=== PATIENT | male | born 1950 | race Caucasian/White ===

== ENCOUNTER 2019-04-16 20:39 | Inpatient (IN) | payer MEDICARE, BC ==
[2019-04-16] MEDS ORDERED: Rocuronium Bromide 10 MG/ML (10ML VIAL) ONE (20:52)
[2019-04-16 21:00] LABS: Hemoglobin 5.5 g/dL (14.0-18.0); Mean Corpuscular Hemoglobin 31.1 pg (27.0-31.0); Mean Platelet Volume 9.4 fL (7.4-10.4); Platelet Count 360 thou/uL (130-400); RBC Distribution Width 19.1 % (11.5-14.5); Red Blood Cell (RBC) Count 1.78 mill/uL (4.70-6.10); White Blood Cell (WBC) Count 18.8 thou/uL (4.8-10.8)
[2019-04-16] MEDS ORDERED: Ketamine 50 MG/ML (10ML VIAL) ONE (21:10)
[2019-04-16 21:14] LABS: Actual Bicarbonate (HCO3a) 15.5 mEq/L (22-28); Analyzer IN Cardio ER; Base Excess (BEa) -11.1 mEq/L (-2.0 to +3.0); CO2 Tension 37.7 mmHg (35.0-45.0); Carboxyhemoglobin (COHb) 1.6 gm% (0.0-3.0); Hemoglobin (Hb) 5.8 g/dL (14.0-18.0); O2 Tension (PaO2) 417.9 mmHg (> 80.0); Potassium - ABG Lab 4.47 mmol/L (3.70-5.30)
[2019-04-16 21:21] LABS: ALT (SGPT) 345 U/L (8-55); AST (SGOT) 616 U/L (5-34); Albumin 2.8 g/dL (3.4-4.8); Alkaline Phosphatase 55 U/L (40-110); Anion Gap 28 mmol/L (10-20); Bilirubin, Total 0.9 mg/dL (0.2-1.2); CK (CPK) 982 U/L (30-200); Calc. Creatinine Clearance 0 mL/min (70-130); Calcium 8.6 mg/dL (7.8-10.44); Carbon Dioxide 16 mmol/L (23-31); Chloride 99 mmol/L (98-107); Estimated GFR-MDRD 15; Globulin 2.3 g/dL (2.4-3.5); Glucose 178 mg/dL (80-115); Lipase 37 U/L (8-78); Potassium 4.8 mmol/L (3.5-5.1); Protein, Total 5.1 g/dL (5.8-8.1); Sodium 138 mmol/L (136-145)
--- NOTE | 2019-04-16 21:24 | RAD ---
Chest AP view INDICATION: CPR in progress; altered mental status COMPARISON: None FINDINGS: Lungs:Perihilar interstitial edema Cardiac silhouette:Mild to moderate cardiomegaly Pulmonary vasculature:Moderate pulmonary vascular congestion Pleural spaces:Small bilateral pleural effusions Upper abdomen:No abnormality seen. Osseous structures: No acute osseous abnormality. Additional findings:ET tube tip is seen 3.3 cm from the level of the tomasa. IMPRESSION: 1. Findings suspicious for mild CHF. 2. Intubation
[2019-04-16 21:25] LABS: Band 1 % (5-11); Eosinophils 1 % (0-10); Lymphocytes 13 % (21-51); MDiff Complete? YES; Monocytes 6 % (0-10); Neutrophil 79 % (42-75); Nucleated RBC 6 % (0); Platelet Morphology Comment Appears Adequate
[2019-04-16 21:29] LABS: Bilirubin Negative (Negative); Blood, Urine Negative (Negative); Clarity Turbid (Clear); Glucose, Urine (Dipstick) Normal (Negative); Leukocyte Negative Leu/uL (Negative); Nitrite Negative (Negative); Protein, Urine (Dipstick) 10 mg/dL (Neg-Trace); Urobilinogen Normal mg/dL (Less than 2)
[2019-04-16] MEDS ORDERED: Piperacillin/Tazobactam 4.5 GM VIAL ONE (21:29)
[2019-04-16 21:31] LABS: PTT 30.1 SEC (22.9-36.1); Prothrombin Time 22.3 SEC (12.0-14.7)
[2019-04-16 21:33] LABS: ALV-art Gradient 247.975 (0-20); Puncture Site RRA; pH, Arterial 7.23 (7.35-7.45)
[2019-04-16 21:34] LABS: BUN (Urea Nitrogen) 127 mg/dL (8.4-25.7)
--- NOTE | 2019-04-16 21:48 | RAD ---
Chest AP view INDICATION: Central venous catheter placement COMPARISON: Prior exam performed on April 16, 2019 at 8:39 PM FINDINGS: Lungs:The lungs are clear Cardiac silhouette:Stable cardia megaly Pulmonary vasculature:Stable pulmonary vascular congestion Pleural spaces:Small bilateral pleural effusions Upper abdomen:No abnormality seen. Osseous structures: No acute osseous abnormality. Additional findings:ET tube tip is seen just beyond the lower thoracic inlet. There is a new left IJ central venous catheter with its tip projecting in the region of the left brachiocephalic vein. IMPRESSION: New left IJ central venous catheter with the tip projecting in the region of the left bra chiocephalic vein. Stable CHF.
[2019-04-16 21:51] LABS: CKMB 27.3 ng/mL (0-6.6)
[2019-04-16] MEDS ORDERED: fentaNYL Citrate/PF 2,000 MCG in Sodium Chloride 0.9% 60 ML IV SCH (21:56)
--- NOTE | 2019-04-16 22:27 | CT ---
CT Brain WO Con: 04/16/2019 9:34 PM CLINICAL HISTORY: Altered mental status. IMAGING TECHNIQUE: Multiple CT images were obtained of the brain without IV contrast. COMPARISON: None. FINDINGS: Brain: No acute infarct or hemorrhage is evident. No midline shift. Ventricles: Normal. No hydrocephalus.. Skull: Intact.. Visualized Paranasal sinuses: Clear.. Mastoid air cells:Clear. Extracranial soft tissues:Normal. IMPRESSION: No acute intracranial abnormality.
[2019-04-16] MEDS ORDERED: Norepinephrine 8 MG/0.9% NS 250 ML ONE (22:30)
--- NOTE | 2019-04-16 22:41 | CT ---
CT OF THE ABDOMEN AND PELVIS WITHOUT IV CONTRAST INDICATION: History of CPR and sepsis COMPARISON: None FINDINGS: This examination is limited for the evaluation of solid organs and vascular structures due to the lac k of intravenous contrast. ABDOMEN: Lung bases: There is a small right and tiny left pleural effusion. There is bibasilar atelectasis. Th ere is a moderate cardiomegaly. There are prominent coronary artery and thoracic aortic calcifications. Liver: No focal lesion. Gallbladder: Mildly contracted Pancreas: Normal. Adrenal glands: Normal. Spleen: Normal. Kidneys and ureters: Normal. No hydronephrosis. Vasculature: There are severe vascular calcifications seen involving the visualized vasculature. Lymph nodes:No lymphadenopathy. Free fluid in abdomen:No free fluid is evident. PELVIS: Small and large bowel: Colonic diverticulosis and a mild amount retained stool within the colon. Jake lona catheter is seen within the gastric body. Appendix:Normal Bladder: Decompressed with a Brower catheter Rectal and perirectal soft tissues:Normal. Reproductive structures: Normal. Free fluid in pelvis: No free fluid is evident. Lymphadenopathy pelvis: No lymphadenopathy is evident. Osseous structures: Bilateral pars defects at L5 with grade 1 anterolisthesis. No acute fracture or s ubluxation demonstrated. There is scattered degenerative and osteoarthritic changes. Soft tissues:Normal. IMPRESSION: 1. Small right and tiny left pleural effusion with bibasilar atelectasis. 2. Colonic diverticulosis. 3. Bilateral pars defects at L5 with grade 1 anterolisthesis.
[2019-04-16] MEDS ORDERED: Furosemide 20 MG/2 ML VIAL ONE (23:12)
[2019-04-16] MEDS ORDERED: Pantoprazole 40 MG VIAL ONE (23:26)
[2019-04-16] MEDS ORDERED: Pantoprazole 80 MG, Admixture Fee 1 EACH in Sodium Chloride 0.9% 100 ML IVPB SCH (23:45)
[2019-04-16] MEDS ORDERED: Acetaminophen 650 MG Suppository PR PRN (23:46)
[2019-04-16] MEDS ORDERED: Ondansetron PF 4 MG/2 ML Vial IVP PRN (23:46)
--- NOTE | 2019-04-17 00:22 | PDOC.EVN ---
Event Note - Event Note Event Note: [id number]
[2019-04-17] MEDS ORDERED: Octreotide Acetate 50 MCG/ML AMP SLOW IVP SCH (00:30)
[2019-04-17] MEDS ORDERED: Octreotide Acetate 1,250 MCG in Sodium Chloride 0.9% 250 ML 250 ML IVPB SCH (00:30)
[2019-04-17] MEDS ORDERED: EPINEPHrine 4 MG in Dextrose 5% in Water 250 ML IV SCH (00:45)
[2019-04-17] MEDS ORDERED: Sodium Bicarb 50 MEQ/50 ML VIAL IVP SCH (00:45)
[2019-04-17] MEDS ORDERED: Octreotide Acetate 50 MCG/ML AMP ONE (00:57)
[2019-04-17] MEDS ORDERED: Dexamethasone 10 MG/ML VIAL ONE (01:21)
[2019-04-17] MEDS ORDERED: Dextrose 5 %-0.45 % NaCl 1,000 ML IV SCH (01:30)
[2019-04-17] MEDS: cefTRIAXone\\ROCEPHIN 1 GM in Sodium Chloride 0.9% 100 ML IVPB SCH (03:08)
[2019-04-17 04:02] LABS: Hemoglobin 8.6 g/dL (14.0-18.0); Mean Corpuscular HGB CONC 32.7 g/dL (32.0-36.0); Mean Corpuscular Hemoglobin 30.7 pg (27.0-31.0); Mean Corpuscular Volume 93.8 fL (78.0-98.0); Mean Platelet Volume 9.1 fL (7.4-10.4); Platelet Count 299 thou/uL (130-400); RBC Distribution Width 17.4 % (11.5-14.5); Red Blood Cell (RBC) Count 2.82 mill/uL (4.70-6.10); White Blood Cell (WBC) Count 18.1 thou/uL (4.8-10.8)
[2019-04-17] MEDS: Sodium Bicarbonate 150 MEQ in Dextrose 5% in Water 1,000 ML IV SCH ×2 (04:05→20:41)
[2019-04-17 04:06] LABS: PTT 31.4 SEC (22.9-36.1); Prothrombin Time 22.6 SEC (12.0-14.7)
[2019-04-17] MEDS ORDERED: Fentanyl BOLUS 250 ML IVPB PRN (04:13)
[2019-04-17] MEDS ORDERED: Propofol BOLUS 1,000 MG/100 ML VIAL IV PRN (04:13)
[2019-04-17] MEDS ORDERED: DISCONTINUE PREVIOUS NARCOTIC PAIN MEDICATIONS AND BENZODIAZEPINES FS SCH (04:13)
[2019-04-17 04:15] LABS: Band 1 % (5-11); Lymphocytes 3 % (21-51); MDiff Complete? YES; Monocytes 7 % (0-10); Neutrophil 89 % (42-75); Nucleated RBC 4 % (0); Platelet Morphology Comment Appears Adequate
[2019-04-17] MEDS ORDERED: Vecuronium 10 MG VIAL IV PRN (04:15)
[2019-04-17] MEDS ORDERED: DO NOT USE PRE-EXISTING LYTE PROTOCOL FS SCH (04:15)
[2019-04-17] MEDS ORDERED: Acetaminophen 1,000 MG in Premix Bag 1 BAG IVPB PRN (04:15)
[2019-04-17] MEDS ORDERED: ALL FLUIDS SHOULD BE DEXTROSE FREE IF POSSIBLE FS SCH (04:15)
[2019-04-17 04:25] LABS: ALT (SGPT) 497 U/L (8-55); AST (SGOT) 1001 U/L (5-34); Albumin 2.7 g/dL (3.4-4.8); Alkaline Phosphatase 60 U/L (40-110); Anion Gap 29 mmol/L (10-20); BUN (Urea Nitrogen) 123 mg/dL (8.4-25.7); Bilirubin, Total 1.8 mg/dL (0.2-1.2); Calc. Creatinine Clearance 22 mL/min (70-130); Calcium 8.2 mg/dL (7.8-10.44); Carbon Dioxide 17 mmol/L (23-31); Chloride 100 mmol/L (98-107); Estimated GFR-MDRD 16; Globulin 2.4 g/dL (2.4-3.5); Glucose 227 mg/dL (80-115); Potassium 4.3 mmol/L (3.5-5.1); Protein, Total 5.1 g/dL (5.8-8.1); Sodium 142 mmol/L (136-145)
[2019-04-17 04:29] LABS: Magnesium 2.4 mg/dL (1.6-2.6); Phosphorus 7.6 mg/dL (2.3-4.7)
[2019-04-17 05:11] LABS: CKMB 25.9 ng/mL (0-6.6)
[2019-04-17] MEDS: Norepinephrine 16 MG in Dextrose 5% in Water 234 ML IVPB SCH (05:16)
[2019-04-17 06:47] LABS: Actual Bicarbonate (HCO3a) 16.5 mEq/L (22-28); Base Excess (BEa) -5.9 mEq/L (-2.0 to +3.0); Calcium, Ionized 1.01 mmol/L (1.12-1.30); Carboxyhemoglobin (COHb) 1.9 gm% (0.0-3.0); Hemoglobin (Hb) 8.5 g/dL (14.0-18.0); O2 Tension (PaO2) 72.5 mmHg (> 80.0); Potassium - ABG Lab 3.65 mmol/L (3.70-5.30); pH, Arterial 7.48 (7.35-7.45)
[2019-04-17 07:01] LABS: CO2 Tension 22.4 mmHg (35.0-45.0)
[2019-04-17 07:02] LABS: Puncture Site RRAD
[2019-04-17] MEDS: Pantoprazole 80 MG, Admixture Fee 1 EACH in Sodium Chloride 0.9% 100 ML IVP SCH ×2 (07:54→17:22)
[2019-04-17 10:05] LABS: INR-International Normal Ratio 2.2; PTT 35.5 SEC (22.9-36.1); Prothrombin Time 23.9 SEC (12.0-14.7)
[2019-04-17 10:14] LABS: Hemoglobin 8.4 g/dL (14.0-18.0); Mean Corpuscular HGB CONC 32.8 g/dL (32.0-36.0); Mean Corpuscular Hemoglobin 31.2 pg (27.0-31.0); Mean Platelet Volume 9.4 fL (7.4-10.4); Platelet Count 251 thou/uL (130-400); RBC Distribution Width 17.6 % (11.5-14.5); Red Blood Cell (RBC) Count 2.68 mill/uL (4.70-6.10)
[2019-04-17 10:20] LABS: Anion Gap 28 mmol/L (10-20); BUN (Urea Nitrogen) 121 mg/dL (8.4-25.7); Calc. Creatinine Clearance 23 mL/min (70-130); Calcium 7.5 mg/dL (7.8-10.44); Carbon Dioxide 17 mmol/L (23-31); Chloride 100 mmol/L (98-107); Estimated GFR-MDRD 17; Glucose 280 mg/dL (80-115); Magnesium 2.3 mg/dL (1.6-2.6); Potassium 3.8 mmol/L (3.5-5.1); Sodium 141 mmol/L (136-145)
--- NOTE | 2019-04-17 10:22 | PDOC.HOSPP ---
- Subjective Encounter Date: 04/17/19 Encounter Time: 10:17 Subjective: Mr. Henning was seen today in follow-up of cardiac arrest and GI bleed. He is intubated. I spoke with his who is at bedside. He was recently hospitalized at [facility] for what sounds like a CHF exacerbation. He was placed on Lasix. He was told he had a weak heart, and functioning at 30%. His was told that he had blood in his stool prior to discharge, and his blood count was a little low- He was given 2 units of blood. He was anxious to go home , was feeling better after that, and was discharged. She says after going home he " went down". He became more and more weak, Stopped eating. He did not take anything over the counter. He got so weak he could barely stand or sit up. He vomiting some dark material, and she called EMS. He apparently went into either asystole or PEA, and ACLS was started. He was intubated in the ER and found to have a low Hemglobin. His states he was a heavy drinker in the past, and also a heavy smoker. He has been drinking up till March 06. He does not have any known history of liver disease. - Objective Vital Signs & Weight: Vital Signs (12 hours) Pulse Resp BP 04/17/19 07:03 68 04/17/19 06:00 24 H 04/17/19 04:00 24 H 04/17/19 02:23 69 113/68 04/17/19 02:21 24 H Weight Weight 179 lb 0.246 oz Most Recent Monitor Data Heart Rate from ECG 54 NIBP 92/52 NIBP BP-Mean 65 Respiration from ECG 18 SpO2 100 I&O: 04/16/19 04/17/19 04/18/19 06:59 06:59 06:59 Intake Total 378.0 Output Total 375 185 Balance 3.0 -185 Result Diagrams: 04/17/19 09:40 04/17/19 09:40 Hospitalist ROS - Medication Medications: Active Medications Generic Name Dose Route Start Last Admin Trade Name Freq PRN Reason Stop Dose Admin Pantoprazole Sodium 80 mg/ 100 mls @ 10 mls/hr 04/17/19 00:30 04/17/19 07:54 Miscellaneous Medication 1 IVP 100 mls each/ Sodium Chloride INF OMAR Administration Ceftriaxone Sodium 1 gm/ 100 mls @ 200 mls/hr 04/17/19 01:00 04/17/19 03:08 Sodium Chloride IVPB 100 mls Q24HR OMAR Administration Sodium Bicarbonate 150 meq/ 1,150 mls @ 75 mls/hr 04/17/19 03:30 04/17/19 04: 05 Dextrose/Water IV 1,150 mls .[id number] OMAR Administration Norepinephrine Bitartrate 16 250 mls @ 0 mls/hr 04/17/19 05:00 04/17/19 05:16 mg/ Dextrose/Water IVPB 250 mls INF OMAR Administration Protocol Titrate - Exam Eye: PERRL, anicteric sclera Heart: RRR, no murmur, no gallops, no rubs, normal peripheral pulses Respiratory: CTAB, no wheezes, no rales, no ronchi, normal chest expansion, no tachypnea, normal percussion Gastrointestinal: soft, non-tender, non-distended, normal bowel sounds, no palpable masses, no hepatomegaly Extremities: no cyanosis, 2+ LE edema Hosp A/P (1) Acute blood loss anemia Code(s): D62 - ACUTE POSTHEMORRHAGIC ANEMIA Status: Acute (2) GI bleed Code(s): K92.2 - GASTROINTESTINAL HEMORRHAGE, UNSPECIFIED Status: Acute (3) Chronic systolic heart failure Code(s): I50.22 - CHRONIC SYSTOLIC (CONGESTIVE) HEART FAILURE Status: Acute (4) Diabetes mellitus type 2 in nonobese Code(s): E11.9 - TYPE 2 DIABETES MELLITUS WITHOUT COMPLICATIONS Status: Chronic (5) Hypertension Code(s): I10 - ESSENTIAL (PRIMARY) HYPERTENSION Status: Chronic (6) Acute kidney injury Code(s): N17.9 - ACUTE KIDNEY FAILURE, UNSPECIFIED Status: Acute - Plan * Cardiac arrest- ? etiology- if in fact he has systolic heart failure- this may have been due to an arrhythmia. Records have been requested from [facility] * Continue Hypothermic protocol * Acute blood loss anemia due to GI bleed- continue Protonix drip, and Sandostatin/Octreotide drip * Transfuse as needed, and GI has been consulted * Acute kidney injury- this is possibly due to the GI bleed- will consult Nephrology * Continue Vent Support- PCCM following * Condition is guarded
[2019-04-17 10:25] LABS: CKMB 17.3 ng/mL (0-6.6); Critical Call CKMB RESULT DECREASING
--- NOTE | 2019-04-17 10:55 | RAD ---
CHEST 1 VIEW PORTABLE: HISTORY: Respiratory distress. Line placement position evaluation. COMPARISON: 04/16/2019. FINDINGS: NG tube, endotracheal tube, and left central line is in place. Cardiomegaly with bilateral vascular congestion and some patchy alveolar parenchymal changes particularly in the right lung and perihilar region worsening from the prior study raising concern for pneumonia. IMPRESSION: Worsening alveolar parenchymal changes in the right lung concerning for pneumonia. Life support tube s in place. POS: GEOVANNY
[2019-04-17 11:09] LABS: Band 13 % (5-11); Burr Cells MODERATE= 6-15 cells (100X) (0-1/hpf); Hypochromia SLIGHT = 6-15 cells (100X) (0-5/hpf); Lymphocytes 1 % (21-51); MDiff Complete? YES; Monocytes 6 % (0-10); Neutrophil 80 % (42-75); Nucleated RBC 1 % (0); Ovalocytes SLIGHT = 2-5 cells (100X) (0-1/hpf); Platelet Morphology Comment Appears Adequate; Polychromasia MODERATE = 3-4 cells (100X) (0-2/hpf); White Blood Cell (WBC) Count 16.6 thou/uL (4.8-10.8)
[2019-04-17] MEDS ORDERED: Dextrose 5% in Water 1,000 ML IV PRN (13:18)
[2019-04-17] MEDS ORDERED: Dextrose 50% Abboject 50 ML SYRINGE IVP PRN (13:18)
[2019-04-17 14:46] LABS: Hemoglobin 7.9 g/dL (14.0-18.0); Mean Corpuscular HGB CONC 31.9 g/dL (32.0-36.0); Mean Corpuscular Hemoglobin 30.5 pg (27.0-31.0); Mean Corpuscular Volume 95.6 fL (78.0-98.0); Mean Platelet Volume 9.2 fL (7.4-10.4); Platelet Count 241 thou/uL (130-400); RBC Distribution Width 17.7 % (11.5-14.5); Red Blood Cell (RBC) Count 2.58 mill/uL (4.70-6.10); White Blood Cell (WBC) Count 16.5 thou/uL (4.8-10.8)
[2019-04-17 14:52] LABS: INR-International Normal Ratio 2.1; PTT 35.2 SEC (22.9-36.1)
[2019-04-17 15:04] LABS: Anisocytosis SLIGHT = 6-15 cells (100X) (0-5/hpf); Band 15 % (5-11); Burr Cells SLIGHT = 2-5 cells (100X) (0-1/hpf); Hypochromia SLIGHT = 6-15 cells (100X) (0-5/hpf); MDiff Complete? YES; Metamyelocyte 1 % (0-0); Monocytes 2 % (0-10); Neutrophil 82 % (42-75); Ovalocytes SLIGHT = 2-5 cells (100X) (0-1/hpf); Platelet Morphology Comment Appears Adequate; Poikilocytosis SLIGHT = 6-15 cells (100X) (0-5/hpf); Polychromasia MODERATE = 3-4 cells (100X) (0-2/hpf); Spherocytes SLIGHT = 1-5 cells (100X) (None Seen)
[2019-04-17] MEDS: HumaLOG 300 UNITS/3 ML VIAL SC PRN ×2 (15:05→18:08)
[2019-04-17] MEDS: Lorazepam 2 MG/ML VIAL SLOW IVP PRN ×2 (15:14→21:54)
[2019-04-17 15:15] LABS: Anion Gap 27 mmol/L (10-20); BUN (Urea Nitrogen) 122 mg/dL (8.4-25.7); Calc. Creatinine Clearance 23 mL/min (70-130); Calcium 7.4 mg/dL (7.8-10.44); Carbon Dioxide 18 mmol/L (23-31); Chloride 100 mmol/L (98-107); Estimated GFR-MDRD 17; Glucose 325 mg/dL (80-115); Magnesium 2.3 mg/dL (1.6-2.6); Phosphorus 7.5 mg/dL (2.3-4.7); Potassium 3.7 mmol/L (3.5-5.1); Sodium 141 mmol/L (136-145)
--- NOTE | 2019-04-17 15:27 | CON ---
DATE OF CONSULTATION: 04/17/2019 REQUESTING PHYSICIAN: Jean Washington MD REASON FOR CONSULTATION: Anemia and GI bleeding. 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 History is obtained from nursing, my chart review, and review of records of recent [facility] hospitalization. The patient has a history of COPD with active tobacco abuse, hypertension, hyperlipidemia, and diabetes. He was hospitalized for four days from 04/04 through 04/08 recently at [facility]. Per those records, he had presented with worsening shortness of breath and lower extremity edema and was found to have congestive heart failure based on the laboratory studies and characteristic chest x-ray findings. He was treated with diuresis. He had an echocardiogram showing ejection fraction 30% to 35% and grade 3 diastolic dysfunction and there is a note that this was a new finding. He was also found to be anemic with hemoglobin 7.7. There was some concern for GI bleeding. For reasons that are unclear to me, he was not evaluated by Gastroenterology during that hospitalization. Evidently, the patient did well with significant clinical improvement in his respiratory status with diuresis and the plan was to have him follow up as outpatient for further cardiac workup including stress test. He evidently had a positive FOBT at that time. Unfortunately yesterday, the patient essentially had a syncopal episode and was unresponsive at home. Report is that he evidently had a single episode of coffee-grounds emesis prior to passing out. When EMS arrived, he was coded. It is unclear if he was in asystole, PEA, or what, but he did regain pulses and was brought here and admitted to the ICU. He is being kept on the hypothermia protocol. He was on pressors for a while, but does have been able to be weaned off. He remains intubated. He has an orogastric tube in place and notably has only had about 50 mL of coffee-ground material pulled from the orogastric tube since admission. He has not had any stool output at all. Certainly, no melena. His hemoglobin on admission was found to be 5.5, which is a bit down from his recent hospitalization with 2 units of RBCs, hemoglobin has come up to 8.4. More importantly, he has evidence of multiorgan damage from shock with acute kidney injury. BUN 121 and creatinine 3.56. Troponin was elevated to 2.17. Lactic acid elevated to 9.6 and elevated transaminases with AST 1001 and ALT 497. Nephrology and Critical Care have also been consulted. He evidently just had an echocardiogram, but I do not have the report on that. I am not sure if the patient has ever undergone upper or lower endoscopy in the past. PAST MEDICAL HISTORY: Hypertension, hyperlipidemia, diabetes, CHF with ejection fraction 30% to 35% at recent hospitalization at [facility], COPD, and ongoing tobacco abuse. SOCIAL HISTORY: Positive for ongoing tobacco abuse. [facility] records say he has not used alcohol, but per verbal report, he had been drinking recently, so this is unclear to me. FAMILY HISTORY: Unable to obtain from the patient. REVIEW OF SYSTEMS: Unable to obtain due to the patient being sedated and intubated. ALLERGIES: NO KNOWN DRUG ALLERGIES. OUTPATIENT MEDICATIONS: 1. Potassium gluconate. 2. Krill oil. 3. Lasix 40 mg daily. 4. Acetaminophen with codeine. 5. Glipizide. 6. Aspirin 81 mg daily. 7. Zoloft. 8. Lyrica. 9. Trazodone. 10. Pantoprazole 40 mg daily. 11. Coreg. 12. Tramadol. 13. Chantix. INPATIENT MEDICATIONS: 1. Ceftriaxone 1 g IV q.24 hours. 2. Pantoprazole drip. 3. Octreotide drip. 4. Propofol drip. 5. Vecuronium drip. PHYSICAL EXAMINATION: VITAL SIGNS: Temperature 91.0 on hypothermia protocol, pulse 65, blood pressure 91/56, and 100% oxygen saturation on vent. GENERAL: Critically ill, pale, 68-year-old man, sedated, and intubated. SKIN: He is pale. No jaundice. No rashes were palpable. HEENT: Eyes, no scleral icterus. He does open and closes eyes spontaneously. ENT, the patient is intubated. Orogastric tube in place, 50 mL of dark coffee-ground material from the OG tube and this represents the entire amount suctioned out today. LYMPH: No submandibular or supraclavicular lymphadenopathy. Thyroid, nontender to palpation. HEART: Regular rate and rhythm. LUNGS: Bilateral vent sounds. ABDOMEN: Nondistended. Bowel sounds are present. Nontender to palpation. EXTREMITIES: 1 to 2+ bilateral lower extremity edema. NEURO: The patient does not follow commands. LABORATORY STUDIES: Admission hemoglobin was 5.5 with MCV 100. After 2 units RBC transfusion, hemoglobin is up to 8.4 and stable today. WBC 16.6 and platelets 251. Sodium 141, potassium 3.8, BUN 121, and creatinine 3.56. INR 2.2. Glucose 280, total bilirubin 1.8, alkaline phosphatase 60, AST initially 616 now up to 1001, ALT initially 345 now up to 497, albumin 2.7, and lipase 37. TSH 6.8. BNP elevated to 4014. Troponin elevated to 2.176, CK was 982, and CK-MB elevated to 27.3. Lactic acid initially 9.6 now down to 5.0. Blood and urine cultures, no growth to-date at 12 hours. IMAGING STUDIES: Chest x-ray shows right lung alveolar changes concerning for pneumonia. Brain CT shows no acute processes. CT of the abdomen and pelvis demonstrates cardiomegaly and diverticulosis. There is no lymphadenopathy or free fluid in the abdomen. Normal appearing liver, spleen, and pancreas. ASSESSMENT AND PLAN: 1. Anemia, acute on chronic, macrocytic. 2. Coffee-grounds emesis, a single episode on presentation, with no further evidence of overt bleeding since admission last night. 3. Congestive heart failure, with lower ejection fraction evidently new based on recent [facility] echocardiogram. 4. Elevated troponin. 5. Cardiogenic shock, status post cardiac arrest, now on hypothermia protocol. 6. Acute on chronic kidney injury. 7. Shock liver. 8. Coagulopathy. The patient's presentation certainly does not seem consistent with hypovolemic or hemorrhagic shock. He had a single episode of coffee-grounds emesis immediately preceding his syncopal episode and cardiac arrest, but there has been no further evidence of overt bleeding since he arrived here, and hemoglobin responded well to initial transfusion and has been stable today. I would not blame an acute gastrointestinal bleed for this presentation. Rather, he evidently had evidence of worsening cardiac function during his recent [facility] hospitalization, has elevated troponin as well as BNP here, so cardiogenic shock seems much more likely to me. He has evidence of multiorgan failure due to this as well as shock liver. He is certainly too ill to do any endoscopic investigations at this time, particularly again there has been no further evidence of overt bleeding since arrival. I would recommend continuing to trend the H and H, transfuse as needed. Monitor for any signs of overt bleeding going forward. I would continue the IV pantoprazole, but I think the octreotide can be discontinued. GI can follow along. The patient's prognosis is guarded. We would also advise consideration of formal Cardiology consultation pending echocardiogram results, but would leave that decision up to Primary Service. Thank you for the consultation. Please call anytime with questions or concerns. Job ID: [id number]
[2019-04-17 15:51] LABS: CKMB 18.6 ng/mL (0-6.6)
[2019-04-17 20:39] LABS: Hemoglobin 7.8 g/dL (14.0-18.0); Mean Corpuscular HGB CONC 32.5 g/dL (32.0-36.0); Mean Corpuscular Hemoglobin 30.2 pg (27.0-31.0); Mean Corpuscular Volume 92.9 fL (78.0-98.0); Mean Platelet Volume 8.6 fL (7.4-10.4); Platelet Count 264 thou/uL (130-400); Red Blood Cell (RBC) Count 2.59 mill/uL (4.70-6.10); White Blood Cell (WBC) Count 18.1 thou/uL (4.8-10.8)
[2019-04-17 20:47] LABS: PTT 35.7 SEC (22.9-36.1); Prothrombin Time 22.1 SEC (12.0-14.7)
[2019-04-17 20:58] LABS: Band 9 % (5-11); Hypochromia SLIGHT = 6-15 cells (100X) (0-5/hpf); Lymphocytes 3 % (21-51); MDiff Complete? YES; Monocytes 1 % (0-10); Neutrophil 87 % (42-75); Platelet Morphology Comment Appears Adequate
[2019-04-17 21:11] LABS: Anion Gap 18 mmol/L (10-20); BUN (Urea Nitrogen) 117 mg/dL (8.4-25.7); Calc. Creatinine Clearance 23 mL/min (70-130); Calcium 7.4 mg/dL (7.8-10.44); Carbon Dioxide 27 mmol/L (23-31); Chloride 101 mmol/L (98-107); Estimated GFR-MDRD 17; Glucose 276 mg/dL (80-115); Magnesium 2.2 mg/dL (1.6-2.6); Phosphorus 6.5 mg/dL (2.3-4.7); Potassium 3.2 mmol/L (3.5-5.1); Sodium 143 mmol/L (136-145)
[2019-04-17 21:20] LABS: CKMB 12.8 ng/mL (0-6.6); Critical Call CKMB RESULT DECREASING
--- NOTE | 2019-04-17 21:27 | CON ---
DATE OF CONSULTATION: CONSULTING PHYSICIAN: Benedict Doherty MD REQUESTING PHYSICIAN: ER physician. REASON FOR CONSULTATION: Acute kidney injury. IMPRESSION: 1. Acute kidney injury, this is likely hemodynamically mediated in the context of possible cardiac event compounded by severe anemia. 2. Metabolic acidosis in the context of problem #1. PLAN: 1. The patient currently is not oliguric. Hopefully, the patient will begin recovery. However, for now, the patient to be on gentle IV fluid resuscitation. We will use a bicarb-based infusion to help address the metabolic acidosis in this patient. 2. Once the patient is able to be off pressors and unable to maintain his hemodynamics, we will likely discontinue the IV fluid to avoid precipitating worsening cardiac failure/pulmonary congestion. 3. Renally dose all medications and avoid potentially nephrotoxic agents. 4. Blood transfusions on p.r.n. basis. 5. Further management to be dependent on the clinical course. At this point, there is no emergent indication for renal replacement therapy. Hopefully, renal function will improve and this modality of treatment will not be needed unless the renal function does not improve significantly. HISTORY OF PRESENT ILLNESS: History is that of 68-year-old gentleman who was recently hospitalized at [facility] this month with anemia and was subsequently discharged with about a hemoglobin of 7.7. The patient's syncopized at home and was noted with a hemoglobin of 5. According to record, during the hospitalization, evidence of gastrointestinal bleed was noted, though no significant workup was carried out. The patient on presentation was noted with a history of coffee-grounds emesis with hemoglobin down to 5.5. On presentation, the renal function was noted to be worse with a creatinine of 4.07, bicarb of 16, BNP of 4014, hemoglobin of 5.5 with a white count of 18,000. PAST MEDICAL HISTORY: Significant for congestive heart failure with EF about 30% to 35%, hypertension, dyslipidemia, diabetes myelitis, tobacco abuse, COPD. MEDICATIONS: Reviewed as documented on PPDai. ALLERGIES: NO KNOWN DRUG ALLERGIES. SOCIAL HISTORY: Significant for ongoing tobacco use. FAMILY HISTORY: Could not be obtained at this point. REVIEW OF SYSTEMS: Could not be obtained as the patient is sedated and intubated. PHYSICAL EXAMINATION: GENERAL/VITAL SIGNS: The patient was found hypothermic protocol with the following vital signs. Blood pressure 118/62, on pressors, temperature 91. HEENT: Unremarkable. CARDIOVASCULAR: First and second heart sounds were heard. RESPIRATORY: Revealed vented sounds. DIGESTIVE: Revealed a benign abdomen. EXTREMITIES: Some pedal edema. NEUROLOGICAL: The patient is sedated and intubated. LYMPHATICS: No peripheral lymphadenopathy. SUMMARY: A 68-year-old gentleman who presented here status post syncopal episode at home, noted to be severely anemic with evidence of nonoliguric acute tubular necrosis. Thank you for this consultation. We will follow with you. Job ID: [id number]
[2019-04-18] MEDS: HumaLOG 300 UNITS/3 ML VIAL SC PRN ×5 (00:23→21:47)
[2019-04-18] MEDS: cefTRIAXone\\ROCEPHIN 1 GM in Sodium Chloride 0.9% 100 ML IVPB SCH (00:34)
[2019-04-18 01:11] LABS: Anion Gap 16 mmol/L (10-20); BUN (Urea Nitrogen) 112 mg/dL (8.4-25.7); Calc. Creatinine Clearance 24 mL/min (70-130); Calcium 7.4 mg/dL (7.8-10.44); Carbon Dioxide 30 mmol/L (23-31); Chloride 100 mmol/L (98-107); Estimated GFR-MDRD 18; Glucose 268 mg/dL (80-115); Sodium 143 mmol/L (136-145)
[2019-04-18 01:13] LABS: Potassium 2.9 mmol/L (3.5-5.1)
[2019-04-18] MEDS ORDERED: Potassium Chloride 40 MEQ in Premix Bag 1 BAG IVPB SCH (03:30)
[2019-04-18] MEDS: Propofol 1,000 MG/100 ML VIAL IV PRN (03:31)
[2019-04-18 05:14] LABS: Phosphorus 5.7 mg/dL (2.3-4.7)
[2019-04-18 05:17] LABS: Calcium 7.4 mg/dL (7.8-10.44); Magnesium 2.2 mg/dL (1.6-2.6)
[2019-04-18 05:18] LABS: ALT (SGPT) 362 U/L (8-55); AST (SGOT) 450 U/L (5-34); Albumin 2.2 g/dL (3.4-4.8); Alkaline Phosphatase 52 U/L (40-110); Anion Gap 14 mmol/L (10-20); BUN (Urea Nitrogen) 113 mg/dL (8.4-25.7); Bilirubin, Direct 0.9 mg/dL (0.1-0.3); Bilirubin, Total 1.1 mg/dL (0.2-1.2); Calc. Creatinine Clearance 25 mL/min (70-130); Calcium 7.3 mg/dL (7.8-10.44); Carbon Dioxide 32 mmol/L (23-31); Chloride 101 mmol/L (98-107); Estimated GFR-MDRD 19; Glucose 231 mg/dL (80-115); Protein, Total 4.2 g/dL (5.8-8.1); Sodium 144 mmol/L (136-145)
[2019-04-18 05:23] LABS: Potassium 2.9 mmol/L (3.5-5.1)
[2019-04-18 05:33] LABS: CKMB 9.9 ng/mL (0-6.6); Critical Call CKMB RESULT DECREASING
[2019-04-18 05:36] LABS: Band 4 % (5-11); Hemoglobin 7.6 g/dL (14.0-18.0); Hypochromia SLIGHT = 6-15 cells (100X) (0-5/hpf); Lymphocytes 6 % (21-51); MDiff Complete? YES; Mean Corpuscular HGB CONC 32.2 g/dL (32.0-36.0); Mean Corpuscular Hemoglobin 30.1 pg (27.0-31.0); Mean Corpuscular Volume 93.4 fL (78.0-98.0); Mean Platelet Volume 9.2 fL (7.4-10.4); Monocytes 2 % (0-10); Neutrophil 88 % (42-75); Nucleated RBC 8 % (0); Platelet Count 279 thou/uL (130-400); Platelet Morphology Comment Appears Adequate; Red Blood Cell (RBC) Count 2.52 mill/uL (4.70-6.10); White Blood Cell (WBC) Count 17.1 thou/uL (4.8-10.8)
[2019-04-18] MEDS: Pantoprazole 80 MG, Admixture Fee 1 EACH in Sodium Chloride 0.9% 100 ML IVP SCH ×2 (06:46→18:36)
[2019-04-18 06:48] LABS: Base Excess (BEa) 6.6 mEq/L (-2.0 to +3.0); CO2 Tension 38.1 mmHg (35.0-45.0); Calcium, Ionized 0.97 mmol/L (1.12-1.30); Carboxyhemoglobin (COHb) 1.6 gm% (0.0-3.0); Hemoglobin (Hb) 9.7 g/dL (14.0-18.0); O2 Tension (PaO2) 74.2 mmHg (> 80.0); pH, Arterial 7.51 (7.35-7.45)
[2019-04-18 07:08] LABS: Puncture Site RRAD
[2019-04-18 07:09] LABS: ALV-art Gradient 163.375 (0-20)
--- NOTE | 2019-04-18 08:07 | CON ---
DATE OF CONSULTATION: HISTORY OF PRESENT ILLNESS: Bear Henning is a 68-year-old gentleman, who brought into the ER last night after his noticed that he was vomiting and shortly thereafter, he had difficulty breathing. From the ER note, his initial blood pressure was 134/71, pulse 92, respirations 14, saturations were 89%. Apparently, some kind of cardiac arrest arose. He was intubated and started on a cooling blanket. It is unclear what his initial rhythm was, but according to the doctor, it was his VFib or Vtach. His is at the bedside who states that was just discharged from the hospital a week ago from [facility] here locally with a diagnosis of renal failure, not better to be dialyzed, congestive heart failure with 30% EF. She brought a list of medicine from home, which included Protonix 40, Zoloft 100, Coreg 3.125, aspirin, glipizide 5 mg, Lyrica 150, Lasix 40, Chantix. The patient has a history of heavy alcohol and tobacco abuse in the past. The says he has no prior history of pneumonia or TB or bronchial asthma. PAST MEDICAL HISTORY: Otherwise, pertinent for apparently some kind of liver issues, CHF, renal failure, hypothyroidism, he is in the process of trying to get discharge from [facility]. PAST SURGICAL HISTORY: says none. 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 REVIEW OF SYSTEMS: Unobtainable. He is on a cooling blanket. PHYSICAL EXAMINATION: VITAL SIGNS: Blood pressure 92/52, pulse 60, respirations 18. Brower catheter is 90. HEENT: Pupils are equal. CHEST: Decreased breath sounds. Rhonchi. CARDIAC: Normal S1 and S2. No gallops. ABDOMEN: No masses. LABORATORY DATA: White count 18,000, H and H 8 and 26, and platelet count is 299. INR is 2. PO2 is 72, pCO2 of 20, pH 7.48 at a rate of 24, 50%, PEEP of 7. BUN and creatinine of 123 and 3.7, bicarb is 17. His AST is 1000, ALT is 495. BNP is 4000. Cortisol of 75. Thyroid function is 6.8, slightly elevated. X-ray shows minimal infiltrate in the right lung than much of the left lung. IMPRESSION: 1. Status post cardiopulmonary arrest, unclear whether he has baseline ventricular tachycardia, ventricular fibrillation, or pulseless electrical activity. 2. Abnormal liver function, probably cirrhosis. 3. Increased renal failure. 4. Diabetes. 5. Hypothyroidism. 6. Tobacco abuse. PLAN: He was started on a cooling protocol for out of hospital cardiac arrest. At this stage, he has multiorgan failure. He is on pressors bicarb drip. He is on octreotide drip, Levophed drip, empiric antibiotics. Once his cooling resolves, reassess neurological status, pulmonary status, renal status to see whether he needs to be dialyzed etc. Otherwise, serial exam. Echo will be ordered. This is a 45-minute critical time. Job ID: [id number]
--- NOTE | 2019-04-18 08:24 | PRG ---
DATE OF SERVICE: SUBJECTIVE: Bear Henning remains intubated in the vent. He is off sedation for the time being this morning. OBJECTIVE: VITAL SIGNS: Blood pressure is 92 systolic, pulse 76, saturations 100%, respirations 12. HEENT: Pupils 2 mm. He is pretty much encephalopathic. CHEST: Extensive rhonchi, right greater than left. CARDIAC: Sinus tach. ABDOMEN: Soft. NEUROLOGIC: Encephalopathic. He is cool. He is paralyzed. He is sedated. IMAGING STUDIES: His x-ray shows extensive right-sided infiltrate. So far, cultures are negative. LABORATORY DATA: His lab shows worsening renal failure with BUN and creatinine of 113 and 3.34, glucose is 231, AST is 450, phosphorus is 5.7. Abdomen is low at 2.2. IMPRESSION: 1. Status post cardiopulmonary arrest, possible anoxic injury. 2. Baseline underlying renal failure, worsening. 3. Probably aspiration pneumonia. 4. Liver disease. PLAN: 1. We will hold sedation. He was just recently discharged from [facility] here locally with a diagnosis of presumed CHF, renal failure, anemia. 2. I am concerned he has multiorgan failure with probably anoxic injury. Antibiotics being adjusted. IV fluids being adjusted. His bicarb is 34. His bicarb is discontinued. If his renal status does not improve, he may require dialysis. Nephrology is consulted. 3. We will follow. TIME SPENT: One-half hour of critical time. Job ID: [id number]
--- NOTE | 2019-04-18 08:40 | HP ---
CHIEF COMPLAINT: Cardiac arrest. HISTORY OF PRESENT ILLNESS: Mr. Henning is a 68-year-old male with past medical history of ? congestive heart failure, was brought to the emergency room by EMS for cardiac arrest. As the patient was having dinner with his , after that started vomiting. EMS was called. During transport to the hospital, the patient had a cardiac arrest. CPR was performed. In the emergency room, the patient had weak pulses. The patient intubated and mechanically ventilated. Central venous catheter was inserted. Currently, the patient is post cardiac arrest. Hypothermia is started in the ED. Additional history obtained. The patient was released from [facility] one week ago, thought he had GI bleeding, endoscope was done. Also had CHF at that time. Tonight, the patient was eating at home, got choked, then vomited, otherwise likely aspirated. reports patient has history of alcoholism, currently smokes one carton of cigarettes a week. PAST MEDICAL HISTORY: 1. Congestive heart failure. 2. Chronic kidney disease. 3. Diabetes mellitus type 2. 4. Hypertension. 5. Arthritis. PAST SURGICAL HISTORY: No reported past surgical history at this time. PSYCHIATRIC HISTORY: Reported anxiety. SOCIAL HISTORY: He is a former heavy drinker per family. He is a heavy smoker. HOME MEDICATIONS: Please see home medication reconciliation form for updated medications. ALLERGIES: NO KNOWN ALLERGIES. REVIEW OF SYSTEMS: Unable to obtain. Patient currently intubated and sedated post cardiac arrest. PHYSICAL EXAMINATION: GENERAL: The patient is intubated, sedated. VITAL SIGNS: Blood pressure 133/79, pulse is 80, temperature is 94.8, pulse oximetry 100%. Currently, patient is on Levophed. HEAD AND NECK: Normocephalic. NECK: Supple. CHEST: Coarse bilateral breath sounds. HEART: Distant heart sounds. ABDOMEN: Bowel sounds hypoactive. NEUROLOGIC: Intubated and sedated. PSYCHIATRIC: Unable to assess. EXTREMITIES: No clubbing, no cyanosis. LABORATORY DATA: CT of the abdomen showed a small right and tiny pleural effusion, colonic diverticulosis. CT of the brain, no acute findings. Lactic acid is elevated at 9.6. BNP is more than 4000. Troponin 2.1. INR is 2. ABGs, pH 7.23, pCO2 of 37, PO2 is 417. This was done on 100% FiO2 on the ventilator. Sodium is 138, potassium 4.8, BUN is 127, creatinine 4.0. WBC count is 18.8, hemoglobin 5.5, platelets 360. Chest x-ray is suspicious for mild CHF. ASSESSMENT: 1. Cardiac arrest post CPR with return of spontaneous circulation. 2. Anemia, probably secondary to acute blood loss. 3. Gastrointestinal bleeding ? 4. Congestive heart failure history. 5. History of alcoholism. 6. Acute on chronic renal failure. 7. Lactic acidosis. 8. Metabolic acidosis. PLAN: 1. Admit to ICU. 2. Continue full ventilator support. 3. Hypothermia protocol started in the ED. 4. ED physician consulting advisor to command in combat for critical care management. 5. Keep n.p.o. 6. Titrate vasopressors for map of 65. 7. Type and cross and transfuse packed RBCs. 8. IV proton pump inhibitor drip. 9. To consult GI for evaluation and further management. 10. DVT prophylaxis, SCDs. 11. GI prophylaxis. Patient on IV proton pump inhibitor. 12. Patient's condition is very critical. 13. Expected length of stay 3 midnights or more. Job ID: [id number]
[2019-04-18 09:11] LABS: Hemoglobin 7.7 g/dL (14.0-18.0); Mean Corpuscular HGB CONC 31.8 g/dL (32.0-36.0); Mean Corpuscular Hemoglobin 30.2 pg (27.0-31.0); Mean Corpuscular Volume 94.9 fL (78.0-98.0); Mean Platelet Volume 9.2 fL (7.4-10.4); Platelet Count 286 thou/uL (130-400); RBC Distribution Width 18.1 % (11.5-14.5); Red Blood Cell (RBC) Count 2.54 mill/uL (4.70-6.10); White Blood Cell (WBC) Count 18.4 thou/uL (4.8-10.8)
[2019-04-18 09:32] LABS: Anion Gap 18 mmol/L (10-20); BUN (Urea Nitrogen) 111 mg/dL (8.4-25.7); Calc. Creatinine Clearance 25 mL/min (70-130); Calcium 7.5 mg/dL (7.8-10.44); Carbon Dioxide 27 mmol/L (23-31); Chloride 104 mmol/L (98-107); Estimated GFR-MDRD 19; Glucose 212 mg/dL (80-115); Magnesium 2.3 mg/dL (1.6-2.6); Potassium 3.6 mmol/L (3.5-5.1); Sodium 145 mmol/L (136-145)
[2019-04-18] MEDS: Cefepime 0.5 GM, Admixture Fee 1 EACH in Sodium Chloride 0.9% 100 ML IVPB SCH ×2 (09:33→21:27)
[2019-04-18] MEDS: Sodium Chloride 0.9% 1,000 ML IV SCH ×2 (09:34→18:36)
[2019-04-18 09:38] LABS: CKMB 6.4 ng/mL (0-6.6); Phosphorus 5.6 mg/dL (2.3-4.7)
--- NOTE | 2019-04-18 09:50 | PDOC.HOSPP ---
- Subjective Encounter Date: 04/18/19 Encounter Time: 09:46 Subjective: Mr. Henning was seen today in follow-up of cardiac arrest and GI bleed. He is currently intubated. He was reported to follow some commands when the sedation was lifted. - Objective Vital Signs & Weight: Vital Signs (12 hours) Pulse Resp BP 04/18/19 08:00 10 L 04/18/19 07:09 69 04/18/19 06:00 14 04/18/19 04:00 14 04/18/19 02:14 64 95/58 L 04/18/19 02:00 14 04/18/19 00:00 14 04/17/19 22:17 88 125/82 04/17/19 22:00 14 Weight Weight 182 lb 12.211 oz Most Recent Monitor Data Heart Rate from ECG 70 NIBP 92/57 NIBP BP-Mean 68 Respiration from ECG 12 SpO2 100 I&O: 04/17/19 04/18/19 04/19/19 06:59 06:59 06:59 Intake Total 378.0 2237.3 145.1 Output Total 375 1492 115 Balance 3.0 745.3 30.1 Result Diagrams: 04/18/19 08:26 04/18/19 08:26 Additional Labs: Accuchecks 04/18/19 04/18/19 04/17/19 06:33 00:16 18:10 POC Glucose 256 H 291 H 318 H 04/17/19 15:07 POC Glucose 338 H Hospitalist ROS - Medication Medications: Active Medications Generic Name Dose Route Start Last Admin Trade Name Freq PRN Reason Stop Dose Admin Pantoprazole Sodium 80 mg/ 100 mls @ 10 mls/hr 04/17/19 00:30 04/18/19 06:46 Miscellaneous Medication 1 IVP 100 mls each/ Sodium Chloride INF OMAR Administration Norepinephrine Bitartrate 16 250 mls @ 0 mls/hr 04/17/19 05:00 04/17/19 05:16 mg/ Dextrose/Water IVPB 250 mls INF OMAR Administration Protocol Titrate Sodium Chloride 1,000 mls @ 100 mls/hr 04/18/19 08:15 04/18/19 09:34 Normal Saline 0.9% IV 1,000 mls .Q10H OMAR Administration Cefepime HCl 0.5 gm/ 100 mls @ 0 mls/hr 04/18/19 09:00 04/18/19 09:33 Miscellaneous Medication 1 IVPB 100 mls each/ Sodium Chloride Q12HR OMAR Administration Insulin Human Lispro 0 units 04/17/19 13:18 04/18/19 06:42 Humalog SC 4 unit .MILD SLIDING SCALE PRN Administration MILD SLIDING SCALE Protocol Lorazepam 2 mg 04/17/19 04:13 04/17/19 21:54 Ativan SLOW IVP 05/17/19 04:13 2 mg Q1H PRN Administration Breakthrough agitation Propofol 1,000 mg 04/17/19 04:13 04/18/19 03:31 Diprivan IV 05/17/19 04:13 1,000 mg INF PRN Administration TO ACHIEVE GOAL RASS Protocol - Exam Eye: PERRL Heart: RRR, no murmur, no gallops, no rubs, normal peripheral pulses Respiratory: CTAB, no wheezes, no rales, no ronchi, normal chest expansion Gastrointestinal: soft, non-tender, normal bowel sounds, no palpable masses, no hepatomegaly Extremities: no cyanosis, no clubbing, 2+ LE edema Hosp A/P (1) Acute blood loss anemia Code(s): D62 - ACUTE POSTHEMORRHAGIC ANEMIA Status: Acute (2) GI bleed Code(s): K92.2 - GASTROINTESTINAL HEMORRHAGE, UNSPECIFIED Status: Acute (3) Chronic systolic heart failure Code(s): I50.22 - CHRONIC SYSTOLIC (CONGESTIVE) HEART FAILURE Status: Acute (4) Diabetes mellitus type 2 in nonobese Code(s): E11.9 - TYPE 2 DIABETES MELLITUS WITHOUT COMPLICATIONS Status: Chronic (5) Hypertension Code(s): I10 - ESSENTIAL (PRIMARY) HYPERTENSION Status: Chronic (6) Acute kidney injury Code(s): N17.9 - ACUTE KIDNEY FAILURE, UNSPECIFIED Status: Acute - Plan * Cardiac arrest- ? This is not felt to be due to acute blood loss or hemorrhagic shock- His records from [place] were reviewed. He has a low EF ( 30%)- and could have had an arrhythmia- will consult Cardiology * Acute blood loss anemia due to GI bleed- continue Protonix drip, Octreotide drip has been discontinued- GI input appreciated * Transfuse as needed * Acute kidney injury- due to ATN- non-oliguric Nephrology following * Continue Vent Support- PCCM following * Condition is guarded
[2019-04-18 09:52] LABS: Anisocytosis SLIGHT = 6-15 cells (100X) (0-5/hpf); Band 7 % (5-11); Hypochromia SLIGHT = 6-15 cells (100X) (0-5/hpf); Lymphocytes 4 % (21-51); MDiff Complete? YES; Monocytes 5 % (0-10); Neutrophil 84 % (42-75); Nucleated RBC 1 % (0); Platelet Morphology Comment Appears Adequate; Polychromasia MODERATE = 3-4 cells (100X) (0-2/hpf)
--- NOTE | 2019-04-18 10:05 | PRG ---
DATE OF SERVICE: 04/18/2019 SUBJECTIVE: Mr. Henning has finished the hypothermia protocol. He is getting a sedation holiday. He remains unresponsive, intubated on the ventilator. He has not had any further significant output from the orogastric tube. Has not had any melena or hematochezia. Hemoglobin is stable. OBJECTIVE: VITAL SIGNS: Temperature is 97.9, blood pressure is 92/57, pulse 70, 100% oxygen saturation on ventilator. GENERAL: Critically ill, intubated on ventilator, unresponsive to voice. HEART: Regular rate and rhythm. LUNGS: Bibasilar crackles, bilateral vent sounds. ABDOMEN: Bowel sounds are present. Nontender to palpation. EXTREMITIES: No peripheral edema. LABORATORY STUDIES: Hemoglobin 7.7, WBC 18.4, and platelets 286. INR 2.0. Sodium 144, potassium 2.9, BUN 113, creatinine 3.34, glucose 256, calcium 7.4, phosphorus 5.7, magnesium 2.2, total bilirubin down to 1.1, direct bilirubin 0.9, AST down to 450, ALT down to 362, alkaline phosphatase 52, and CK-MB is 9.9. ASSESSMENT AND PLAN: 1. Coffee-grounds emesis, single episode upon presentation, with no further evidence of overt gastrointestinal bleeding since admission. 2. Acute on chronic anemia, macrocytic. 3. Congestive heart failure. 4. Elevated troponin. 5. Cardiogenic shock, status post cardiac arrest. 6. Likely aspiration pneumonia, with right-sided infiltrate. 7. Acute on chronic kidney injury. 8. Shock liver, improving. 9. Coagulopathy. From a GI bleeding standpoint, I see no evidence of any overt bleeding since his arrival here. No plan for any endoscopic investigation or intervention. I spoke about this at length with the patient's family. The patient does have evidence of end-organ dysfunction. Note that the LFTs are trending down as would be expected with shock liver. GI will follow from a distance at this point, but please call anytime with questions or concerns or if there particularly are concerns about any recurrent overt bleeding. Job ID: [id number]
--- NOTE | 2019-04-18 10:23 | RAD ---
PORTABLE AP CHEST X-RAY: HISTORY: On ventilator. COMPARISON: 04/17/2019 FINDINGS: Endotracheal tube and left internal jugular vein central venous catheter as well as nasogastric tube remain in place and unchanged in position. There are persistent right perihilar interstitial and alve olar opacities with an increase in alveolar opacities at the right lung base compared to prior study. There is also increased density in the right lung base which may represent a small right pleural eff usion versus the parenchymal lung changes. Left lung remains clear. The cardiac silhouette is magnifi ed by projection. No other interval change. IMPRESSION: 1. Right perihilar interstitial and alveolar opacities with increase in interstitial and alveolar opa cities at the right lung base which may be related to worsening pneumonia. Followup to complete resol ution is recommended. 2. Lines and tubes stable in position. POS: KAELA
[2019-04-18] MEDS: Hydrocortisone Sod Succ/PF 100 mg/2 ml Vial IVP SCH ×2 (12:54→17:51)
[2019-04-18 14:01] LABS: Hemoglobin 7.4 g/dL (14.0-18.0); Platelet Count 281 thou/uL (130-400)
--- NOTE | 2019-04-18 14:37 | CON ---
DATE OF CONSULTATION: REASON FOR CONSULTATION: Cardiac arrest. HISTORY OF PRESENT ILLNESS: Mr. Henning is an unfortunate 68-year-old gentleman, who has been seen and evaluated at [facility]. He was noted to have an LVEF of 30% to 35% two weeks ago. I have reviewed the fax that was sent over. There appears to be a note by a branch lending manager name Leonora ([email or web address]). From the discharge summary, it appears Dr. Phillips recommended the patient be followed up as an outpatient with a noninvasive stress study. There was no mention of a LifeVest. Mr. Henning came in not feeling well. He appeared to have an increased difficulty with breathing. He developed nausea and vomiting while at dinner. He was intubated in the field and placed on cooling blanket, and his rhythm is unknown. PAST MEDICAL HISTORY: Renal insufficiency, hypothyroidism, alcohol abuse, tobacco abuse. SOCIAL HISTORY: As above. PAST SURGICAL HISTORY: None. REVIEW OF SYSTEMS: Unobtainable. He is currently intubated, sedated. PHYSICAL EXAMINATION: GENERAL: Patient is a pleasant gentleman, who is in no acute distress. He does appear older than stated age. VITAL SIGNS: Blood pressure 89/56, pulse , temperature afebrile. He is currently on norepinephrine. NEUROLOGIC: The patient is alert and oriented x3 with no focal neurologic deficits. HEENT: Sclerae without icterus. Mouth has moist mucous membranes with normal pallor. NECK: No JVD. Carotid upstroke brisk. No bruits bilaterally. LUNGS: Clear to auscultation with unlabored respirations. BACK: No scoliosis or kyphosis. CARDIAC: Regular rate and rhythm with normal S1 and S2. No S3 or S4 noted. No significant rubs, murmurs, thrills, or gallops noted throughout the precordium. PMI is not displaced. There is no parasternal heave. ABDOMEN: Soft, nontender, nondistended. No peritoneal signs present. No hepatosplenomegaly. No abnormal striae. EXTREMITIES: 2+ femoral and 2+ dorsalis pedis pulses. No cyanosis, clubbing, or edema. SKIN: No gross abnormalities. PERTINENT LABORATORY DATA: Include a hemoglobin of 7.4, creatinine of 3.3, which is slightly decreased from 3.34. IMPRESSION: 1. Cardiac arrest. 2. Respiratory failure. 3. Acute on chronic renal insufficiency. 4. Alcohol abuse. RECOMMENDATIONS: At this point, we will continue with supportive care. It appears that a cooling blanket has been discontinued. It has been over 24 hours. He is being re-warmed. According to the nurse when sedation has been taken off, he does follow commands intermittently. I will continue to watch his neurologic status. His improvement in neurologic status will dictate moving forward with any studies. Certainly, it would be difficult to proceed with angiography given a GFR of 19 and a creatinine of 3.3 and may consider noninvasive study initially to assess for ischemia. The patient would also likely need a defibrillator. Hold any beta-aubrey therapy, JONATHAN inhibitor therapy, ARB for now given hypotension and renal insufficiency. I did spend 45 minutes critical care time both at bedside and reviewing the patient's chart. Job ID: [id number]
[2019-04-18 16:15] LABS: Hemoglobin 7.4 g/dL (14.0-18.0); Mean Corpuscular HGB CONC 31.9 g/dL (32.0-36.0); Mean Corpuscular Hemoglobin 30.4 pg (27.0-31.0); Mean Corpuscular Volume 95.3 fL (78.0-98.0); Mean Platelet Volume 9.2 fL (7.4-10.4); Platelet Count 280 thou/uL (130-400); RBC Distribution Width 17.9 % (11.5-14.5); Red Blood Cell (RBC) Count 2.43 mill/uL (4.70-6.10)
[2019-04-18 16:26] LABS: Anion Gap 15 mmol/L (10-20); BUN (Urea Nitrogen) 107 mg/dL (8.4-25.7); Calc. Creatinine Clearance 25 mL/min (70-130); Calcium 7.3 mg/dL (7.8-10.44); Carbon Dioxide 30 mmol/L (23-31); Chloride 104 mmol/L (98-107); Estimated GFR-MDRD 19; Glucose 159 mg/dL (80-115); Magnesium 2.3 mg/dL (1.6-2.6); Potassium 3.7 mmol/L (3.5-5.1); Sodium 145 mmol/L (136-145)
[2019-04-18 16:28] LABS: Phosphorus 5.1 mg/dL (2.3-4.7)
[2019-04-18 16:35] LABS: CKMB 4.2 ng/mL (0-6.6)
[2019-04-18 16:58] LABS: Anisocytosis SLIGHT = 6-15 cells (100X) (0-5/hpf); Band 14 % (5-11); Basophilic Stippling SLIGHT = 1-2 cells (100X) (None Seen); Eosinophils 1 % (0-10); Lymphocytes 3 % (21-51); MDiff Complete? YES; Monocytes 2 % (0-10); Neutrophil 80 % (42-75); Nucleated RBC 6 % (0); Platelet Morphology Comment Appears Adequate; Polychromasia MODERATE = 3-4 cells (100X) (0-2/hpf); White Blood Cell (WBC) Count 18.4 thou/uL (4.8-10.8)
[2019-04-18 22:06] LABS: Band 1 % (5-11); Hemoglobin 7.4 g/dL (14.0-18.0); Lymphocytes 2 % (21-51); MDiff Complete? YES; Mean Corpuscular HGB CONC 31.3 g/dL (32.0-36.0); Mean Corpuscular Hemoglobin 29.7 pg (27.0-31.0); Mean Corpuscular Volume 95.1 fL (78.0-98.0); Mean Platelet Volume 8.9 fL (7.4-10.4); Monocytes 4 % (0-10); Neutrophil 93 % (42-75); Nucleated RBC 1 % (0); Platelet Count 267 thou/uL (130-400); Platelet Morphology Comment Appears Adequate; RBC Distribution Width 17.6 % (11.5-14.5); Red Blood Cell (RBC) Count 2.49 mill/uL (4.70-6.10); White Blood Cell (WBC) Count 18.7 thou/uL (4.8-10.8)
[2019-04-18 22:07] LABS: Phosphorus 5.5 mg/dL (2.3-4.7)
[2019-04-18 22:09] LABS: Anion Gap 14 mmol/L (10-20); BUN (Urea Nitrogen) 105 mg/dL (8.4-25.7); Calc. Creatinine Clearance 26 mL/min (70-130); Calcium 7.3 mg/dL (7.8-10.44); Carbon Dioxide 31 mmol/L (23-31); Chloride 104 mmol/L (98-107); Estimated GFR-MDRD 19; Glucose 202 mg/dL (80-115); Magnesium 2.3 mg/dL (1.6-2.6); Potassium 3.8 mmol/L (3.5-5.1); Sodium 145 mmol/L (136-145)
[2019-04-19] MEDS: Hydrocortisone Sod Succ/PF 100 mg/2 ml Vial IVP SCH ×5 (00:09→23:36)
[2019-04-19] MEDS: Pantoprazole 80 MG, Admixture Fee 1 EACH in Sodium Chloride 0.9% 100 ML IVP SCH ×4 (04:07→23:35)
[2019-04-19] MEDS: Sodium Chloride 0.9% 1,000 ML IV SCH ×2 (04:30→15:13)
[2019-04-19] MEDS: HumaLOG 300 UNITS/3 ML VIAL SC PRN ×4 (04:58→22:21)
[2019-04-19 05:25] LABS: Hemoglobin 7.1 g/dL (14.0-18.0); Lymphocytes 2 % (21-51); MDiff Complete? YES; Mean Corpuscular HGB CONC 31.1 g/dL (32.0-36.0); Mean Corpuscular Hemoglobin 29.8 pg (27.0-31.0); Mean Corpuscular Volume 95.7 fL (78.0-98.0); Monocytes 2 % (0-10); Neutrophil 96 % (42-75); Nucleated RBC 2 % (0); Platelet Count 243 thou/uL (130-400); Platelet Morphology Comment Appears Adequate; RBC Distribution Width 17.3 % (11.5-14.5); Red Blood Cell (RBC) Count 2.38 mill/uL (4.70-6.10); White Blood Cell (WBC) Count 17.3 thou/uL (4.8-10.8)
[2019-04-19 05:30] LABS: Anion Gap 16 mmol/L (10-20); BUN (Urea Nitrogen) 103 mg/dL (8.4-25.7); Calc. Creatinine Clearance 26 mL/min (70-130); Calcium 7.3 mg/dL (7.8-10.44); Carbon Dioxide 30 mmol/L (23-31); Chloride 106 mmol/L (98-107); Estimated GFR-MDRD 19; Glucose 214 mg/dL (80-115); Potassium 3.7 mmol/L (3.5-5.1); Sodium 148 mmol/L (136-145)
[2019-04-19 07:06] LABS: Actual Bicarbonate (HCO3a) 27.6 mEq/L (22-28); Base Excess (BEa) 2.4 mEq/L (-2.0 to +3.0); CO2 Tension 46.4 mmHg (35.0-45.0); Carboxyhemoglobin (COHb) 2.1 gm% (0.0-3.0); Hemoglobin (Hb) 7.3 g/dL (14.0-18.0); O2 Tension (PaO2) 73.6 mmHg (> 80.0); Potassium - ABG Lab 3.38 mmol/L (3.70-5.30); Puncture Site RRA; pH, Arterial 7.39 (7.35-7.45)
[2019-04-19] MEDS ORDERED: Pancrelipase DR 12000 1 CAP FS PRN (09:03)
[2019-04-19] MEDS ORDERED: Sodium Bicarbonate Tab 325 MG TAB PER TUBE PRN (09:03)
--- NOTE | 2019-04-19 09:05 | RAD ---
CHEST ONE VIEW: INDICATIONS: History of intubation. COMPARISON: 04/18/2019 FINDINGS: The patient is intubated with gastric catheter placement in the left IJ central venous catheter. Card iomegaly, pulmonary vascular congestion and perihilar air space opacities persist. The degree of nasrin hilar opacities has improved. There is worsening opacity however within the left lower lobe. Small bi lateral pleural effusions persist. No pneumothorax is evident. IMPRESSION: 1. Slight improvement in the right perihilar air space opacities which may reflect improving pneumoni a; however, there is new opacity in the left lower lobe which may reflect subsegmental atelectasis or pneumonia in this region. Continued followup is recommended. 2. Cardiomegaly with pulmonary vascular congestion persists. 3. No pneumothorax. 4. Stable tubes and lines. POS: OFF
--- NOTE | 2019-04-19 09:26 | PRG ---
DATE OF SERVICE: 04/19/2019 SUBJECTIVE: Bear Henning is a 68-year-old gentleman, status post cardiopulmonary arrest. OBJECTIVE: VITAL SIGNS: Pulse 71, blood pressure 107/67, sats 90%, respiratory rate 15. I's and O's have been consistently ahead. GENERAL: Sedation is withheld. Opens his eyes. CHEST: Decreased breath sounds without any wheezing. CARDIAC: Normal S1, S2. No gallops. ABDOMEN: Soft. NEUROLOGIC: Pupils are equal. LABORATORY DATA: His chest x-ray shows cardiomegaly. White count 17,000, H and H 7 and 22, platelet count 243. PO2 is 73, pCO2 is rate of 10, 40%, five of PEEP. BUN and creatinine are 103 and 3.2. EF is 20%. IMPRESSION: Congestive cardiomyopathy, renal failure, respiratory failure, possibly anoxic injury. We will hold sedation. We will start nutrition. PT, supportive care. EEG in the next 24 to 48 hours if he is not any more responsive. This is one-half hour of critical time. We will follow. Job ID: [id number]
--- NOTE | 2019-04-19 09:45 | PDOC.HOSPP ---
- Subjective Encounter Date: 04/19/19 Encounter Time: 09:44 Subjective: Mr. Henning was seen today in follow-up of cardiac arrest, with acute kidney injury and GI bleed. He is intubated. He does not follow commands when the sedation is lifted. He is opening his eyes, and moving his limbs. - Objective Vital Signs & Weight: Vital Signs (12 hours) Temp Pulse Resp BP Pulse Ox 04/19/19 08:16 69 101/57 L 04/19/19 08:00 10 L 93 L 04/19/19 07:00 98.8 F 04/19/19 06:00 10 L 04/19/19 04:00 99.0 F 10 L 04/19/19 02:49 69 116/65 04/19/19 02:00 10 L 04/19/19 00:00 98.4 F 10 L 04/18/19 22:29 73 109/74 04/18/19 22:00 10 L Weight Admit Weight 179 lb Weight 179 lb 3.773 oz Most Recent Monitor Data Heart Rate from ECG 69 NIBP 102/59 NIBP BP-Mean 73 Respiration from ECG 10 SpO2 93 I&O: 04/18/19 04/19/19 04/20/19 06:59 06:59 06:59 Intake Total 2237.3 2965.7 Output Total 1492 1413 125 Balance 745.3 1552.7 -125 Result Diagrams: 04/19/19 04:50 04/19/19 04:50 Additional Labs: Accuchecks 04/19/19 04/18/19 04/18/19 05:00 21:43 15:33 POC Glucose 219 H 210 H 170 H 04/18/19 11:09 POC Glucose 189 H Hospitalist ROS - Medication Medications: Active Medications Generic Name Dose Route Start Last Admin Trade Name Freq PRN Reason Stop Dose Admin Hydrocortisone Sodium Succinate 50 mg 04/18/19 12:00 04/19/19 06:16 Solu-Cortef IVP 04/25/19 12:01 50 mg Q6HR OMAR Administration Fentanyl Citrate 2,000 mcg/ 100 mls @ 0 mls/hr 04/16/19 21:56 04/19/19 02:08 Sodium Chloride IV 05/16/19 21:56 100 mls INF OMAR Administration Protocol Per Protocol Pantoprazole Sodium 80 mg/ 100 mls @ 10 mls/hr 04/17/19 00:30 04/19/19 04:07 Miscellaneous Medication 1 IVP 100 mls each/ Sodium Chloride INF OMAR Administration Norepinephrine Bitartrate 16 250 mls @ 0 mls/hr 04/17/19 05:00 04/17/19 05:16 mg/ Dextrose/Water IVPB 250 mls INF OMAR Administration Protocol Titrate Sodium Chloride 1,000 mls @ 100 mls/hr 04/18/19 08:15 04/19/19 04:30 Normal Saline 0.9% IV 1,000 mls .Q10H OMAR Administration Cefepime HCl 0.5 gm/ 100 mls @ 0 mls/hr 04/18/19 09:00 04/18/19 21:27 Miscellaneous Medication 1 IVPB 100 mls each/ Sodium Chloride Q12HR OMAR Administration Insulin Human Lispro 0 units 04/17/19 13:18 04/19/19 04:58 Humalog SC 3 unit .MILD SLIDING SCALE PRN Administration MILD SLIDING SCALE Protocol Lorazepam 2 mg 04/17/19 04:13 04/17/19 21:54 Ativan SLOW IVP 05/17/19 04:13 2 mg Q1H PRN Administration Breakthrough agitation Propofol 1,000 mg 04/17/19 04:13 04/18/19 03:31 Diprivan IV 05/17/19 04:13 1,000 mg INF PRN Administration TO ACHIEVE GOAL RASS Protocol - Exam Eye: PERRL Heart: RRR, no murmur, no gallops, no rubs, normal peripheral pulses Respiratory: CTAB (+ coarse breath sounds bilaterally, and rales at the bases), no ronchi Gastrointestinal: soft, non-tender, non-distended, normal bowel sounds, no palpable masses, no hepatomegaly Extremities: 2+ LE edema (+ generalized edema in both upper and lower extremities) Hosp A/P (1) Acute blood loss anemia Code(s): D62 - ACUTE POSTHEMORRHAGIC ANEMIA Status: Acute (2) GI bleed Code(s): K92.2 - GASTROINTESTINAL HEMORRHAGE, UNSPECIFIED Status: Acute (3) Chronic systolic heart failure Code(s): I50.22 - CHRONIC SYSTOLIC (CONGESTIVE) HEART FAILURE Status: Acute (4) Diabetes mellitus type 2 in nonobese Code(s): E11.9 - TYPE 2 DIABETES MELLITUS WITHOUT COMPLICATIONS Status: Chronic (5) Hypertension Code(s): I10 - ESSENTIAL (PRIMARY) HYPERTENSION Status: Chronic (6) Acute kidney injury Code(s): N17.9 - ACUTE KIDNEY FAILURE, UNSPECIFIED Status: Acute - Plan * Cardiac arrest-Cardiology input appreciated- and Echo results noted and discussed with the patient's . EF is now 15-20% * Acute Kidney injury- renal function has appeared to plateau, hopefully he has reached his emmanuel. * Acute blood loss anemia due to GI bleed- continue Protonix . His H&H has remained stable * Transfuse as needed * Continue Vent Support- wean as per PCCM * Condition is guarded * DM- blood glucose is a bit elevated- will add a low dose long acting insulin
--- NOTE | 2019-04-19 09:50 | PRG ---
DATE OF SERVICE: 04/18/2019 SUBJECTIVE: The patient is seen and examined, still on life support. Noted with the following vital signs. PHYSICAL EXAMINATION: Vital Signs: Blood pressure 108/66, pulse 71, respiratory rate of 10, FiO2 of 40. HEENT: Remarkable for endotracheal tube in place. CARDIOVASCULAR: First and second heart sounds were heard. RESPIRATORY: Revealed vented sounds. DIGESTIVE: Revealed a benign abdomen. EXTREMITIES: No significant peripheral edema. LABORATORY INVESTIGATION: Significant for white count of 18,700, hemoglobin 7.4. Chemistry showed a creatinine down to 3.28 from 3.34 and BUN of 107 with a bicarbonate of 30, potassium 2.9. FINAL IMPRESSION: 1. Acute tubular necrosis, more or less in the context of cardiorenal syndrome from cardiac event. 2. Hypokalemia, mainly due to with improvement in the bicarb level. 3. Metabolic acidosis, resolved, status post bicarb infusion. 4. Cardiopulmonary failure. 5. Multiorgan failure/cardiac event. PLAN: 1. Discontinue bicarb drip. 2. Replete potassium. 3. Renally dose all medications and avoid potentially nephrotoxic agents. 4. No emergent indication at this point for renal replacement therapy. Job ID: [id number]
[2019-04-19] MEDS ORDERED: Albumin 25% 25 GM/100 ML BOT IVPB SCH (10:52)
[2019-04-19] MEDS: Cefepime 0.5 GM, Admixture Fee 1 EACH in Sodium Chloride 0.9% 100 ML IVPB SCH ×2 (11:04→20:53)
[2019-04-19] MEDS: Insulin Glargine 4 UNITS in Pre-Filled Syringe 1 EACH SC SCH (11:12)
[2019-04-19] MEDS: Lorazepam 2 MG/ML VIAL SLOW IVP PRN (11:54)
[2019-04-19] MEDS: Norepinephrine 16 MG in Dextrose 5% in Water 234 ML IVPB SCH (11:54)
--- NOTE | 2019-04-19 17:11 | PRG ---
DATE OF SERVICE: 04/19/2019 SUBJECTIVE: Mr. Henning continues to be intubated, sedated. He was weaned off sedation, became very agitated today. He continues to be on pressor support. OBJECTIVE: VITAL SIGNS: Blood pressure 119/77, pulse 85, temperature afebrile. LUNGS: Clear to auscultation. HEART: Regular rate and rhythm. ABDOMEN: Soft, nontender, nondistended. EXTREMITIES: No edema. PERTINENT LABORATORY DATA: Hemoglobin 7.1, white blood cell count 17.3. Creatinine 3.22, which is down from 3.28. IMPRESSION: 1. Cardiac arrest. 2. Cardiomyopathy of unknown etiology. 3. Acute on chronic kidney disease. 4. Tobacco abuse. 5. Alcohol abuse. RECOMMENDATIONS: I had a long discussion with his daughters today. At this point, we will continue conservative therapy. We would like to have him wean off the vent prior to proceeding with any further studies. He would certainly need ICD prior to discharge. He will also need to have disposition of his coronary anatomy. This may be performed by noninvasive stress study versus coronary angiography. Of course, the coronary angiography run the risk of worsening contrast nephropathy. Continue pressor support. Job ID: [id number]
[2019-04-19] MEDS ORDERED: Dextrose 5 %-0.45 % NaCl 1,000 ML IV SCH (17:45)
--- NOTE | 2019-04-19 17:54 | PRG ---
DATE OF SERVICE: 04/19/2019 SUBJECTIVE: The patient is seen and examined, seems to be doing much better, afebrile, hemodynamically stable. OBJECTIVE: VITAL SIGNS: Blood pressure 123/78, pulse 71, respiratory rate of 16, O2 saturations are 92%. HEENT: Unremarkable for endotracheal tube in place. CARDIOVASCULAR: First and second heart sounds. RESPIRATORY: Revealed vented sounds. DIGESTIVE: Revealed a benign abdomen. EXTREMITIES: No peripheral edema. SKIN: Pale-looking skin. LABORATORY DATA: Laboratory investigation showed a white count of 17,300, hemoglobin 7.1. Chemistry showed a sodium of 148, phosphorus of 5.5, BUN of 103, creatinine of 3.22. IMPRESSION: 1. Hemodynamically mediated acute tubular necrosis in the context of cardiac event. 2. Profound azotemia out of proportion with the level of creatinine partly due to GI bleed. 3. Hypernatremia in the context of free water deficit. 4. Hyperphosphatemia. PLAN: 1. Increase free water intake in this patient. We will likely change the current IV fluid to more of a hypotonic fluid. 2. No emergent indication at this point for renal replacement therapy. The patient remains nonoliguric. 3. We will have the patient on erythropoiesis stimulating agent. 4. Transfuse this patient on p.r.n. basis as needed. 5. Further management to be dependent on the clinical course. Job ID: [id number]
[2019-04-19] MEDS: Sodium Chloride 0.45% 1,000 ML IV SCH (18:23)
[2019-04-19] MEDS: EPOETIN ALFA-EPBX (ESRD) 10,000 UNIT/ML VIAL SC SCH (20:34)
[2019-04-19] MEDS ORDERED: FLU VACC TS2019-20(65YR UP)/PF 180 MCG/0.5 ML SYRINGE IM ONE (21:00)
[2019-04-19] MEDS ORDERED: Prevnar 13-Val Conj/PF 0.5 ML SYRINGE IM ONE (21:00)
[2019-04-19] MEDS: Morphine 2 MG/ML SYRINGE SLOW IVP PRN (22:25)
[2019-04-20] MEDS: Morphine 2 MG/ML SYRINGE SLOW IVP PRN ×4 (02:35→22:37)
[2019-04-20] MEDS: Sodium Chloride 0.45% 1,000 ML IV SCH (03:41)
[2019-04-20] MEDS: HumaLOG 300 UNITS/3 ML VIAL SC PRN ×4 (04:17→22:02)
[2019-04-20 04:46] LABS: #Lymphocytes 0.7 thou/uL (1.20-3.40); #Monocytes 0.4 thou/uL (0.11-0.59); #Neutrophils 9.5 thou/uL (1.40-6.50); %Eosinophils 0.1 % (0.0-10.0); %Lymphocytes 6.7 % (21.0-51.0); %Monocytes 4.2 % (0.0-10.0); Hemoglobin 6.8 g/dL (14.0-18.0); Mean Corpuscular HGB CONC 30.8 g/dL (32.0-36.0); Mean Corpuscular Hemoglobin 29.4 pg (27.0-31.0); Mean Corpuscular Volume 95.3 fL (78.0-98.0); Mean Platelet Volume 9.8 fL (7.4-10.4); Platelet Count 178 thou/uL (130-400); White Blood Cell (WBC) Count 10.7 thou/uL (4.8-10.8)
[2019-04-20 04:50] LABS: Anion Gap 15 mmol/L (10-20); BUN (Urea Nitrogen) 95 mg/dL (8.4-25.7); Calc. Creatinine Clearance 27 mL/min (70-130); Calcium 7.4 mg/dL (7.8-10.44); Carbon Dioxide 28 mmol/L (23-31); Chloride 110 mmol/L (98-107); Estimated GFR-MDRD 20; Glucose 213 mg/dL (80-115); Potassium 3.4 mmol/L (3.5-5.1); Sodium 150 mmol/L (136-145)
[2019-04-20 06:38] LABS: Actual Bicarbonate (HCO3a) 25.3 mEq/L (22-28); Base Excess (BEa) 1.6 mEq/L (-2.0 to +3.0); CO2 Tension 35.7 mmHg (35.0-45.0); Calcium, Ionized 1.01 mmol/L (1.12-1.30); Carboxyhemoglobin (COHb) 1.7 gm% (0.0-3.0); Hemoglobin (Hb) 6.6 g/dL (14.0-18.0); O2 Tension (PaO2) 76.5 mmHg (> 80.0); Potassium - ABG Lab 3.23 mmol/L (3.70-5.30); pH, Arterial 7.47 (7.35-7.45)
[2019-04-20] MEDS: Hydrocortisone Sod Succ/PF 100 mg/2 ml Vial IVP SCH ×3 (06:39→18:08)
[2019-04-20 06:41] LABS: Puncture Site RBA
[2019-04-20 06:42] LABS: ALV-art Gradient 164.075 (0-20)
--- NOTE | 2019-04-20 07:58 | RAD ---
XR Chest 1 View Portable History: Ventilated patient Comparison: Radiograph prior day Findings: Enteric tube is in place with tip below diaphragm although out of field of view. Endotrache al tube tip is at the level of the clavicles. Pulmonary edema is similar. The left pleural effusion is now subpulmonic. There is a left IJ central venous catheter projecting of the superior SVC. No pneumothorax. Posterior left-sided rib fractures are age-indeterminate. Right perihilar consolidation is slightly increased. Impression: Slight interval increased confluence right perihilar consolidation concerning for infecti on.
[2019-04-20] MEDS: Insulin Glargine 4 UNITS in Pre-Filled Syringe 1 EACH SC SCH (08:47)
[2019-04-20] MEDS: risperiDONE 0.25 MG TAB PO SCH ×2 (08:47→22:02)
[2019-04-20] MEDS: Cefepime 0.5 GM, Admixture Fee 1 EACH in Sodium Chloride 0.9% 100 ML IVPB SCH ×2 (08:58→22:09)
--- NOTE | 2019-04-20 09:05 | PRG ---
DATE OF SERVICE: 04/20/2019 SUBJECTIVE: This morning, he remains in the ICU, intubated in the vent. OBJECTIVE: VITAL SIGNS: Blood pressure is 96/61, pulse 80, respiratory rate 18. His I's and O's have been consistently ahead. He is afebrile. HEENT: He still remains encephalopathic, does respond to his name, opening his eyes. CHEST: Decreased breath sounds. No wheezing. CARDIAC: Normal S1 and S2. No gallops. ABDOMEN: No masses. LABORATORY DATA: PO2 of 76, pCO2 of 34 ph 7.45_ rate of 10, PEEP of 5. His sodium is 151, potassium 3.4. His BUN is decreased to 95 from 103. His creatinine is stable. ASSESSMENT: Multiorgan failure, renal failure, cardiomyopathy status post cardiopulmonary arrest. I have added low-dose risperidone for his encephalopathy. Continue antibiotics, nutrition, PT, and supportive care. He is not weanable until his neurological status improved. This is one-half hour of critical time. Job ID: [id number] MTDD
--- NOTE | 2019-04-20 09:46 | PDOC.HOSPP ---
- Subjective Encounter Date: 04/20/19 Encounter Time: 09:44 Subjective: Mr. Henning was seen today in follow-up of cardiac arrest. He is intubated, and he is responsive, but agitated. - Objective Vital Signs & Weight: Vital Signs (12 hours) Temp Pulse Resp BP 04/20/19 08:00 13 04/20/19 07:28 68 111/64 04/20/19 07:18 98.5 F 04/20/19 06:00 13 04/20/19 04:00 99.8 F H 13 04/20/19 03:09 69 04/20/19 02:00 13 04/20/19 01:26 69 04/20/19 00:00 98.5 F 13 04/19/19 23:18 70 04/19/19 22:00 16 Weight Admit Weight 179 lb Weight 184 lb 1.376 oz Most Recent Monitor Data Heart Rate from ECG 74 NIBP 99/60 NIBP BP-Mean 73 Respiration from ECG 12 SpO2 98 I&O: 04/19/19 04/20/19 04/21/19 06:59 06:59 06:59 Intake Total 2965.7 4061.2 0 Output Total 1413 1415 175 Balance 1552.7 2646.2 -175 Result Diagrams: 04/20/19 03:30 04/20/19 03:30 Additional Labs: Accuchecks 04/20/19 04/19/19 04/19/19 04:20 22:15 16:55 POC Glucose 205 H 221 H 220 H 04/19/19 10:56 POC Glucose 238 H Hospitalist ROS - Medication Medications: Active Medications Generic Name Dose Route Start Last Admin Trade Name Freq PRN Reason Stop Dose Admin Epoetin Cortez-epbx 20,000 unit 04/19/19 18:00 04/19/19 20:34 Retacrit SC 20,000 unit Q7D OMAR Administration Hydrocortisone Sodium Succinate 50 mg 04/18/19 12:00 04/20/19 06:39 Solu-Cortef IVP 04/25/19 12:01 50 mg Q6HR OMAR Administration Fentanyl Citrate 2,000 mcg/ 100 mls @ 0 mls/hr 04/16/19 21:56 04/19/19 02:08 Sodium Chloride IV 05/16/19 21:56 100 mls INF OMAR Administration Protocol Per Protocol Pantoprazole Sodium 80 mg/ 100 mls @ 10 mls/hr 04/17/19 00:30 04/19/19 23:35 Miscellaneous Medication 1 IVP 100 mls each/ Sodium Chloride INF OMAR Administration Norepinephrine Bitartrate 16 250 mls @ 0 mls/hr 04/17/19 05:00 04/19/19 11:54 mg/ Dextrose/Water IVPB 250 mls INF OMAR Administration Protocol Titrate Cefepime HCl 0.5 gm/ 100 mls @ 0 mls/hr 04/18/19 09:00 04/20/19 08:58 Miscellaneous Medication 1 IVPB 100 mls each/ Sodium Chloride Q12HR OMAR Administration Insulin Glargine 4 units/ 0.04 mls @ 0 mls/hr 04/19/19 09:00 04/20/19 08:47 Miscellaneous Medication SC 0.04 mls QAM OMAR Administration Dexmedetomidine HCl 400 mcg/ 100 mls @ 0 mls/hr 04/19/19 14:00 04/20/19 07:22 Sodium Chloride IVPB 100 mls INF OMAR Administration Protocol Per Protocol Sodium Chloride 1,000 mls @ 100 mls/hr 04/19/19 18:00 04/20/19 03:41 1/2 Normal Saline IV 1,000 mls .Q10H OMAR Administration Insulin Human Lispro 0 units 04/17/19 13:18 04/20/19 04:17 Humalog SC 3 unit .MILD SLIDING SCALE PRN Administration MILD SLIDING SCALE Protocol Lorazepam 2 mg 04/17/19 04:13 04/19/19 11:54 Ativan SLOW IVP 05/17/19 04:13 2 mg Q1H PRN Administration Breakthrough agitation Morphine Sulfate 2 mg 04/17/19 04:13 04/20/19 07:42 Morphine SLOW IVP 05/17/19 04:13 2 mg Q1H PRN Administration BREAKTHROUGH PAIN/Agitation Propofol 1,000 mg 04/17/19 04:13 04/18/19 03:31 Diprivan IV 05/17/19 04:13 1,000 mg INF PRN Administration TO ACHIEVE GOAL RASS Protocol Risperidone 0.25 mg 04/20/19 09:00 04/20/19 08:47 Risperidone PO 0.25 mg BID OMAR Administration - Exam Eye: PERRL Heart: RRR, no murmur, no gallops, no rubs, normal peripheral pulses Respiratory: CTAB, no rales, no ronchi, normal chest expansion Gastrointestinal: soft, non-tender, non-distended, normal bowel sounds Extremities: no cyanosis (+ generalized edema in both upper and lower extremities), 2+ LE edema Hosp A/P (1) Acute blood loss anemia Code(s): D62 - ACUTE POSTHEMORRHAGIC ANEMIA Status: Acute (2) GI bleed Code(s): K92.2 - GASTROINTESTINAL HEMORRHAGE, UNSPECIFIED Status: Acute (3) Chronic systolic heart failure Code(s): I50.22 - CHRONIC SYSTOLIC (CONGESTIVE) HEART FAILURE Status: Acute (4) Diabetes mellitus type 2 in nonobese Code(s): E11.9 - TYPE 2 DIABETES MELLITUS WITHOUT COMPLICATIONS Status: Chronic (5) Hypertension Code(s): I10 - ESSENTIAL (PRIMARY) HYPERTENSION Status: Chronic (6) Acute kidney injury Code(s): N17.9 - ACUTE KIDNEY FAILURE, UNSPECIFIED Status: Acute - Plan * Cardiac arrest-patient remains intubated, but weaning is in progress * Acute Kidney injury-stabilized * Severe Anemia- agree with transfusion * Continue IV Protonix * Continue Vent Support- wean as per PCCM * Condition is guarded * DM- blood glucose is a bit elevated- will add a low dose long acting insulin
[2019-04-20] MEDS: Dextrose 5% in Water 1,000 ML IV SCH ×2 (12:44→22:02)
[2019-04-20] MEDS: Lorazepam 2 MG/ML VIAL SLOW IVP PRN (16:30)
[2019-04-20] MEDS: Pantoprazole 80 MG, Admixture Fee 1 EACH in Sodium Chloride 0.9% 100 ML IVP SCH (18:06)
[2019-04-20 19:10] LABS: Anion Gap 13 mmol/L (10-20); BUN (Urea Nitrogen) 97 mg/dL (8.4-25.7); Calc. Creatinine Clearance 27 mL/min (70-130); Calcium 7.4 mg/dL (7.8-10.44); Carbon Dioxide 27 mmol/L (23-31); Chloride 110 mmol/L (98-107); Estimated GFR-MDRD 20; Glucose 331 mg/dL (80-115); Potassium 3.4 mmol/L (3.5-5.1); Sodium 147 mmol/L (136-145)
[2019-04-20 19:54] LABS: Hemoglobin 7.1 g/dL (14.0-18.0)
--- NOTE | 2019-04-20 20:57 | PRG ---
DATE OF SERVICE: 04/20/2019 SUBJECTIVE: The patient is still on life support. Noted with the following vital signs. OBJECTIVE: VITAL SIGNS: Blood pressure 106/59, pulse of 77, respiratory rate of 16, O2 saturation of 98%. HEENT: Unremarkable. Endotracheal tube in place. CARDIOVASCULAR: First and second heart sounds were heard. RESPIRATORY: Revealed vented sounds. DIGESTIVE: Revealed a benign abdomen. EXTREMITIES: No significant peripheral edema. SKIN: No new gross rash. LYMPHATICS: No peripheral lymphadenopathy. LABORATORY INVESTIGATION: Showed a sodium of 150, potassium 3.4, creatinine of 3.11. IMPRESSION: 1. Acute tubular necrosis secondary to cardiac event. 2. Hypernatremia in the context of free water deficit. 3. Hypokalemia. PLAN: 1. We will discontinue half-normal saline and start this patient on few free water 5% dextrose and also increase the free water through the OG tube. 2. Further management to be dependent on the clinical course. Job ID: [id number]
[2019-04-21] MEDS: Hydrocortisone Sod Succ/PF 100 mg/2 ml Vial IVP SCH ×5 (00:22→23:31)
[2019-04-21] MEDS: HumaLOG 300 UNITS/3 ML VIAL SC PRN ×4 (03:46→22:01)
[2019-04-21] MEDS: Morphine 2 MG/ML SYRINGE SLOW IVP PRN (04:04)
[2019-04-21 04:08] LABS: #Lymphocytes 0.7 thou/uL (1.20-3.40); #Monocytes 0.6 thou/uL (0.11-0.59); #Neutrophils 8.6 thou/uL (1.40-6.50); %Basophils 0.1 % (0.0-1.0); %Eosinophils 0.1 % (0.0-10.0); %Lymphocytes 6.9 % (21.0-51.0); %Monocytes 6.1 % (0.0-10.0); %Neutrophils 86.9 % (42.0-75.0); Hemoglobin 7.1 g/dL (14.0-18.0); Mean Corpuscular HGB CONC 31.7 g/dL (32.0-36.0); Mean Corpuscular Volume 94.7 fL (78.0-98.0); Mean Platelet Volume 10.2 fL (7.4-10.4); Platelet Count 150 thou/uL (130-400); RBC Distribution Width 16.1 % (11.5-14.5); Red Blood Cell (RBC) Count 2.35 mill/uL (4.70-6.10); White Blood Cell (WBC) Count 9.9 thou/uL (4.8-10.8)
[2019-04-21 04:31] LABS: Anion Gap 13 mmol/L (10-20); BUN (Urea Nitrogen) 91 mg/dL (8.4-25.7); Calc. Creatinine Clearance 30 mL/min (70-130); Calcium 7.4 mg/dL (7.8-10.44); Carbon Dioxide 26 mmol/L (23-31); Chloride 110 mmol/L (98-107); Estimated GFR-MDRD 22; Glucose 300 mg/dL (80-115); Sodium 146 mmol/L (136-145)
[2019-04-21 07:13] LABS: Actual Bicarbonate (HCO3a) 23.6 mEq/L (22-28); Base Excess (BEa) 0.4 mEq/L (-2.0 to +3.0); CO2 Tension 31.8 mmHg (35.0-45.0); Calcium, Ionized 1.01 mmol/L (1.12-1.30); Carboxyhemoglobin (COHb) 1.2 gm% (0.0-3.0); Hemoglobin (Hb) 7.4 g/dL (14.0-18.0); O2 Tension (PaO2) 98.7 mmHg (> 80.0); Potassium - ABG Lab 2.89 mmol/L (3.70-5.30); pH, Arterial 7.49 (7.35-7.45)
[2019-04-21 07:26] LABS: Puncture Site LRA
[2019-04-21] MEDS: risperiDONE 0.25 MG TAB PO SCH ×2 (08:22→21:07)
[2019-04-21] MEDS: Insulin Glargine 4 UNITS in Pre-Filled Syringe 1 EACH SC SCH (08:23)
[2019-04-21] MEDS: Cefepime 0.5 GM, Admixture Fee 1 EACH in Sodium Chloride 0.9% 100 ML IVPB SCH ×2 (08:25→21:07)
[2019-04-21] MEDS: Dextrose 5% in Water 1,000 ML IV SCH ×2 (08:36→17:10)
[2019-04-21] MEDS ORDERED: FLU VACC TS2019-20(65YR UP)/PF 180 MCG/0.5 ML SYRINGE IM ONE (09:00)
[2019-04-21] MEDS ORDERED: Prevnar 13-Val Conj/PF 0.5 ML SYRINGE IM ONE (09:00)
--- NOTE | 2019-04-21 09:30 | PRG ---
DATE OF SERVICE: 04/21/2019 SUBJECTIVE: Bear Henning remains in the ICU on Precedex and risperidone. Pulse 70,_ blood pressure 106/60, respirations 18. I had a lengthy discussion with his this morning along with the patient's daughter, who stated that he has been essentially wheelchair and bedridden for many years with minimal significant activity. He has a little chronic pain in his legs secondary to possibly diabetic neuropathy. Extensive workup was done in the past. This morning, he is still agitated. OBJECTIVE: VITAL SIGNS: As noted, presently, his saturations are 96% at a rate of 4, respirations 20. Pulse 74. Blood pressure 110/70. CHEST: Extensive rhonchi and crackles. CARDIAC: Normal S1 and S2. No gallops. ABDOMEN: No masses. LABORATORY DATA: H and H are 7 and 21, platelet count of 50, white count 9000. PO2 is 98, pCO2 of 30, pH 7.43, rate of 6. BUN and creatinine are somewhat better. Potassium is 3. His BNP 759. ASSESSMENT: 1. Cardiomyopathy, ejection fraction 20%. 2. Metabolic encephalopathy. 3. Marked weakness of his lower legs secondary to neuropathy. 4. Renal failure. PLAN: 1. He clearly is not weanable. Decrease his rate to 4. 2. EEG and Neurology input being ordered. 3. Otherwise, we are going to continue empiric antibiotics, nutrition, PT, and supportive care. 4. I discussed with family on ongoing issues. They are to decide about a code status. TIME SPENT: This took one-half hour of Critical Care time. Job ID: [id number] MTDD
[2019-04-21] MEDS ORDERED: Rocuronium Bromide 50 MG/5 ML VIAL ONE (09:44)
--- NOTE | 2019-04-21 09:55 | PRG ---
DATE OF SERVICE: 04/21/2019 HISTORY OF PRESENT ILLNESS: Mr. Henning's status is unchanged. He continues to be uncooperative on weaning off Precedex. He is on maximum dose. OBJECTIVE: VITAL SIGNS: Blood pressure 114/50, pulse 71, temperature afebrile. LUNGS: Clear to auscultation. HEART: Regular rate and rhythm. ABDOMEN: Soft, nontender, and nondistended. EXTREMITIES: No edema. PERTINENT LABORATORY DATA: Potassium 3.0, sodium 146, chloride 110, creatinine 2.86. IMPRESSION: 1. Cardiac arrest. 2. Respiratory failure. 3. Alcohol abuse. 4. Profound anemia. 5. Renal insufficiency. RECOMMENDATIONS: Mr. Henning did receive 1 unit of packed red blood cells with minimal change in his hemoglobin. He will likely need a second unit. We would supplement potassium for low potassium level. Last magnesium appeared to be within normal limits. Job ID: [id number]
--- NOTE | 2019-04-21 09:56 | CON ---
DATE OF CONSULTATION: 04/20/2019 HISTORY OF PRESENT ILLNESS: Mr. Oden' status is unchanged. He remains intubated. He appears to be awaken to voice. He has been very combative on trying to wean off sedation. PHYSICAL EXAMINATION: VITAL SIGNS: Blood pressure 110/70, pulse 70, respirations 20. LUNGS: Rhonchi, rales bilaterally. HEART: Regular rate and rhythm. ABDOMEN: Soft, nontender, nondistended. EXTREMITIES: No edema. PERTINENT LABORATORY DATA: Hemoglobin 6.8. Creatinine 3.1. IMPRESSION: 1. Cardiac arrest. 2. Respiratory failure. 3. Alcohol abuse. 4. Profound anemia. 5. Acute on chronic renal insufficiency. RECOMMENDATIONS: Certainly at this point, we will continue current course. It will be important to wean off ventilator. Make further decisions. I did speak to his family. He will certainly need some type of disposition prior to discharge. He will need ICD prior to discharge based on his recent event. He does have a cardiomyopathy. His echo did suggest LVEF of 15%-20% with mildly dilated left atrium and moderate mitral regurgitation. Could certainly consider proceeding with angiography, but based on his GFR would be at increased risk of contrast nephropathy. I did discuss with his family. He is also at risk based on his hemoglobin. We will monitor closely. Job ID: [id number]
[2019-04-21] MEDS ORDERED: Rocuronium Bromide 10 MG/ML (10ML VIAL) IVP SCH (10:15)
--- NOTE | 2019-04-21 14:24 | PDOC.HOSPP ---
- Subjective Encounter Date: 04/21/19 Encounter Time: 14:21 Subjective: Mr. Henning was seen today in follow-up of cardiac arrest. He is intubated. His mental status in not much improved. - Objective Vital Signs & Weight: Vital Signs (12 hours) Temp Pulse Resp Pulse Ox 04/21/19 13:34 84 04/21/19 12:00 10 L 04/21/19 10:36 91 04/21/19 10:00 10 L 04/21/19 08:00 98.0 F 16 96 04/21/19 07:23 70 04/21/19 06:00 12 04/21/19 04:00 99.3 F 21 H Weight Admit Weight 179 lb 0.246 oz Weight 187 lb 13.341 oz Most Recent Monitor Data Heart Rate from ECG 92 NIBP 111/59 NIBP BP-Mean 76 Respiration from ECG 10 SpO2 94 I&O: 04/20/19 04/21/19 04/22/19 06:59 06:59 06:59 Intake Total 4061.2 5653.1 Output Total 1415 1595 330 Balance 2646.2 4058.1 -330 Result Diagrams: 04/21/19 03:40 04/21/19 03:40 Additional Labs: Accuchecks 04/21/19 04/21/19 04/20/19 10:01 03:47 21:58 POC Glucose 343 H 282 H 282 H 04/20/19 17:36 POC Glucose 354 H Hospitalist ROS - Medication Medications: Active Medications Generic Name Dose Route Start Last Admin Trade Name Freq PRN Reason Stop Dose Admin Epoetin Cortez-epbx 20,000 unit 04/19/19 18:00 04/19/19 20:34 Retacrit SC 20,000 unit Q7D OMAR Administration Hydrocortisone Sodium Succinate 25 mg 04/20/19 13:00 04/21/19 12:29 Solu-Cortef IVP 04/25/19 12:01 25 mg Q6HR OMAR Administration Fentanyl Citrate 2,000 mcg/ 100 mls @ 0 mls/hr 04/16/19 21:56 04/19/19 02:08 Sodium Chloride IV 05/16/19 21:56 100 mls INF OMAR Administration Protocol Per Protocol Pantoprazole Sodium 80 mg/ 100 mls @ 10 mls/hr 04/17/19 00:30 04/20/19 18:06 Miscellaneous Medication 1 IVP 100 mls each/ Sodium Chloride INF OMAR Administration Norepinephrine Bitartrate 16 250 mls @ 0 mls/hr 04/17/19 05:00 04/19/19 11:54 mg/ Dextrose/Water IVPB 250 mls INF OMAR Administration Protocol Titrate Cefepime HCl 0.5 gm/ 100 mls @ 0 mls/hr 04/18/19 09:00 04/21/19 08:25 Miscellaneous Medication 1 IVPB 100 mls each/ Sodium Chloride Q12HR OMAR Administration Insulin Glargine 4 units/ 0.04 mls @ 0 mls/hr 04/19/19 09:00 04/21/19 08:23 Miscellaneous Medication SC 0.04 mls QAM OMAR Administration Dexmedetomidine HCl 400 mcg/ 100 mls @ 0 mls/hr 04/19/19 14:00 04/21/19 12:28 Sodium Chloride IVPB 100 mls INF OMAR Administration Protocol Per Protocol Dextrose/Water 1,000 mls @ 100 mls/hr 04/20/19 10:45 04/21/19 08:36 D5w IV 1,000 mls .Q10H OMAR Administration Insulin Human Lispro 0 units 04/17/19 13:18 04/21/19 12:43 Humalog SC 4 unit .MILD SLIDING SCALE PRN Administration MILD SLIDING SCALE Protocol Lorazepam 2 mg 04/17/19 04:13 04/20/19 16:30 Ativan SLOW IVP 05/17/19 04:13 2 mg Q1H PRN Administration Breakthrough agitation Morphine Sulfate 2 mg 04/17/19 04:13 04/21/19 04:04 Morphine SLOW IVP 05/17/19 04:13 2 mg Q1H PRN Administration BREAKTHROUGH PAIN/Agitation Propofol 1,000 mg 04/17/19 04:13 04/18/19 03:31 Diprivan IV 05/17/19 04:13 1,000 mg INF PRN Administration TO ACHIEVE GOAL RASS Protocol Risperidone 0.25 mg 04/20/19 09:00 04/21/19 08:22 Risperidone PO 0.25 mg BID OMAR Administration - Exam Eye: PERRL, anicteric sclera Heart: RRR, no murmur, no gallops, no rubs Respiratory: CTAB, no wheezes, no rales, no ronchi, normal chest expansion, no tachypnea, normal percussion Gastrointestinal: soft, non-tender, non-distended, normal bowel sounds, no palpable masses, no hepatomegaly Extremities: no cyanosis, 1+ LE edema Hosp A/P (1) Acute blood loss anemia Code(s): D62 - ACUTE POSTHEMORRHAGIC ANEMIA Status: Acute (2) GI bleed Code(s): K92.2 - GASTROINTESTINAL HEMORRHAGE, UNSPECIFIED Status: Acute (3) Chronic systolic heart failure Code(s): I50.22 - CHRONIC SYSTOLIC (CONGESTIVE) HEART FAILURE Status: Acute (4) Diabetes mellitus type 2 in nonobese Code(s): E11.9 - TYPE 2 DIABETES MELLITUS WITHOUT COMPLICATIONS Status: Chronic (5) Hypertension Code(s): I10 - ESSENTIAL (PRIMARY) HYPERTENSION Status: Chronic (6) Acute kidney injury Code(s): N17.9 - ACUTE KIDNEY FAILURE, UNSPECIFIED Status: Acute - Plan * Cardiac arrest-patient remains intubated * Acute Kidney injury- sight improvement- will continue to avoid nephrotoxins * Acute blood loss anemia- his H&H responded with a rise to only 7.1 - will give another unit * Continue IV Protonix * Acute on chronic systolic heart failure- he will need AICD, and evaluation for ischemic heart disease once stabled * DM- blood glucose is a bit elevated- will increase Lantus * Hypernatremia- improved- now on D5W
[2019-04-21] MEDS ORDERED: Furosemide 20 MG/2 ML VIAL SLOW IVP SCH (15:45)
[2019-04-21] MEDS: Norepinephrine 16 MG in Dextrose 5% in Water 234 ML IVPB SCH (16:24)
[2019-04-21] MEDS: Pantoprazole 80 MG, Admixture Fee 1 EACH in Sodium Chloride 0.9% 100 ML IVP SCH (16:25)
[2019-04-21] MEDS: Potassium Chloride 40 MEQ in Dextrose 5% in Water 1,000 ML IVPB SCH (16:27)
[2019-04-21] MEDS: Lorazepam 2 MG/ML VIAL SLOW IVP PRN (20:38)
[2019-04-21] MEDS ORDERED: Pot Chloride/Pot Bicarb/Cit Ac 25 mEq Effervescent Tablet PO SCH (21:00)
[2019-04-21] MEDS ORDERED: Potassium Bicarbonate/Cit Ac 25 MEQ TAB PO SCH (21:15)
[2019-04-22] MEDS: Pantoprazole 80 MG, Admixture Fee 1 EACH in Sodium Chloride 0.9% 100 ML IVP SCH ×3 (03:00→23:50)
[2019-04-22 04:09] LABS: Anion Gap 12 mmol/L (10-20); BUN (Urea Nitrogen) 93 mg/dL (8.4-25.7); Calc. Creatinine Clearance 34 mL/min (70-130); Carbon Dioxide 27 mmol/L (23-31); Chloride 108 mmol/L (98-107); Estimated GFR-MDRD 26; Glucose 365 mg/dL (80-115); Potassium 3.7 mmol/L (3.5-5.1); Sodium 143 mmol/L (136-145)
[2019-04-22 04:16] LABS: #Lymphocytes 0.5 thou/uL (1.20-3.40); #Monocytes 0.7 thou/uL (0.11-0.59); #Neutrophils 7.9 thou/uL (1.40-6.50); %Eosinophils 0.1 % (0.0-10.0); %Lymphocytes 5.1 % (21.0-51.0); %Monocytes 7.9 % (0.0-10.0); %Neutrophils 86.9 % (42.0-75.0); Anisocytosis SLIGHT = 6-15 cells (100X) (0-5/hpf); Hemoglobin 7.2 g/dL (14.0-18.0); MDiff Complete? YES; Mean Corpuscular HGB CONC 31.8 g/dL (32.0-36.0); Mean Corpuscular Hemoglobin 29.5 pg (27.0-31.0); Mean Corpuscular Volume 92.9 fL (78.0-98.0); Mean Platelet Volume 10.4 fL (7.4-10.4); Platelet Count 114 thou/uL (130-400); Platelet Morphology Comment Appears Decreased; RBC Distribution Width 15.6 % (11.5-14.5); Red Blood Cell (RBC) Count 2.44 mill/uL (4.70-6.10); White Blood Cell (WBC) Count 9.1 thou/uL (4.8-10.8)
[2019-04-22] MEDS: Morphine 2 MG/ML SYRINGE SLOW IVP PRN (04:27)
[2019-04-22] MEDS: Hydrocortisone Sod Succ/PF 100 mg/2 ml Vial IVP SCH ×4 (05:43→23:47)
[2019-04-22] MEDS: HumaLOG 300 UNITS/3 ML VIAL SC PRN ×4 (05:44→21:17)
[2019-04-22] MEDS: Dextrose 5% in Water 1,000 ML IV SCH ×3 (05:45→23:48)
[2019-04-22 07:02] LABS: Actual Bicarbonate (HCO3a) 24.9 mEq/L (22-28); Base Excess (BEa) 1.6 mEq/L (-2.0 to +3.0); CO2 Tension 33.3 mmHg (35.0-45.0); Carboxyhemoglobin (COHb) 1.1 gm% (0.0-3.0); Hemoglobin (Hb) 7.6 g/dL (14.0-18.0); O2 Tension (PaO2) 117.2 mmHg (> 80.0); Potassium - ABG Lab 3.26 mmol/L (3.70-5.30); pH, Arterial 7.49 (7.35-7.45)
[2019-04-22 07:03] LABS: ALV-art Gradient 197.675 (0-20); Puncture Site RBA
--- NOTE | 2019-04-22 08:24 | PRG ---
DATE OF SERVICE: 04/21/2019 SUBJECTIVE: The patient is seen and examined, still on life support, noted with the following vital signs. OBJECTIVE: VITAL SIGNS: Blood pressure 109/63, pulse 68. HEENT: Remarkable for endotracheal tube in place. CARDIOVASCULAR: First and second heart sounds were heard. RESPIRATORY: Clear to auscultation. DIGESTIVE SYSTEM: Revealed a benign abdomen. EXTREMITIES: Showed minimal peripheral edema. LABORATORY INVESTIGATION: Showed a white count of 9000, hemoglobin 7.1 , platelet of 50,000. Chemistry showed a sodium down to 123, creatinine down to 2.53, and BUN of 93. IMPRESSION: 1. Acute tubular necrosis, nonoliguric, in the context of cardiac events. 2. Hyponatremia in the context of free water deficit, improved, status post free water repletion. 3. Anemia of multifactorial etiology including gastrointestinal bleed. PLAN: 1. We will continue with current renal supportive measures. 2. Blood transfusion on p.r.n. basis. 3. Further management to be dependent on the clinical course. 4. From the 22 of April, Dr. Boggs will be covering my patients. Job ID: [id number]
--- NOTE | 2019-04-22 09:08 | PRG ---
DATE OF SERVICE: 04/22/2019 SUBJECTIVE: Bear Henning remains in the ICU, intubated on the vent, sedated with Precedex and Ativan. He still remains very agitated, encephalopathic, unable to get any meaningful input from him. OBJECTIVE: VITAL SIGNS: Blood pressure 108/68, respiratory rate is 20, saturations are 100%, and pulse 80. His I's and O's have been ahead. CHEST: There is no wheezing or crackles. CARDIAC: Normal S1 and S2. No gallops. ABDOMEN: No masses. LABORATORY DATA: H and H are 7 and 21, white count 9000. PO2 117, pCO2 33, and pH 7.43. BUN and creatinine are 93 and 2.53 and glucose 356. IMAGING STUDIES: Chest x-ray shows improvement in right-sided infiltrate. IMPRESSION: Respiratory failure; probably anoxic injury; encephalopathy; renal failure; and cardiomyopathy, ejection fraction 20%. PLAN: Family has not decided about the code status. We are in the process of trying to get an input from Neurology. He is not weanable until the family makes a decision about his code status. probably going to need a trach in the next week or so. TIME SPENT: One-half hour of critical time. Job ID: [id number]
[2019-04-22] MEDS: Insulin Glargine 10 UNITS in Pre-Filled Syringe SC SCH (09:20)
[2019-04-22] MEDS: Lorazepam 2 MG/ML VIAL SLOW IVP PRN ×2 (09:20→12:26)
[2019-04-22] MEDS: risperiDONE 0.25 MG TAB PO SCH ×2 (09:20→21:09)
[2019-04-22] MEDS: Potassium Chloride 40 MEQ in Dextrose 5% in Water 1,000 ML IVPB SCH ×2 (09:21→21:56)
[2019-04-22] MEDS: Potassium Bicarbonate/Cit Ac 25 MEQ TAB PO SCH ×2 (09:21→21:09)
[2019-04-22] MEDS: Cefepime 0.5 GM, Admixture Fee 1 EACH in Sodium Chloride 0.9% 100 ML IVPB SCH ×2 (09:21→21:19)
--- NOTE | 2019-04-22 09:26 | PDOC.HOSPP ---
- Subjective Encounter Date: 04/22/19 Encounter Time: 09:25 Subjective: Mr. Henning was seen today in follow-up. He is intubated. He has been a bit agitated, but no significant change. - Objective Vital Signs & Weight: Vital Signs (12 hours) Temp Pulse Resp BP 04/22/19 08:00 20 04/22/19 07:24 69 04/22/19 07:00 100.1 F H 04/22/19 06:00 17 04/22/19 04:00 99.5 F 22 H 04/22/19 02:30 68 100/60 04/22/19 02:00 19 04/22/19 00:00 99.4 F 24 H 04/21/19 22:18 68 108/63 04/21/19 22:00 23 H Weight Admit Weight 179 lb 0.246 oz Weight 197 lb 1.492 oz Most Recent Monitor Data Heart Rate from ECG 77 NIBP 108/63 NIBP BP-Mean 78 Respiration from ECG 21 SpO2 99 I&O: 04/21/19 04/22/19 04/23/19 06:59 06:59 06:59 Intake Total 5653.1 5136.5 Output Total 1595 2235 200 Balance 4058.1 2901.5 -200 Result Diagrams: 04/22/19 03:36 04/22/19 03:36 Additional Labs: Accuchecks 04/22/19 04/21/19 04/21/19 03:44 22:03 16:37 POC Glucose 356 H 326 H 390 H 04/21/19 10:01 POC Glucose 343 H Hospitalist ROS - Medication Medications: Active Medications Generic Name Dose Route Start Last Admin Trade Name Freq PRN Reason Stop Dose Admin Epoetin Cortez-epbx 20,000 unit 04/19/19 18:00 04/19/19 20:34 Retacrit SC 20,000 unit Q7D OMAR Administration Hydrocortisone Sodium Succinate 25 mg 04/20/19 13:00 04/22/19 05:43 Solu-Cortef IVP 04/25/19 12:01 25 mg Q6HR OMAR Administration Fentanyl Citrate 2,000 mcg/ 100 mls @ 0 mls/hr 04/16/19 21:56 04/19/19 02:08 Sodium Chloride IV 05/16/19 21:56 100 mls INF OMAR Administration Protocol Per Protocol Pantoprazole Sodium 80 mg/ 100 mls @ 10 mls/hr 04/17/19 00:30 04/22/19 03:00 Miscellaneous Medication 1 IVP 100 mls each/ Sodium Chloride INF OMAR Administration Norepinephrine Bitartrate 16 250 mls @ 0 mls/hr 04/17/19 05:00 04/21/19 16:24 mg/ Dextrose/Water IVPB 250 mls INF OMAR Administration Protocol Titrate Cefepime HCl 0.5 gm/ 100 mls @ 0 mls/hr 04/18/19 09:00 04/21/19 21:07 Miscellaneous Medication 1 IVPB 100 mls each/ Sodium Chloride Q12HR OMAR Administration Dexmedetomidine HCl 400 mcg/ 100 mls @ 0 mls/hr 04/19/19 14:00 04/22/19 03:00 Sodium Chloride IVPB 100 mls INF OMAR Administration Protocol Per Protocol Dextrose/Water 1,000 mls @ 100 mls/hr 04/20/19 10:45 04/22/19 05:45 D5w IV Not Given .Q10H OMAR Potassium Chloride 40 meq/ 1,020 mls @ 75 mls/hr 04/21/19 15:30 04/21/19 16: 27 Dextrose/Water IVPB 1,020 mls INF OMAR Administration Insulin Human Lispro 0 units 04/17/19 13:18 04/22/19 05:44 Humalog SC 6 unit .MILD SLIDING SCALE PRN Administration MILD SLIDING SCALE Protocol Lorazepam 2 mg 04/17/19 04:13 04/21/19 20:38 Ativan SLOW IVP 05/17/19 04:13 2 mg Q1H PRN Administration Breakthrough agitation Morphine Sulfate 2 mg 04/17/19 04:13 04/22/19 04:27 Morphine SLOW IVP 05/17/19 04:13 2 mg Q1H PRN Administration BREAKTHROUGH PAIN/Agitation Propofol 1,000 mg 04/17/19 04:13 04/18/19 03:31 Diprivan IV 05/17/19 04:13 1,000 mg INF PRN Administration TO ACHIEVE GOAL RASS Protocol Risperidone 0.25 mg 04/20/19 09:00 04/21/19 21:07 Risperidone PO 0.25 mg BID OMAR Administration - Exam Eye: PERRL Heart: RRR, no murmur, no gallops, no rubs, normal peripheral pulses Respiratory: CTAB (except coarse breath sounds) Gastrointestinal: soft, non-tender, non-distended, normal bowel sounds, no palpable masses, no hepatomegaly Extremities: 2+ LE edema (+ edema in both upper and lower extremities) Hosp A/P (1) Acute blood loss anemia Code(s): D62 - ACUTE POSTHEMORRHAGIC ANEMIA Status: Acute (2) GI bleed Code(s): K92.2 - GASTROINTESTINAL HEMORRHAGE, UNSPECIFIED Status: Acute (3) Chronic systolic heart failure Code(s): I50.22 - CHRONIC SYSTOLIC (CONGESTIVE) HEART FAILURE Status: Acute (4) Diabetes mellitus type 2 in nonobese Code(s): E11.9 - TYPE 2 DIABETES MELLITUS WITHOUT COMPLICATIONS Status: Chronic (5) Hypertension Code(s): I10 - ESSENTIAL (PRIMARY) HYPERTENSION Status: Chronic (6) Acute kidney injury Code(s): N17.9 - ACUTE KIDNEY FAILURE, UNSPECIFIED Status: Acute - Plan * Cardiac arrest-patient remains intubated * Await EEG results- concern for anoxic brain injury * Acute Kidney injury- sight improvement- will continue to avoid nephrotoxins * Acute blood loss anemia- H&H has remained stable- continue Protonix, and transfuse as needed * Acute on chronic systolic heart failure- he will need AICD, and evaluation for ischemic heart disease once stable * DM- blood glucose is a bit elevated-( due to D5W)- continue Lantus and SSI * Hypernatremia-resolved
--- NOTE | 2019-04-22 09:48 | RAD ---
RADIOGRAPH CHEST 1 VIEW: 04/22/2019 4:36 a.m. HISTORY: A 68-year-old male in respiratory failure. COMPARISON: 04/20/2019 at 4:10 a.m. FINDINGS: No change in life support lines. No pneumothorax. Broad region of increased attenuation centered in t he right mid lung zone, extending to the right base, has become smaller in volume now. Opacification of medial base of left lower lobe is unchanged. No pneumothorax. IMPRESSION: 1. Interval contraction of the right sided infiltrate. 2. Left lower lobe opacification (atelectasis versus pneumonia) is unchanged. JN [] POS: CET
--- NOTE | 2019-04-22 10:13 | EEG ---
Referring Physician: CHET EEG # [id number] TEST TYPE: ROUTINE PORTABLE INPATIENT REPORT: AN EEG USING THE [employer]NATIONAL TEN-TWENTY SYSTEM OF ELECTRODE PLACEMENT WAS PERFORMED. The best waking background activity is 5 hertz medium amplitude theta frequency. The patient as given a paralytic before the test to reduce movement. The patient had no spontaneous eye movement. No epileptiform features were seen. Photic stimulation was unremarkable. IMPRESSION: THIS IS AN ABNORMAL STUDY FOR THE FINDINGS OF DIFFUSE SLOWING CONSISTENT WITH A DIFFUSE ENCEPHALOPATHIC PROCESS. NO EVIDENCE OF ONGOING SEIZURE ACTIVITY. Airplane Technician: MAI Supervisor [employer]: [email or web address] [email or web address]
--- NOTE | 2019-04-22 14:09 | PRG ---
DATE OF SERVICE: 04/22/2019 SUBJECTIVE: Mr. Henning's status overnight is not improved. His status is unchanged. He remains intubated, sedated. OBJECTIVE: VITAL SIGNS: Blood pressure 140/65, pulse 70, and respirations 20. LUNGS: Clear to auscultation. HEART: Regular rate and rhythm. ABDOMEN: Soft, nontender, and nondistended. EXTREMITIES: No edema. PERTINENT LABORATORY DATA: Hemoglobin 7.2. Creatinine 2.53, which is down from 2.8. IMPRESSION: 1. Cardiac arrest. 2. Respiratory failure. 3. Acute on chronic kidney disease. 4. Chronic anemia. RECOMMENDATIONS: At this point, Mr. Coles status remains unchanged. He is not able to be extubated. I spent some time with the family discussing long-term treatment options. I have discouraged that he is not improving significantly. They also states he has not been very ambulatory while at home. Based on current findings, we would therefore recommend a more conservative approach. We would certainly be concerned about contrast nephropathy, proceed with coronary angiography. I did state this with the family that if severe multivessel disease was noted, he would unlikely be an appropriate surgical kind of candidate. May consider ICD placement, but from an ischemic standpoint, I do not feel any further studies would change treatment plan. Otherwise, I have no further recommendations. Job ID: [id number]
--- NOTE | 2019-04-22 20:51 | PRG ---
DATE OF SERVICE: 04/22/2019 SERVICE: Nephrology. SUBJECTIVE: A 68-year-old male, admitted to the hospital after gel-is-csmuizvk cardiac arrest. Nephrology is following patient for acute on chronic renal failure. The patient is still intubated. OBJECTIVE: VITAL SIGNS: Temperature 100.4, pulse 90, respiratory rate 18, SpO2 100% on 40% FiO2. Blood pressure is 132/72. GENERAL: Elderly male, in no obvious distress. HEENT: ET and OG tubes are in place. CARDIOVASCULAR: Regular rhythm and rate. RESPIRATORY: Fair air entry bilateral with transmitted breath sounds noted. GI: Obese, soft, nontender, nondistended. UROGENITAL: Brower catheter is in place draining urine. EXTREMITIES: Generalized edema of both upper and lower extremities noted. QUILT MAKER: The patient is sedated. He however moves head with stimulation. DIAGNOSTIC DATA: CBC showed WBC count of 9.1, hemoglobin of 7.2, MCV of 92.9, platelets of 114. BMP showed sodium 143, potassium 3.7, chloride 108, CO2 of 27, BUN 93, creatinine 2.53, glucose 365, and calcium 7.0. ASSESSMENT: 1. Acute kidney injury. 2. Chronic kidney disease stage 3-4. 3. Status post gwi-pk-ewigernj cardiac arrest. 4. Chronic systolic heart failure with reduced ejection fraction. 5. Diabetes mellitus. 6. Anasarca. 7. Hypernatremia, resolved with free water flushes. 8. Anemia: Multifactorial: CKD, acute illness and possible GI bleeding PLAN: 1. Continue supportive care as renal function is slowly improving. 2. We will continue tube feeding with free water flushes given hypernatremia. 3. We will monitor electrolytes and replete as needed. 4. Further treatment to follow depending on hospital course. Other treatment as per primary attending and sales representative church furniture. 5. Get iron chemistry Job ID: [id number] [facility]
[2019-04-22] MEDS: Propofol 1,000 MG/100 ML VIAL IV PRN (21:09)
[2019-04-23] MEDS: HumaLOG 300 UNITS/3 ML VIAL SC PRN ×4 (03:48→22:29)
[2019-04-23 04:09] LABS: #Lymphocytes 0.4 thou/uL (1.20-3.40); #Monocytes 0.7 thou/uL (0.11-0.59); %Eosinophils 0.1 % (0.0-10.0); %Lymphocytes 4.1 % (21.0-51.0); %Monocytes 6.5 % (0.0-10.0); %Neutrophils 89.3 % (42.0-75.0); Hemoglobin 6.7 g/dL (14.0-18.0); Mean Corpuscular Hemoglobin 30.8 pg (27.0-31.0); Mean Corpuscular Volume 93.2 fL (78.0-98.0); Mean Platelet Volume 11.1 fL (7.4-10.4); Platelet Count 107 thou/uL (130-400); RBC Distribution Width 15.5 % (11.5-14.5); Red Blood Cell (RBC) Count 2.16 mill/uL (4.70-6.10)
[2019-04-23 04:49] LABS: Anion Gap 9 mmol/L (10-20); BUN (Urea Nitrogen) 85 mg/dL (8.4-25.7); Calc. Creatinine Clearance 39 mL/min (70-130); Calcium 7.1 mg/dL (7.8-10.44); Carbon Dioxide 29 mmol/L (23-31); Chloride 108 mmol/L (98-107); Estimated GFR-MDRD 28; Glucose 406 mg/dL (80-115); Iron Binding Capacity, Total 194 mcg/dL (261-462); Potassium 3.4 mmol/L (3.5-5.1); Sodium 143 mmol/L (136-145)
[2019-04-23 04:52] LABS: Iron 22 ug/dL (65-175); Iron Binding Capacity, Total 191 mcg/dL (261-462)
[2019-04-23] MEDS: Hydrocortisone Sod Succ/PF 100 mg/2 ml Vial IVP SCH ×4 (05:47→23:21)
[2019-04-23] MEDS: Propofol 1,000 MG/100 ML VIAL IV PRN ×2 (06:17→22:10)
--- NOTE | 2019-04-23 07:35 | RAD ---
EXAM: Portable chest PROVIDED CLINICAL HISTORY: Respiratory insufficiency COMPARISON: 04/22/2019 FINDINGS: Significant interval change with respect to the prior examination is not apparent. IMPRESSION: As above.
[2019-04-23 08:22] LABS: Actual Bicarbonate (HCO3a) 26.2 mEq/L (22-28); Base Excess (BEa) 2.2 mEq/L (-2.0 to +3.0); CO2 Tension 38.1 mmHg (35.0-45.0); Calcium, Ionized 1.04 mmol/L (1.12-1.30); Carboxyhemoglobin (COHb) 1.4 gm% (0.0-3.0); Hemoglobin (Hb) 7.3 g/dL (14.0-18.0); O2 Tension (PaO2) 145.1 mmHg (> 80.0); Potassium - ABG Lab 3.31 mmol/L (3.70-5.30); pH, Arterial 7.46 (7.35-7.45)
[2019-04-23 08:26] LABS: ALV-art Gradient 92.475 (0-20); Puncture Site RR
[2019-04-23] MEDS: Insulin Glargine 10 UNITS in Pre-Filled Syringe SC SCH (09:58)
[2019-04-23] MEDS: Cefepime 0.5 GM, Admixture Fee 1 EACH in Sodium Chloride 0.9% 100 ML IVPB SCH ×2 (09:58→21:52)
[2019-04-23] MEDS: risperiDONE 0.25 MG TAB PO SCH ×2 (09:59→20:30)
[2019-04-23] MEDS: Potassium Bicarbonate/Cit Ac 25 MEQ TAB PO SCH ×2 (10:01→21:42)
--- NOTE | 2019-04-23 12:12 | PRG ---
DATE OF SERVICE: 04/23/2019 SUBJECTIVE: Bear Henning is on propofol. He opens his eyes and shakes his head. He moves all his extremities. He does not make an eye contact or following commands. He does not localize to pain. OBJECTIVE: VITAL SIGNS: Blood pressure 119/72, heart rate is 90, respiratory rate is in the 30s. Intake and output, positive 1654. LUNGS: Remarkable for coarse equal breath sounds. HEART: Regular rate and rhythm. ABDOMEN: Soft and nontender. EXTREMITIES: Without asymmetry or edema. LABORATORY DATA: White count 10.0, hemoglobin 6.7, and platelets 107,000. 2 units of packed cells were ordered today. Sodium 143, potassium 3.4, chloride 108, bicarb 29, BUN 85, and creatinine 2.34. Liver enzymes are elevated earlier in this hospitalization. IMPRESSION: 1. Respiratory failure after an arrest. 2. Underlying severe systolic cardiomyopathy. 3. Chronic kidney disease. 4. Probably, chronic liver disease secondary to alcoholism. His family says he is an extremely heavy drinker. I also say he is medically noncompliant. 5. They do not feel he would want to continue like this. They do not want him to on or right before [place]. Reasonable compromise for now is to make him a do not resuscitate patient. They are agreeable to this. Both the and two daughters confirm this. Apparently, there is a brother who does not want anyone giving me up and the brother is also not here at the bedside very much. 6. Family is comfortable with do not resuscitate status. Regards to his encephalopathy post-arrest, we might start some Haldol to see if this helps. I will wean him off propofol. Apparently, high-dose Precedex did not work at all. CRITICAL CARE TIME: 30 minutes. Job ID: [id number]
[2019-04-23] MEDS: Pantoprazole 80 MG, Admixture Fee 1 EACH in Sodium Chloride 0.9% 100 ML IVP SCH ×2 (12:57→21:42)
[2019-04-23] MEDS: Potassium Chloride 40 MEQ in Dextrose 5% in Water 1,000 ML IVPB SCH (12:57)
[2019-04-23] MEDS: Haloperidol Lactate 5 MG/ML VIAL IM SCH ×4 (12:59→23:27)
--- NOTE | 2019-04-23 15:46 | PDOC.HOSPP ---
- Subjective Encounter Date: 04/23/19 Encounter Time: 12:45 Subjective: is a bit restless, no purposefull movement or interaction with examiner and step daughter at bedside is on vent - Objective Vital Signs & Weight: Vital Signs (12 hours) Temp Pulse Pulse Resp BP BP Pulse Ox 04/23/19 15:32 88 107/57 L 04/23/19 14:25 90 114/61 04/23/19 14:19 98.4 F 88 18 124/72 100 04/23/19 14:11 98.6 F 89 24 H 114/61 100 04/23/19 14:10 98.6 F 92 26 H 107/58 L 100 04/23/19 14:00 21 H 04/23/19 13:20 98.3 F 75 23 H 103/57 L 100 04/23/19 12:00 24 H 04/23/19 11:27 90 119/72 04/23/19 11:00 98.2 F 04/23/19 10:00 26 H 04/23/19 08:01 93 114/65 04/23/19 08:00 19 04/23/19 07:47 100 04/23/19 07:00 98.6 F 04/23/19 06:00 18 04/23/19 04:00 98.5 F 18 Weight Admit Weight 179 lb 0.246 oz Weight 204 lb 12.951 oz Most Recent Monitor Data Heart Rate from ECG 98 NIBP 125/67 NIBP BP-Mean 86 Respiration from ECG 14 SpO2 100 I&O: 04/22/19 04/23/19 04/24/19 06:59 06:59 06:59 Intake Total 5136.5 3969.5 350 Output Total 2235 2315 815 Balance 2901.5 1654.5 -465 Result Diagrams: 04/23/19 03:40 04/23/19 03:40 Additional Labs: Accuchecks 04/23/19 04/23/19 04/22/19 09:59 03:47 21:18 POC Glucose 388 H 439 H 322 H 04/22/19 17:02 POC Glucose 307 H Hospitalist ROS - Medication Medications: Active Medications Generic Name Dose Route Start Last Admin Trade Name Freq PRN Reason Stop Dose Admin Epoetin Cortez-epbx 20,000 unit 04/19/19 18:00 04/19/19 20:34 Retacrit SC 20,000 unit Q7D OMAR Administration Haloperidol Lactate 5 mg 04/23/19 11:45 04/23/19 12:59 Haldol IM 5 mg Q4H OMAR Administration Hydrocortisone Sodium Succinate 25 mg 04/20/19 13:00 04/23/19 12:58 Solu-Cortef IVP 04/25/19 12:01 25 mg Q6HR OMAR Administration Fentanyl Citrate 2,000 mcg/ 100 mls @ 0 mls/hr 04/16/19 21:56 04/19/19 02:08 Sodium Chloride IV 05/16/19 21:56 100 mls INF OMAR Administration Protocol Per Protocol Pantoprazole Sodium 80 mg/ 100 mls @ 10 mls/hr 04/17/19 00:30 04/23/19 12:57 Miscellaneous Medication 1 IVP 100 mls each/ Sodium Chloride INF OMAR Administration Norepinephrine Bitartrate 16 250 mls @ 0 mls/hr 04/17/19 05:00 04/21/19 16:24 mg/ Dextrose/Water IVPB 250 mls INF OMAR Administration Protocol Titrate Cefepime HCl 0.5 gm/ 100 mls @ 0 mls/hr 04/18/19 09:00 04/23/19 09:58 Miscellaneous Medication 1 IVPB 100 mls each/ Sodium Chloride Q12HR OMAR Administration Insulin Glargine 10 units/ 0.1 mls @ 0 mls/hr 04/22/19 09:00 04/23/19 09:58 Miscellaneous Medication SC 0.1 mls QAM OMAR Administration Potassium Chloride 40 meq/ 1,020 mls @ 75 mls/hr 04/21/19 15:30 04/23/19 12: 57 Dextrose/Water IVPB 1,020 mls INF OMAR Administration Insulin Human Lispro 0 units 04/17/19 13:18 04/23/19 10:02 Humalog SC 6 unit .MILD SLIDING SCALE PRN Administration MILD SLIDING SCALE Protocol Lorazepam 2 mg 04/17/19 04:13 04/22/19 12:26 Ativan SLOW IVP 05/17/19 04:13 2 mg Q1H PRN Administration Breakthrough agitation Morphine Sulfate 2 mg 04/17/19 04:13 04/22/19 04:27 Morphine SLOW IVP 05/17/19 04:13 2 mg Q1H PRN Administration BREAKTHROUGH PAIN/Agitation Potassium Bicarbonate/Citric Acid 25 meq 04/22/19 09:00 04/23/19 10:01 K-Vescent PO 04/23/19 21:01 25 meq BID OMAR Administration Propofol 1,000 mg 04/17/19 04:13 04/23/19 06:17 Diprivan IV 05/17/19 04:13 1,000 mg INF PRN Administration TO ACHIEVE GOAL RASS Protocol Risperidone 0.25 mg 04/20/19 09:00 04/23/19 09:59 Risperidone PO 0.25 mg BID OMAR Administration - Exam General Appearance: ill appearing Eye: anicteric sclera ENT: no oropharyngeal lesions, dry oral mucosa Neck: supple, no JVD Heart: RRR, no murmur Respiratory: no wheezes, no rales, rhonchi Gastrointestinal: soft, non-tender, normal bowel sounds Extremities: 2+ LE edema Neurological: no focal deficits Hosp A/P (1) s/p cardiac arrest Status: Acute (2) Acute respiratory failure with hypoxia Code(s): J96.01 - ACUTE RESPIRATORY FAILURE WITH HYPOXIA Status: Acute (3) Cardiogenic shock Code(s): R57.0 - CARDIOGENIC SHOCK Status: Suspected (4) CHF exacerbation Code(s): I50.9 - HEART FAILURE, UNSPECIFIED Status: Acute Qualifiers: Heart failure type: systolic Qualified Code(s): I50.23 - Acute on chronic systolic (congestive) heart failure (5) Acute metabolic encephalopathy Code(s): G93.41 - METABOLIC ENCEPHALOPATHY Status: Acute (6) Anemia Code(s): D64.9 - ANEMIA, UNSPECIFIED Status: Acute Qualifiers: Anemia type: unspecified type Qualified Code(s): D64.9 - Anemia, unspecified (7) Anasarca Code(s): R60.1 - GENERALIZED EDEMA Status: Acute (8) Acute kidney injury Code(s): N17.9 - ACUTE KIDNEY FAILURE, UNSPECIFIED Status: Acute (9) Chronic systolic heart failure Code(s): I50.22 - CHRONIC SYSTOLIC (CONGESTIVE) HEART FAILURE Status: Chronic - Plan ef of 20% on levophed, propofol, cefepime, solucortef, lantus, risperdal will be recieving his 5th prbc this admission today, unclear source of loss, ? upper GI GI has evaluated him early into his admission, no endoscopy was done due to fragile hemodynamic status initally suspected anoxic brain injury due to cpr d/w at bedside, and I have informed her that a repeat cpr would be futile in view of multiple comorbid issues and current poor condition wants to see if he will come out of vent by anne if not will go for withdrawal of care. She does not want trach or peg done on him, is aware its day 7 on ET now poor prognosis
[2019-04-23] MEDS ORDERED: Furosemide 40 MG/4 ML VIAL SLOW IVP SCH (18:00)
[2019-04-23] MEDS: Albumin 25% 25 GM/100 ML BOT IVPB SCH ×2 (18:16→23:21)
--- NOTE | 2019-04-23 18:16 | PRG ---
DATE OF SERVICE: 04/23/2019 SERVICE: Nephrology. SUBJECTIVE: A 68-year-old male admitted after zur-gr-lllivukp cardiac arrest. Nephrology is following the patient for acute on chronic renal failure. The patient is still intubated and mechanically ventilated. OBJECTIVE: VITAL SIGNS: Temperature 98.5, pulse 96, respiratory rate 19, SpO2 of 100% on FiO2 40%, blood pressure is 100/62. GENERAL: Male patient who is unresponsive. Currently sedated. HEENT: Normocephalic, atraumatic. ET tube and OG tube are in place. CARDIOVASCULAR: Regular rhythm and rate. RESPIRATORY: Fair air entry bilaterally with few bibasilar transmitted sounds or crackles. No rhonchi or respiratory distress appreciated. GI: Obese, soft, nontender, nondistended with normal bowel sounds. UROGENITAL: Brower catheter is in place draining urine. EXTREMITIES: Bqzzcesd-vn-pnwuoa edema of all the extremities noted. No erythema appreciated. MANAGER GAMING: The patient is sedated. Moves with stimulation. DIAGNOSTIC DATA: CBC today showed WBC count of 10, hemoglobin of 6.7, MCV of 93.2, platelet of 107. Arterial blood gas this morning showed a pH of 7.46, pCO2 of 38.1, pO2 of 145. Ionized calcium is 1.04. BMP showed sodium 143, potassium 3.4, chloride 108, CO2 of 29, BUN 85, creatinine 2.34, glucose 406, calcium 7.1. Iron chemistry showed TIBC 194, serum iron 22 with saturation of 12% and ferritin of 352. Chest x-ray showed no significant change from prior. Increasing vascular markings noted with no obvious edema. ASSESSMENT: 1. Acute kidney injury: Due to prerenal etiology related to cardiac arrest. ATN remains a concern. 2. Chronic kidney disease, stage 3-4. 3. Status post snf-sy-hnrhbviv cardiac arrest. 4. Hypoalbuminemia. 5. Anasarca. 6. Diabetes mellitus. 7. Hyponatremia, resolved. 8. Chronic systolic heart failure with reduced ejection fraction. PLAN: 1. We will start gentle diuretic given anasarca. We will however provide albumin as the patient is hypoalbuminemic. 2. Other supportive care as per primary attending and excelsior picker. 3. We will recheck renal function panel in the morning. Job ID: [id number]
[2019-04-24] MEDS: Potassium Chloride 40 MEQ in Dextrose 5% in Water 1,000 ML IVPB SCH (02:58)
[2019-04-24] MEDS: Haloperidol Lactate 5 MG/ML VIAL IM SCH ×6 (02:58→23:19)
[2019-04-24] MEDS: HumaLOG 300 UNITS/3 ML VIAL SC PRN ×4 (04:26→22:23)
[2019-04-24 04:31] LABS: Anion Gap 11 mmol/L (10-20); BUN (Urea Nitrogen) 81 mg/dL (8.4-25.7); Calc. Creatinine Clearance 47 mL/min (70-130); Calcium 7.3 mg/dL (7.8-10.44); Carbon Dioxide 29 mmol/L (23-31); Chloride 109 mmol/L (98-107); Estimated GFR-MDRD 33; Glucose 298 mg/dL (80-115); Potassium 3.7 mmol/L (3.5-5.1); Sodium 145 mmol/L (136-145)
[2019-04-24] MEDS: Hydrocortisone Sod Succ/PF 100 mg/2 ml Vial IVP SCH ×4 (05:33→23:28)
[2019-04-24] MEDS: Albumin 25% 25 GM/100 ML BOT IVPB SCH ×4 (05:33→21:37)
[2019-04-24 05:34] LABS: #Lymphocytes 0.3 thou/uL (1.20-3.40); #Monocytes 0.7 thou/uL (0.11-0.59); #Neutrophils 8.3 thou/uL (1.40-6.50); %Eosinophils 0.1 % (0.0-10.0); %Lymphocytes 3.2 % (21.0-51.0); %Monocytes 7.8 % (0.0-10.0); Hemoglobin 6.5 g/dL (14.0-18.0); Mean Corpuscular HGB CONC 33.5 g/dL (32.0-36.0); Mean Corpuscular Hemoglobin 30.9 pg (27.0-31.0); Mean Corpuscular Volume 92.2 fL (78.0-98.0); Mean Platelet Volume 11.1 fL (7.4-10.4); Platelet Count 101 thou/uL (130-400); RBC Distribution Width 15.9 % (11.5-14.5); Red Blood Cell (RBC) Count 2.11 mill/uL (4.70-6.10); White Blood Cell (WBC) Count 9.3 thou/uL (4.8-10.8)
[2019-04-24] MEDS: Propofol 1,000 MG/100 ML VIAL IV PRN (06:14)
[2019-04-24] MEDS: Pantoprazole 80 MG, Admixture Fee 1 EACH in Sodium Chloride 0.9% 100 ML IVP SCH (07:19)
--- NOTE | 2019-04-24 07:31 | RAD ---
EXAM: Portable chest PROVIDED CLINICAL HISTORY: Respiratory insufficiency COMPARISON: 04/23/2019 FINDINGS: Significant interval change with respect to the prior examination is not apparent. IMPRESSION: As above.
[2019-04-24] MEDS: Cefepime 0.5 GM, Admixture Fee 1 EACH in Sodium Chloride 0.9% 100 ML IVPB SCH ×2 (08:50→21:36)
[2019-04-24] MEDS: Insulin Glargine 10 UNITS in Pre-Filled Syringe SC SCH (08:50)
[2019-04-24] MEDS: risperiDONE 0.25 MG TAB PO SCH (08:50)
[2019-04-24] MEDS ORDERED: Furosemide 40 MG/4 ML VIAL SLOW IVP SCH (09:00)
[2019-04-24] MEDS: Lorazepam 2 MG/ML VIAL SLOW IVP SCH ×2 (12:21→23:35)
--- NOTE | 2019-04-24 12:31 | PRG ---
DATE OF SERVICE: 04/24/2019 SUBJECTIVE: Mr. Henning still just shakes his head back and forth. We are stopping his propofol and continuing with Haldol. He is in atrial fibrillation with a rate of 119. OBJECTIVE: VITAL SIGNS: He is afebrile. Blood pressure 105/61, respiratory rates in the 20s. His blood pressure dropped to 87/63 at 11 o'clock. LUNGS: Clear. HEART: Irregular rhythm. S1 and S2 are normal. ABDOMEN: Soft and nontender. EXTREMITIES: Without clubbing, cyanosis, or edema. NEURO: Nonfocal. LABORATORY DATA: Chest x-ray shows diffuse infiltrates. White count 9.3, hemoglobin 6.5, and platelets 101,000. Sodium 145, potassium 3.7, chloride 109, bicarb 29, BUN 81, and creatinine 2.0. IMPRESSION: 1. Respiratory failure. 2. Status post sqr-za-rbkcvyeu arrest. 3. Cirrhosis. 4. Chronic kidney disease. 5. Underlying cardiomyopathy. 6. Probable cirrhosis with coagulopathy. He most likely has blood loss anemia, but this needs to be supported with transfusion. He is not externally bleeding at this point in time. We will try to minimize sedation and treat him with Haldol. We will stop the Risperdal. We will add in lorazepam 0.5 mg every 12 hours to hopefully prevent dystonic reactions, although they are unlikely to occur. Family wants to continue to watch him until [place], and if he is awaken up more by [place], then they want withdrawal of care. He is not acutely bleeding clinically, so I would support him with transfusions right now and correct his coagulopathy if he does show signs of bleeding. I would support him conservatively for now. I do not feel any type of endoscopic evaluation is appropriate at this point in time. Job ID: [id number]
[2019-04-24 12:38] LABS: INR-International Normal Ratio 1.4; Prothrombin Time 16.7 SEC (12.0-14.7)
[2019-04-24 12:55] LABS: ALT (SGPT) 32 U/L (8-55); AST (SGOT) 20 U/L (5-34); Alkaline Phosphatase 50 U/L (40-110); Bilirubin, Direct 0.8 mg/dL (0.1-0.3); Protein, Total 4.2 g/dL (5.8-8.1)
[2019-04-24] MEDS ORDERED: Vecuronium 10 MG VIAL IV SCH (14:00)
--- NOTE | 2019-04-24 14:04 | PDOC.HOSPP ---
- Subjective Encounter Date: 04/24/19 Encounter Time: 11:45 Subjective: not oriented, does not follow verbal stimuli, on vent trying to chew ET (no teeth) - Objective Vital Signs & Weight: Vital Signs (12 hours) Temp Pulse Resp BP Pulse Ox 04/24/19 11:00 98.4 F 04/24/19 10:36 119 H 105/61 04/24/19 10:00 24 H 04/24/19 08:00 26 H 04/24/19 07:46 100 04/24/19 07:28 115 H 94/63 04/24/19 07:00 98.3 F 04/24/19 06:00 22 H 04/24/19 04:00 98.5 F 22 H 04/24/19 03:22 114 H Weight Admit Weight 179 lb 0.246 oz Weight 199 lb 15.348 oz Most Recent Monitor Data Heart Rate from ECG 119 NIBP 87/63 NIBP BP-Mean 71 Respiration from ECG 19 SpO2 100 I&O: 04/23/19 04/24/19 04/25/19 06:59 06:59 06:59 Intake Total 3969.5 2993 650 Output Total 2315 3420 555 Balance 1654.5 -427 95 Result Diagrams: 04/24/19 03:30 04/24/19 03:30 Additional Labs: Accuchecks 04/24/19 04/24/19 04/23/19 10:20 04:29 22:32 POC Glucose 302 H 331 H 335 H 04/23/19 16:39 POC Glucose 362 H Hospitalist ROS - Medication Medications: Active Medications Generic Name Dose Route Start Last Admin Trade Name Micheal PRN Reason Stop Dose Admin Albumin Human 25 gm 04/24/19 09:00 04/24/19 08:50 Albumin 25% IVPB 04/25/19 03:01 25 gm 0300,0900,1500,2100 OMAR Administration Epoetin Cortez-epbx 20,000 unit 04/19/19 18:00 04/19/19 20:34 Retacrit SC 20,000 unit Q7D OMAR Administration Haloperidol Lactate 5 mg 04/23/19 11:45 04/24/19 12:21 Haldol IM 5 mg Q4H OMAR Administration Hydrocortisone Sodium Succinate 25 mg 04/20/19 13:00 04/24/19 12:24 Solu-Cortef IVP 04/25/19 12:01 25 mg Q6HR OMAR Administration Fentanyl Citrate 2,000 mcg/ 100 mls @ 0 mls/hr 04/16/19 21:56 04/19/19 02:08 Sodium Chloride IV 05/16/19 21:56 100 mls INF OMAR Administration Protocol Per Protocol Pantoprazole Sodium 80 mg/ 100 mls @ 10 mls/hr 04/17/19 00:30 04/24/19 07:19 Miscellaneous Medication 1 IVP 100 mls each/ Sodium Chloride INF OMAR Administration Norepinephrine Bitartrate 16 250 mls @ 0 mls/hr 04/17/19 05:00 04/21/19 16:24 mg/ Dextrose/Water IVPB 250 mls INF OMAR Administration Protocol Titrate Cefepime HCl 0.5 gm/ 100 mls @ 0 mls/hr 04/18/19 09:00 04/24/19 08:50 Miscellaneous Medication 1 IVPB 100 mls each/ Sodium Chloride Q12HR OMAR Administration Insulin Glargine 10 units/ 0.1 mls @ 0 mls/hr 04/22/19 09:00 04/24/19 08:50 Miscellaneous Medication SC 0.1 mls QAM OMAR Administration Potassium Chloride 40 meq/ 1,020 mls @ 75 mls/hr 04/21/19 15:30 04/24/19 02: 58 Dextrose/Water IVPB 1,020 mls INF OMAR Administration Insulin Human Lispro 0 units 04/17/19 13:18 04/24/19 10:23 Humalog SC 5 unit .MILD SLIDING SCALE PRN Administration MILD SLIDING SCALE Protocol Lorazepam 2 mg 04/17/19 04:13 04/22/19 12:26 Ativan SLOW IVP 05/17/19 04:13 2 mg Q1H PRN Administration Breakthrough agitation Lorazepam 0.5 mg 04/24/19 12:00 04/24/19 12:21 Ativan SLOW IVP 0.5 mg Q12H OMAR Administration Morphine Sulfate 2 mg 04/17/19 04:13 04/22/19 04:27 Morphine SLOW IVP 05/17/19 04:13 2 mg Q1H PRN Administration BREAKTHROUGH PAIN/Agitation Propofol 1,000 mg 04/17/19 04:13 04/24/19 06:14 Diprivan IV 05/17/19 04:13 1,000 mg INF PRN Administration TO ACHIEVE GOAL RASS Protocol - Exam General Appearance: ill appearing Eye: PERRL, anicteric sclera ENT: dry oral mucosa Neck: supple, no JVD Heart: RRR, no murmur Respiratory: no wheezes, no rales Gastrointestinal: soft, non-tender, normal bowel sounds Extremities: no cyanosis, 2+ LE edema Neurological - other findings: no purposefull movement seen in extremities, has upgoing babinski b/l Hosp A/P (1) s/p cardiac arrest Status: Acute (2) Acute respiratory failure with hypoxia Code(s): J96.01 - ACUTE RESPIRATORY FAILURE WITH HYPOXIA Status: Acute (3) Cardiogenic shock Code(s): R57.0 - CARDIOGENIC SHOCK Status: Acute (4) CHF exacerbation Code(s): I50.9 - HEART FAILURE, UNSPECIFIED Status: Acute Qualifiers: Heart failure type: systolic Qualified Code(s): I50.23 - Acute on chronic systolic (congestive) heart failure (5) Acute metabolic encephalopathy Code(s): G93.41 - METABOLIC ENCEPHALOPATHY Status: Acute (6) Anemia Code(s): D64.9 - ANEMIA, UNSPECIFIED Status: Acute Qualifiers: Anemia type: unspecified type Qualified Code(s): D64.9 - Anemia, unspecified (7) Anasarca Code(s): R60.1 - GENERALIZED EDEMA Status: Acute (8) Acute kidney injury Code(s): N17.9 - ACUTE KIDNEY FAILURE, UNSPECIFIED Status: Acute (9) Chronic systolic heart failure Code(s): I50.22 - CHRONIC SYSTOLIC (CONGESTIVE) HEART FAILURE Status: Chronic (10) Acute blood loss anemia Code(s): D62 - ACUTE POSTHEMORRHAGIC ANEMIA Status: Acute - Plan ef of 20% on levophed, propofol, cefepime, solucortef, lantus, risperdal will be recieving his 6th and 7th prbc unit this admission today, unclear source of loss, ?likely upper GI. GI has evaluated him early into his admission, no endoscopy was done due to fragile hemodynamic status initally suspected anoxic brain injury due to cpr d/w at bedside, and I have informed her that a repeat cpr would be futile in view of multiple comorbid issues and current poor condition, is DNAR. wants to see if he will come out of vent by anne if not will go for withdrawal of care. She does not want trach or peg done on him, is aware of prolonged ET complications. poor prognosis D/w , is too unstable to have egd and given likely scenario for withdrawal of care post anne. Hopefully he will stop requiring transfusions prior to that. Appreciate help from all consults
[2019-04-24] MEDS: Norepinephrine 16 MG in Dextrose 5% in Water 234 ML IVPB SCH (14:37)
[2019-04-24] MEDS ORDERED: EPINEPHRINE IN SOD CHLOR,ISO 1 MG/10 ML SYRINGE IV ONE ×2 (16:03→16:14)
[2019-04-24] MEDS: Multivitamins, Adult 10 ML, Folic Acid 1 MG, Thiamine HCl 100 MG in Dextrose 5 %-0.45 %... IV SCH (18:00)
[2019-04-24 18:42] LABS: Hemoglobin 8.3 g/dL (14.0-18.0)
--- NOTE | 2019-04-24 19:51 | PRG ---
DATE OF SERVICE: 04/24/2019 SERVICE: Nephrology. SUBJECTIVE: A 68-year-old male admitted after an out of hospital cardiac arrest, being followed up by Day Habilitation Supervisor for acute renal failure. The patient is still intubated and mechanically ventilated. Hemoglobin dropped further and patient now has hypotension as well as tachycardia. OBJECTIVE: VITAL SIGNS: Temperature 98.3, pulse 115, respiratory rate 26, SpO2 100 on 40% FiO2. Blood pressure is 94/63. GENERAL: Elderly male, who is restless. HEENT: Normocephalic, atraumatic. ET and OG tubes are in place. NECK: Supple with no JVD. CARDIOVASCULAR: Regular rhythm, but tachycardic. RESPIRATORY: Fair air entry bilaterally. Transmitted breath sounds. The patient is mechanically ventilated. GI: Obese, soft, nontender, nondistended with normal bowel sounds. UROGENITAL: Brower catheter is in place draining clear urine. EXTREMITIES: Moderate edema of all the extremities noted. LITHOGRAPHIC PHOTOGRAPHER: The patient is unresponsive. Moves head side to side, but makes no eye contact or response to stimulation. The patient does not regard or track. DIAGNOSTIC DATA: CBC showed WBC count of 9.3, hemoglobin of 6.5, MCV of 92.2, platelets of 101. Coagulation panel showed PT 16.7, INR 1.4. BMP showed sodium 145, potassium 3.7, chloride 109, CO2 of 29, BUN 81, creatinine 2.01, glucose 298, calcium 7.3. LFT showed total bilirubin 1.0, direct was 0.8, AST 20, ALT 32, alkaline phosphatase 50, total protein 4.2, albumin 3.0. Chest x-ray showed no significant interval change compared to previous studies. ASSESSMENT: 1. Acute kidney injury: Due to prerenal etiology related to cardiac arrest with possible contribution from acute tubular necrosis. Creatinine has been trending downwards with optimization of hemodynamics. The patient continued to make urine. 2. Chronic kidney disease, stage 3. 3. Acute blood loss anemia due to gastrointestinal bleeding. 4. Acute gastrointestinal bleeding: The patient continued to have black tarry stool associated with acute drop in hemoglobin. 5. Hypoalbuminemia. 6. Anasarca due to hypoalbuminemia and chronic kidney disease.. 7. Diabetes mellitus with hyperglycemia. 8. Hypernatremia. 9. Chronic systolic heart failure with reduced ejection fraction. 10. Hypotension. PLAN: 1. We will discontinue diuretic therapy given dropped blood pressure due to GI bleeding. 2. We will give albumin 25 g q.6 to improve BP and expand intravascular space. 3. Blood transfusion as per bereavement program coordinator. 4. GI following for possible endoscopic evaluation. 5. We will recheck renal function test in the morning. 6. When hemodynamics improve, we will restart diuretics. Job ID: [id number]
--- NOTE | 2019-04-24 21:21 | OP ---
DATE OF PROCEDURE: 04/24/2019 PROCEDURE PERFORMED: Esophagogastroduodenoscopy with control of hemorrhage. PREPROCEDURE DIAGNOSES: 1. Gastrointestinal bleeding. 2. Anoxic brain injury. 3. Cardiomyopathy. 4. Alcoholism. 5. Ongoing transfusion required despite proton pump inhibitor therapy. POSTPROCEDURE DIAGNOSES: 1. Normal esophagus. 2. Normal stomach. 3. Large duodenal ulcer, white based with 2 x 1 cm shallow. No visible vessels. Posterior wall of the duodenal bulb nonbleeding. 4. Scattered ulcerations throughout the second and third portions of the duodenum with two ulcers with visible vessels actively spurting, one just distal to the ampulla and one just proximal. These were treated with epinephrine 1:10,000 15 mL to control the bleeding. They were both then ablated with a 10-Polish heater probe and a larger vessel which was still present, was ablated with a Hemoclip .. 5. A smaller ulcer was noted in the floor of the duodenal bulb, again, white based and nonbleeding. RECOMMENDATIONS: 1. Continue IV Protonix drip. 2. Continue n.p.o. for 24 hours, then resume tube feeds. 3. Banana bag daily. ANESTHESIA: General endotracheal anesthesia. DESCRIPTION OF PROCEDURE: The patient was already intubated. He was paralyzed by the ICU staff for the procedure. Once he was sedated and a bite block was placed inside the orifice, the endoscope was advanced to the esophagus, which was normal, into the stomach, which was normal on forward and retroflexed views. The duodenum was entered and there was blood noted. We used irrigation about 1L to clear the blood. There was a visible vessel squirting in a pool of blood just distal to the ampulla. There was clear bile coming from the ampulla. Epinephrine 1:10,000 10 mL was used to control bleeding at this site and then it was cauterized with a 10-Polish heater probe. Its anterior position made it difficult to cauterize, but eventually we could cauterize the vessel. Ultimately, two clips were placed over this site to rebolster it to help prevent further bleeding. Scattered ulcers then were noted. Once it was cleaned up all throughout the 2nd 3rd part of the duodenum, in the second portion of the duodenum, just proximal to the ampulla another area of actively red pooling blood and pulsation was noted. This was injected with 1:10,000 epinephrine 5 mL to control bleeding and then a visible vessel was seen which was cauterized with 10-Polish heater probe and good ablation was achieved. The area was observed for another 15-20 minutes. No other bleeding was identified. The duodenum distally was evaluated after all the bile and blood was cleared. No other bleeding sites were identified. Multiple other scattered white based ulcers were noted. The scope was then brought back into the stomach, which was desufflated after another retroflexion was performed, which was normal. The NG tube was repositioned in the stomach and the scope was removed. Job ID: [id number]
[2019-04-25] MEDS: Albumin 25% 25 GM/100 ML BOT IVPB SCH ×4 (03:55→23:51)
[2019-04-25] MEDS: Haloperidol Lactate 5 MG/ML VIAL IM SCH ×6 (03:55→23:51)
[2019-04-25] MEDS: HumaLOG 300 UNITS/3 ML VIAL SC PRN (04:23)
[2019-04-25] MEDS: Pantoprazole 80 MG, Admixture Fee 1 EACH in Sodium Chloride 0.9% 100 ML IVP SCH ×2 (04:23→15:21)
[2019-04-25 04:56] LABS: #Lymphocytes 0.7 thou/uL (1.20-3.40); #Monocytes 1.4 thou/uL (0.11-0.59); #Neutrophils 10.2 thou/uL (1.40-6.50); %Basophils 0.1 % (0.0-1.0); %Lymphocytes 5.7 % (21.0-51.0); %Neutrophils 83.2 % (42.0-75.0); Hemoglobin 7.7 g/dL (14.0-18.0); Mean Corpuscular HGB CONC 34.6 g/dL (32.0-36.0); Mean Corpuscular Hemoglobin 30.8 pg (27.0-31.0); Mean Platelet Volume 11.3 fL (7.4-10.4); Platelet Count 98 thou/uL (130-400); RBC Distribution Width 16.7 % (11.5-14.5); Red Blood Cell (RBC) Count 2.48 mill/uL (4.70-6.10); White Blood Cell (WBC) Count 12.3 thou/uL (4.8-10.8)
[2019-04-25 05:18] LABS: Anion Gap 16 mmol/L (10-20); BUN (Urea Nitrogen) 84 mg/dL (8.4-25.7); Calc. Creatinine Clearance 43 mL/min (70-130); Calcium 8.1 mg/dL (7.8-10.44); Carbon Dioxide 24 mmol/L (23-31); Chloride 109 mmol/L (98-107); Estimated GFR-MDRD 30; Glucose 173 mg/dL (80-115); Potassium 3.6 mmol/L (3.5-5.1); Sodium 145 mmol/L (136-145)
[2019-04-25] MEDS: Potassium Chloride 40 MEQ in Dextrose 5% in Water 1,000 ML IVPB SCH (05:49)
[2019-04-25] MEDS: Hydrocortisone Sod Succ/PF 100 mg/2 ml Vial IVP SCH ×2 (05:50→13:25)
[2019-04-25] MEDS: Insulin Glargine 10 UNITS in Pre-Filled Syringe SC SCH (08:46)
[2019-04-25] MEDS: Cefepime 0.5 GM, Admixture Fee 1 EACH in Sodium Chloride 0.9% 100 ML IVPB SCH ×2 (08:53→21:08)
--- NOTE | 2019-04-25 09:05 | PRG ---
DATE OF SERVICE: 04/24/2019 REQUESTING PHYSICIAN: Dr. Munoz. REASON FOR CONSULT: GI bleeding suspected. HISTORY OF PRESENT ILLNESS: I spent 30 minutes reviewing the chart, talked with Pulmonary Critical Care and Dr. Munoz as well as the patient's nurse today. He came into the hospital in transfer from an outside facility on the with a cardiac arrest. He has suffered anoxic brain injury. Apparently, he has a history of COPD, ongoing tobacco and alcohol abuse before being admitted. He had a shock liver. Apparently, he has been bleeding since admission. He has anoxic brain injury. He has got severe cardiomyopathy. He remains on the ventilator. There are ongoing conversations with the family. He has been made DNR. There are thoughts of withdrawing care, but apparently this has not been decided on until after [place], which is over 5 days away. He has about 3 bowel movements per shift with the nurses note were melenic. He has required ongoing transfusions. I have been asked by the Internal Medicine service to see him for an endoscopy. The patient is not able to decide on his care as he is intubated. PRESENT MEDICATIONS: Albumin, which has been discontinued, cefepime, dexamethasone, Epogen, fentanyl, furosemide, haloperidol, sliding scale insulin, norepinephrine, Ativan, morphine, Zofran, pancrelipase, Protonix drip, Propofol. PHYSICAL EXAMINATION: VITAL SIGNS: Pulse 116, blood pressure 87/63. Urine output 2-3 L per day. LABORATORY DATA: Sodium 145, potassium 3.7, BUN and creatinine were 81 and 2. Liver function tests not performed since the when his bilirubin was 1. AST and ALT were 45 and 362, cortisol 16 on the . CAT scan of the abdomen and pelvis on the showed chronic diverticulosis. INR was 2 on the . It has not been rechecked. ASSESSMENT: Likely ongoing gastrointestinal bleeding. Differential diagnosis would include upper gastrointestinal bleeding. Variceal bleeding is unlikely as he has minimal output through his nasogastric tube. Ischemic bowel or ischemic colon are possible as well as he has had cardiogenic shock and respiratory arrest and it show signs of end-organ ischemia with ischemic hepatopathy and ischemic nephropathy. RECOMMENDATIONS: 1. Continue IV PPI. 2. Resuscitate the patient with transfusion. 3. Check an INR and correct if necessary. 4. When patient becomes hemodynamically stable, we would consider an upper endoscopy. I do not think he would ever be a candidate for a lower endoscopy. I do not think he would survive it. Job ID: [id number]
--- NOTE | 2019-04-25 09:35 | RAD ---
CHEST 1 VIEW: Date: 04/25/19 HISTORY: Dyspnea. Respiratory failure. COMPARISON: 04/24/19. FINDINGS: Cardiac silhouette is magnified and enlarged. Pulmonary vasculature slightly less engorged than on th e prior study with slight improved aeration of each lung. Mediastinum is midline. Lines and tubes are unchanged in position. No evidence of pneumothorax. Cardi ac monitor leads overlie the chest. IMPRESSION: Slight interval improvement. POS: TPC
--- NOTE | 2019-04-25 10:34 | PRG ---
DATE OF SERVICE: 04/25/2019 SERVICE: Nephrology. SUBJECTIVE: A 68-year-old male with known history of chronic alcohol abuse, chronic systolic heart failure, admitted after [id number]-id-iwjksxrv cardiac arrest. Nephrology following the patient for acute kidney injury. The patient had EGD yesterday which showed multiple duodenal as well of gastric ulcer, status post treatment. He also received blood transfusion yesterday. Blood pressures have improved. The patient remained tachycardic. The patient reported to be obeying commands, though continues to move the head [id number] continuously. OBJECTIVE: VITAL SIGNS: Temperature 99.2, pulse 103, respiratory rate 24, SpO2 100% on FiO2 40%. Blood pressure is 107/62. GENERAL: Male patient who is in no obvious distress. Afebrile. Anicteric. HEENT: Normocephalic, atraumatic. OG and ET tubes are in place. NECK: Supple with no JVD. CARDIOVASCULAR: Irregular rhythm and rate. Tachycardic with soft systolic murmur. RESPIRATORY: Fair air entry with ventilator transmitted breath sounds noted. GI: Full, soft, nontender, nondistended with normal bowel sounds. UROGENITAL: Brower catheter is in place draining urine. EXTREMITIES: Jksw-yv-huimavig edema of all the extremities noted. This is improved somewhat. RAIL BONDER: The patient is awake. Continuously move head dlcw-wn-duen. Now able to make eye contact. Obeys simple commands like squeezing hand and shutting his eyes. DIAGNOSTIC DATA: CBC showed WBC count of 12.3, hemoglobin of 7.7, MCV of 89.0, platelet of 98. BMP showed sodium of 145, potassium 3.6, chloride 109, CO2 of 24, BUN 84, creatinine 2.20, glucose 173, calcium 8.1. ASSESSMENT: 1. Acute kidney injury: Prerenal in etiology related to cardiac arrest and hypovolemia from gastrointestinal bleeding. 2. Chronic kidney disease, stage 3. 3. Acute blood loss anemia due to gastrointestinal bleeding. 4. Acute on chronic gastrointestinal bleeding from multiple duodenal and gastric ulcers, status post treatment. 5. Anoxic brain injury. 6. Liv-yr-ywimyaim cardiac arrest. 7. Hypoalbuminemia. 8. Anasarca due to hypoalbuminemia. 9. Volume contraction with intravascular contraction. 10. Hypernatremia, improved. 11. Diabetes mellitus with hyperglycemia. 12. Chronic systolic heart failure with reduced ejection fraction. 13. Tachyarrhythmia: Possible atrial flutter with variable conduction rate. 14. Hypotension, improved with albumin. PLAN: 1. We will continue to provide albumin therapy given overt evidence of intravascular contraction despite edema, which was felt to be due to extravasation due to hypoalbuminemia. 2. Blood pressure has improved with albumin. The patient remained tachycardic. 3. Blood transfusion as per primary attending and dredge worker. 4. Avoid nephrotoxic agent. 5. Monitor electrolytes and replete as needed. Job ID: [id number]
--- NOTE | 2019-04-25 11:12 | PRG ---
DATE OF SERVICE: 04/25/2019 SUBJECTIVE: Mr. Henning remains intubated, shakes his head. He has opened his eyes when I talked to him. He actually squeezes my fingers when I asked him to squeeze my fingers and lets go when I asked him to let go. Nurses note he has had no melena overnight. OBJECTIVE: VITAL SIGNS: Temperature 100.6 max, 99 presently, blood pressure 102/47, and pulse is 114. In's and out's as of 7 this morning, 4056 and 1633. He had a 100 mL urine output so far since then. GENERAL: He is intubated. LUNGS: Without rhonchi. ABDOMEN: Soft and nontender. EXTREMITIES: No clubbing, cyanosis, or edema. LABORATORY DATA: Hemoglobin was 8.3 last night at 1800 hours and this morning 7.7, white count 12.3, and platelet count 98,000. Sodium 145, potassium 3.6, chloride 109, bicarb 24, BUN and creatinine 84 and 2.2. Yesterday, LFTs were normal. Protein was 4 and albumin was 3. INR is 1.4. ASSESSMENT: 1. Anoxic brain injury. 2. History of significant alcohol abuse. 3. History of shock liver, improved. 4. History of shock kidneys still with renal insufficiency. 5. History of gastrointestinal bleed with large ulcer in the duodenum with bleeding from a small erosions and ulcers in the second and third portions with visible vessel, active hemorrhage at that time, that was controlled last night. RECOMMENDATIONS: 1. Continue Protonix drip. 2. Start feeding. 3. Goal of transfusions would be to keep hemoglobin right around 7 to 8. If there is other reasons such as renal function, cardiac function, they want to go higher, I would defer to ICU service. We will continue to follow along with you. I would recommend banana bag daily secondary to the fact history of very heavy alcohol abuse in the past, that I started yesterday. Job ID: [id number]
--- NOTE | 2019-04-25 12:11 | PRG ---
DATE OF SERVICE: 04/25/2019 SUBJECTIVE: Bear franklin is following commands today. He held up two fingers quickly. He did the same thing for his . OBJECTIVE: VITAL SIGNS: Have been stable. Respiratory rates in the teens. Heart rate is in 80s, blood pressure is 94/61. LUNGS: Clear. HEART: Regular rhythm. ABDOMEN: Soft. EXTREMITIES: Without edema. He did pass a leak test. LABORATORY DATA: Chest x-ray is improved compared to yesterday. Review of the lab; white count is 12.3, hemoglobin is 7.7, platelets are 98,000. Sodium 145, potassium 3.6, chloride 109, bicarb 24, BUN 84, creatinine 2.2. IMPRESSION: Status post arrest with improved neurological function. I have explained to the that his neurological function and his pulmonary exam/status is stable enough for extubation. She is in agreement with this plan. PH 7.46, CO2 38, PO2 145 two days ago. His oximetry is not significantly changed and he has had no change in his acid-base status based on his chem 7. He does have heart failure, liver disease, and chronic kidney disease, but this is probably as good as it looks, so I have recommended extubation and continued supportive care. They were in agreement. CRITICAL CARE TIME: 30 minutes. Job ID: [id number]
--- NOTE | 2019-04-25 12:33 | PDOC.HOSPP ---
- Subjective Encounter Date: 04/25/19 Encounter Time: 10:35 Subjective: awake, looks at examiner per staff he has been following verbal stimuli, lifting fingers and thumbs up is off sedation, weaning trial is ongoing - Objective Vital Signs & Weight: Vital Signs (12 hours) Temp Pulse Pulse Resp BP BP Pulse Ox 04/25/19 11:40 95 04/25/19 11:33 98.2 F 104 H 27 H 97/80 97 04/25/19 11:00 98.3 F 04/25/19 10:24 109 H 102/47 L 04/25/19 10:00 25 H 04/25/19 09:47 99.1 F 114 H 22 H 102/47 L 97 04/25/19 08:01 98 97/66 04/25/19 08:00 28 H 04/25/19 07:59 100 04/25/19 07:00 99.2 F 04/25/19 06:00 31 H 04/25/19 04:00 98.8 F 31 H 04/25/19 02:00 37 H 04/25/19 01:56 120 H Weight Admit Weight 179 lb 0.246 oz Weight 203 lb 11.314 oz Most Recent Monitor Data Heart Rate from ECG 120 NIBP 104/65 NIBP BP-Mean 78 Respiration from ECG 21 SpO2 99 I&O: 04/24/19 04/25/19 04/26/19 06:59 06:59 06:59 Intake Total 2993 4056.5 450 Output Total 3420 1633 181 Balance -427 2423.5 269 Result Diagrams: 04/25/19 03:58 04/25/19 04:09 Additional Labs: Accuchecks 04/25/19 04/25/19 04/24/19 10:29 04:02 22:17 POC Glucose 150 H 188 H 230 H 04/24/19 18:26 POC Glucose 287 H Hospitalist ROS - Medication Medications: Active Medications Generic Name Dose Route Start Last Admin Trade Name Freq PRN Reason Stop Dose Admin Epoetin Cortez-epbx 20,000 unit 04/19/19 18:00 04/19/19 20:34 Retacrit SC 20,000 unit Q7D OMAR Administration Haloperidol Lactate 5 mg 04/23/19 11:45 04/25/19 08:46 Haldol IM 5 mg Q4H OMAR Administration Fentanyl Citrate 2,000 mcg/ 100 mls @ 0 mls/hr 04/16/19 21:56 04/19/19 02:08 Sodium Chloride IV 05/16/19 21:56 100 mls INF OMAR Administration Protocol Per Protocol Pantoprazole Sodium 80 mg/ 100 mls @ 10 mls/hr 04/17/19 00:30 04/25/19 04:23 Miscellaneous Medication 1 IVP 100 mls each/ Sodium Chloride INF OMAR Administration Norepinephrine Bitartrate 16 250 mls @ 0 mls/hr 04/17/19 05:00 04/24/19 14:37 mg/ Dextrose/Water IVPB 250 mls INF OMAR Administration Protocol Titrate Cefepime HCl 0.5 gm/ 100 mls @ 0 mls/hr 04/18/19 09:00 04/25/19 08:53 Miscellaneous Medication 1 IVPB 100 mls each/ Sodium Chloride Q12HR OMAR Administration Insulin Glargine 10 units/ 0.1 mls @ 0 mls/hr 04/22/19 09:00 04/25/19 08:46 Miscellaneous Medication SC 0.1 mls QAM OMAR Administration Potassium Chloride 40 meq/ 1,020 mls @ 75 mls/hr 04/21/19 15:30 04/25/19 05: 49 Dextrose/Water IVPB 1,020 mls INF OMAR Administration Multivitamins 10 ml/ Folic 1,011.2 mls @ 100 mls/hr 04/24/19 17:45 04/24/19 18:00 Acid 1 mg/ Thiamine HCl 100 mg IV 1,011.2 mls / Dextrose/Sodium Chloride Q24HR OMAR Administration Insulin Human Lispro 0 units 04/17/19 13:18 04/25/19 04:23 Humalog SC 2 unit .MILD SLIDING SCALE PRN Administration MILD SLIDING SCALE Protocol Lorazepam 2 mg 04/17/19 04:13 04/22/19 12:26 Ativan SLOW IVP 05/17/19 04:13 2 mg Q1H PRN Administration Breakthrough agitation Lorazepam 0.5 mg 04/24/19 12:00 04/24/19 23:35 Ativan SLOW IVP 0.5 mg Q12H OMAR Administration Morphine Sulfate 2 mg 04/17/19 04:13 04/22/19 04:27 Morphine SLOW IVP 05/17/19 04:13 2 mg Q1H PRN Administration BREAKTHROUGH PAIN/Agitation Propofol 1,000 mg 04/17/19 04:13 04/24/19 06:14 Diprivan IV 05/17/19 04:13 1,000 mg INF PRN Administration TO ACHIEVE GOAL RASS Protocol - Exam General Appearance: ill appearing Eye: anicteric sclera ENT: no oropharyngeal lesions, dry oral mucosa Neck: supple, no JVD Heart: RRR Respiratory: no wheezes, no rales, rhonchi Gastrointestinal: soft, non-tender, normal bowel sounds Gastrointestinal - other findings: abd wall and scrotal edema Extremities: no cyanosis, 1+ LE edema Neurological - other findings: ?right hemiparesis Hosp A/P (1) s/p cardiac arrest Status: Acute (2) Acute respiratory failure with hypoxia Code(s): J96.01 - ACUTE RESPIRATORY FAILURE WITH HYPOXIA Status: Acute (3) Cardiogenic shock Code(s): R57.0 - CARDIOGENIC SHOCK Status: Acute (4) CHF exacerbation Code(s): I50.9 - HEART FAILURE, UNSPECIFIED Status: Acute Qualifiers: Heart failure type: systolic Qualified Code(s): I50.23 - Acute on chronic systolic (congestive) heart failure (5) Acute metabolic encephalopathy Code(s): G93.41 - METABOLIC ENCEPHALOPATHY Status: Acute (6) Anemia Code(s): D64.9 - ANEMIA, UNSPECIFIED Status: Chronic Qualifiers: Anemia type: unspecified type Qualified Code(s): D64.9 - Anemia, unspecified (7) Anasarca Code(s): R60.1 - GENERALIZED EDEMA Status: Acute (8) Acute kidney injury Code(s): N17.9 - ACUTE KIDNEY FAILURE, UNSPECIFIED Status: Acute (9) Chronic systolic heart failure Code(s): I50.22 - CHRONIC SYSTOLIC (CONGESTIVE) HEART FAILURE Status: Chronic (10) Acute blood loss anemia Code(s): D62 - ACUTE POSTHEMORRHAGIC ANEMIA Status: Acute - Plan Likely might get extubated if he continues to respond ef of 20% on cefepime, solucortef, lantus, risperdal multiple duodenal ulcers, s/p EGD with control 04/24/2019 by , on protonix drip suspected anoxic brain injury due to cpr, moves left extremities freely than right side, await post extubation exam, CT/MRI to see the extent of injury if any. prognosis guarded On banana bag Appreciate help from all consults
[2019-04-25] MEDS: Lorazepam 2 MG/ML VIAL SLOW IVP SCH ×2 (13:26→23:50)
[2019-04-25 14:49] VITALS: BMI 33.9
--- NOTE | 2019-04-25 16:11 | PRG ---
DATE OF SERVICE: SUBJECTIVE: Mr. Henning remains intubated. He does follow commands, but appears agitated. His sedation is being weaned off. Over the weekend, he did have a GI bleed. He did have cauterization of a large duodenal ulcer over the weekend. OBJECTIVE: VITAL SIGNS: Blood pressure 110/83, pulse 105, and respirations 20. LUNGS: Clear to auscultation. HEART: Regular rate and rhythm. ABDOMEN: Soft, nontender, and nondistended. EXTREMITIES: No edema. PERTINENT LABORATORY DATA: Hemoglobin 7.7. Creatinine 2.2. IMPRESSION: 1. Respiratory failure. 2. Cardiac arrest. 3. Cardiomyopathy of unknown etiology. 4. Acute on chronic kidney disease. 5. Anemia. 6. Recent gastrointestinal bleed. RECOMMENDATIONS: At this point, we will continue with conservative therapy. The patient has multi-level comorbidities and would not recommend a more aggressive CV approach. We would like to see Mr. Henning improve clinically prior to proceeding. At this point, if he does awaken and follow commands appropriately, I would recommend a defibrillator and get EP involved. From a revascularization standpoint, we would certainly want his clinical status to improve. Otherwise, I have no further recommendations. Job ID: [id number]
[2019-04-25] MEDS: Multivitamins, Adult 10 ML, Folic Acid 1 MG, Thiamine HCl 100 MG in Dextrose 5 %-0.45 %... IV SCH (17:06)
[2019-04-26] MEDS: Haloperidol Lactate 5 MG/ML VIAL IM SCH ×5 (04:27→21:33)
[2019-04-26] MEDS: Pantoprazole 80 MG, Admixture Fee 1 EACH in Sodium Chloride 0.9% 100 ML IVP SCH ×2 (04:27→14:07)
[2019-04-26 04:47] LABS: Anion Gap 17 mmol/L (10-20); BUN (Urea Nitrogen) 86 mg/dL (8.4-25.7); BUN/Creatinine Ratio 33.99; Calc. Creatinine Clearance 37 mL/min (70-130); Calcium 8.4 mg/dL (7.8-10.44); Carbon Dioxide 22 mmol/L (23-31); Chloride 110 mmol/L (98-107); Estimated GFR-MDRD 26; Glucose 121 mg/dL (80-115); Phosphorus 2.8 mg/dL (2.3-4.7); Potassium 3.8 mmol/L (3.5-5.1); Sodium 145 mmol/L (136-145)
[2019-04-26 05:12] LABS: Hemoglobin 8.6 g/dL (14.0-18.0); Mean Corpuscular HGB CONC 34.5 g/dL (32.0-36.0); Mean Corpuscular Hemoglobin 31.6 pg (27.0-31.0); Mean Corpuscular Volume 91.6 fL (78.0-98.0); RBC Distribution Width 17.2 % (11.5-14.5); Red Blood Cell (RBC) Count 2.71 mill/uL (4.70-6.10)
[2019-04-26] MEDS: Albumin 25% 25 GM/100 ML BOT IVPB SCH (05:24)
[2019-04-26 06:29] LABS: #Lymphocytes 0.8 thou/uL (1.20-3.40); #Monocytes 1.2 thou/uL (0.11-0.59); #Neutrophils 12.6 thou/uL (1.40-6.50); %Eosinophils 0.1 % (0.0-10.0); %Lymphocytes 5.3 % (21.0-51.0); %Monocytes 8.1 % (0.0-10.0); %Neutrophils 86.4 % (42.0-75.0); Band 5 % (5-11); Lymphocytes 11 % (21-51); MDiff Complete? YES; Mean Platelet Volume 11.3 fL (7.4-10.4); Monocytes 7 % (0-10); Neutrophil 77 % (42-75); Platelet Count 107 thou/uL (130-400); Platelet Morphology Comment Appears Decreased; White Blood Cell (WBC) Count 14.6 thou/uL (4.8-10.8)
[2019-04-26] MEDS ORDERED: Potassium Chloride 40 MEQ in Dextrose 5% in Water 1,000 ML IVPB SCH (07:58)
[2019-04-26] MEDS: Cefepime 0.5 GM, Admixture Fee 1 EACH in Sodium Chloride 0.9% 100 ML IVPB SCH ×2 (09:52→21:33)
[2019-04-26] MEDS: Insulin Glargine 10 UNITS in Pre-Filled Syringe SC SCH (09:53)
[2019-04-26] MEDS ORDERED: Haloperidol Lactate 5 MG/ML VIAL IM SCH (10:15)
[2019-04-26] MEDS ORDERED: Dextrose 5 %-0.45 % NaCl 1,000 ML IV SCH (11:30)
[2019-04-26] MEDS: Dextrose 5 %-0.45 % NaCl 1,000 ML IV SCH ×2 (11:51→21:59)
--- NOTE | 2019-04-26 11:54 | PRG ---
DATE OF SERVICE: 04/26/2019 SERVICE: Nephrology. SUBJECTIVE: A 68-year-old being followed up for acute kidney injury. The patient with chronic alcohol abuse and chronic systolic heart failure, was admitted after out of hospital cardiac arrest. Clinically improved and was extubated yesterday. The patient is still restless, agitated, and shaking head [id number]. Obeys command and answer simple questions. OBJECTIVE: VITAL SIGNS: Temperature 98.0, pulse 109, respiratory rate 21, SpO2 of 92%, blood pressure is 116/75. GENERAL: He is male patient with continuous checking of head [id number]. VITAL SIGNS: Afebrile. HEENT: Anicteric. Conjunctival pallor noted. Normocephalic and atraumatic. Oral mucosa is dry. NECK: Supple with no JVD. CARDIOVASCULAR: Irregular rhythm. Tachycardic with soft systolic murmur. RESPIRATORY: Fair air entry bilaterally with some transmitted breath sounds. GI: Full, soft, nontender, nondistended with normal bowel sounds. UROGENITAL: Brower catheter is in place. EXTREMITIES: Blve-uc-wdswrsms edema of the extremities especially in both upper limbs noted. DROP WIRE ALINER: Conscious and alert. Agitated. The patient is moving head involuntarily [id number]. Obeys command. Answer simple questions. Verbalizing. Able to say his name though with some dysarthria. Cranial nerves 2 through 12 are grossly intact. Moves all extremities. DIAGNOSTIC DATA: CBC showed WBC count of 14.6, hemoglobin of 8.6, platelet of 107. Renal function panel showed sodium 145, potassium 3.8, chloride 110, CO2 of 22, BUN 86, creatinine 2.53. Glucose 121, calcium 8.4, phosphorus 2.8, albumin 4.8. Ammonia is 28. ASSESSMENT: 1. Acute renal failure: This is prerenal related to cardiac arrest. Creatinine has improved from 4.07 on admission to 2.01 two days ago before beginning to trend up to 2.53 today. 2. Chronic kidney disease: Stage and baseline creatinine are unknown at this time. 3. Anasarca related to hypoalbuminemia. Improved with albumin infusion. 4. Status post out of hospital cardiac arrest. 5. Tachyarrhythmia of unclear type. 6. Acute anoxic brain injury with encephalopathy. 7. Involuntary movement of the head. 8. Acute respiratory failure with improvement. 9. Cardiomyopathy of unknown etiology. 10. Acute on chronic blood loss anemia. 11. Acute GI bleeding. 12. Multiple duodenal and gastric ulcers. PLAN: 1. With worsening azotemia and creatinine since discontinuation of tube feeding, we will be increasing IV fluid therapy; however, given hypoalbuminemia and anasarca will be cautious. Also, the patient is extubated yesterday with high risk of pulmonary congestion given cardiomyopathy. Speech Therapy evaluation with possible commencement of oral intake as soon as possible is recommended. 2. We will continue to monitor renal function and generalized edema. Other treatment as per Cardiology and customer success associate. Job ID: [id number]
[2019-04-26] MEDS: Lorazepam 2 MG/ML VIAL SLOW IVP SCH (12:16)
--- NOTE | 2019-04-26 13:03 | PDOC.HOSPP ---
- Subjective Encounter Date: 04/26/19 Encounter Time: 12:00 Subjective: tries to communicate, some are legible, mostly are not keeps bobbing his head side to side with grunting at bedside - Objective Vital Signs & Weight: Vital Signs (12 hours) Temp 04/26/19 04:00 98.0 F Weight Admit Weight 179 lb 0.246 oz Weight 203 lb 0.732 oz Most Recent Monitor Data Heart Rate from ECG 109 NIBP 132/87 NIBP BP-Mean 102 Respiration from ECG 20 SpO2 99 I&O: 04/25/19 04/26/19 04/27/19 06:59 06:59 06:59 Intake Total 4056.5 3045 Output Total 1633 929 Balance 2423.5 2116 Result Diagrams: 04/26/19 04:12 04/26/19 04:12 Additional Labs: Accuchecks 04/26/19 04/26/19 04/25/19 11:57 04:19 23:16 POC Glucose 125 H 129 H 145 H 04/25/19 16:19 POC Glucose 158 H Hospitalist ROS - Medication Medications: Active Medications Generic Name Dose Route Start Last Admin Trade Name Freq PRN Reason Stop Dose Admin Epoetin Cortez-epbx 20,000 unit 04/19/19 18:00 04/19/19 20:34 Retacrit SC 20,000 unit Q7D OMAR Administration Fentanyl Citrate 2,000 mcg/ 100 mls @ 0 mls/hr 04/16/19 21:56 04/19/19 02:08 Sodium Chloride IV 05/16/19 21:56 100 mls INF OMAR Administration Protocol Per Protocol Pantoprazole Sodium 80 mg/ 100 mls @ 10 mls/hr 04/17/19 00:30 04/26/19 04:27 Miscellaneous Medication 1 IVP 100 mls each/ Sodium Chloride INF OMAR Administration Norepinephrine Bitartrate 16 250 mls @ 0 mls/hr 04/17/19 05:00 04/24/19 14:37 mg/ Dextrose/Water IVPB 250 mls INF OMAR Administration Protocol Titrate Cefepime HCl 0.5 gm/ 100 mls @ 0 mls/hr 04/18/19 09:00 04/26/19 09:52 Miscellaneous Medication 1 IVPB 100 mls each/ Sodium Chloride Q12HR OMAR Administration Insulin Glargine 10 units/ 0.1 mls @ 0 mls/hr 04/22/19 09:00 04/26/19 09:53 Miscellaneous Medication SC 0.1 mls QAM OMAR Administration Multivitamins 10 ml/ Folic 1,011.2 mls @ 100 mls/hr 04/24/19 17:45 04/25/19 17:06 Acid 1 mg/ Thiamine HCl 100 mg IV 1,011.2 mls / Dextrose/Sodium Chloride Q24HR OMAR Administration Dextrose/Sodium Chloride 1,000 mls @ 100 mls/hr 04/26/19 11:45 04/26/19 11:51 D5 1/2 Ns IV 1,000 mls .Q10H OMAR Administration Insulin Human Lispro 0 units 04/17/19 13:18 04/25/19 04:23 Humalog SC 2 unit .MILD SLIDING SCALE PRN Administration MILD SLIDING SCALE Protocol Lorazepam 2 mg 04/17/19 04:13 04/22/19 12:26 Ativan SLOW IVP 05/17/19 04:13 2 mg Q1H PRN Administration Breakthrough agitation Lorazepam 0.5 mg 04/24/19 12:00 04/26/19 12:16 Ativan SLOW IVP 0.5 mg Q12H OMAR Administration Morphine Sulfate 2 mg 04/17/19 04:13 04/22/19 04:27 Morphine SLOW IVP 05/17/19 04:13 2 mg Q1H PRN Administration BREAKTHROUGH PAIN/Agitation Propofol 1,000 mg 04/17/19 04:13 04/24/19 06:14 Diprivan IV 05/17/19 04:13 1,000 mg INF PRN Administration TO ACHIEVE GOAL RASS Protocol - Exam General Appearance: ill appearing Eye: PERRL, anicteric sclera ENT: no oropharyngeal lesions, dry oral mucosa Neck: supple, no JVD Heart: RRR, no murmur Respiratory: no wheezes, no rales Gastrointestinal: soft, non-tender, normal bowel sounds Extremities: no cyanosis, 2+ LE edema Neurological: cranial nerve grossly intact Neurological - other findings: right hemiparesis Hosp A/P (1) s/p cardiac arrest Status: Acute (2) Acute respiratory failure with hypoxia Code(s): J96.01 - ACUTE RESPIRATORY FAILURE WITH HYPOXIA Status: Resolved (3) Cardiogenic shock Code(s): R57.0 - CARDIOGENIC SHOCK Status: Acute (4) CHF exacerbation Code(s): I50.9 - HEART FAILURE, UNSPECIFIED Status: Acute Qualifiers: Heart failure type: systolic Qualified Code(s): I50.23 - Acute on chronic systolic (congestive) heart failure (5) Acute metabolic encephalopathy Code(s): G93.41 - METABOLIC ENCEPHALOPATHY Status: Acute (6) Anemia Code(s): D64.9 - ANEMIA, UNSPECIFIED Status: Chronic Qualifiers: Anemia type: unspecified type Qualified Code(s): D64.9 - Anemia, unspecified (7) Anasarca Code(s): R60.1 - GENERALIZED EDEMA Status: Acute (8) Acute kidney injury Code(s): N17.9 - ACUTE KIDNEY FAILURE, UNSPECIFIED Status: Acute (9) Chronic systolic heart failure Code(s): I50.22 - CHRONIC SYSTOLIC (CONGESTIVE) HEART FAILURE Status: Chronic (10) Acute blood loss anemia Code(s): D62 - ACUTE POSTHEMORRHAGIC ANEMIA Status: Acute (11) Duodenal ulcer Status: Acute - Plan extubated 04/25/2019, is stable on nasal canula still encephalopathic, likely from anoxic brain injury will add seroquel 25mg bid, is on haldol q4h, home dose of zoloft and lyrica ef of 20% on cefepime, lantus and nebs multiple duodenal ulcers, s/p EGD with control 04/24/2019 by , on protonix drip suspected anoxic brain injury due to cpr, moves left extremities freely than right side, CT/MRI to see the extent of injury when he is more calm. prognosis guarded, is aware of underlying multiple medical issues and current anoxic insult to brain On banana bag Appreciate help from all consults
--- NOTE | 2019-04-26 16:21 | PRG ---
DATE OF SERVICE: 04/26/2019 SUBJECTIVE: Mr. Henning has been extubated. He shakes his head a lot. He does know his name and he will talk to you at times, but then he will either cuss or just shake his head. Doing much better than he was yesterday when he was just extubated. He knows he is in a hospital of some sort or a medical facility, but that is about all. He does know his name. OBJECTIVE: VITAL SIGNS: Pulse 100 to 110, blood pressure 120/84. Urine output 936 yesterday, 300 today. LUNGS: Clear. HEART: Regular rhythm. ABDOMEN: Nontender. NEUROLOGIC: Status as described above. LABORATORY DATA: White count 14.6, hemoglobin 8.6, platelet count 107. Sodium 145, potassium 3.8, BUN and creatinine are 86 and 2.53. Blood cultures negative at five days. Outside studies report that he has failed a swallow study, which is not surprising. He just got extubated yesterday and he is still confused, although improved from yesterday. RECOMMENDATIONS: 1. IV Protonix q.12 hours. Can stop the drip. 2. Monitor H and H. 3. Continue banana bag until he can take p.o. and then give him oral multivitamin, thiamine, and folate. I gave him a few days to see if his mental status improves to the point where he can eat safely, probably right now, placing an NG tube or Dobbhoff tube is not feasible as he is going to pull it out. The same could be stated for a PEG. He had been getting tube feeds previously. I would re-evaluate his swallowing as his neurologic status progresses. If it does not, we can be reconsulted about possibility of a PEG tube. I do have concern that he may have some cirrhosis, although ultrasound or CAT scan without IV contrast did not show any when he was admitted on the . Dr. Luong will be on-call over the next two days for me. If GI input is needed, please do not hesitate to contact him. Otherwise, I will return on Thursday. Job ID: [id number]
[2019-04-26] MEDS: Multivitamins, Adult 10 ML, Folic Acid 1 MG, Thiamine HCl 100 MG in Dextrose 5 %-0.45 %... IV SCH (18:03)
[2019-04-26] MEDS: HumaLOG 300 UNITS/3 ML VIAL SC PRN (18:03)
[2019-04-26] MEDS: EPOETIN ALFA-EPBX (ESRD) 10,000 UNIT/ML VIAL SC SCH (18:47)
[2019-04-26] MEDS: Pantoprazole 40 MG VIAL IVP SCH (21:33)
[2019-04-26] MEDS: Pregabalin 75 MG CAP PO SCH (21:34)
[2019-04-27] MEDS: Lorazepam 2 MG/ML VIAL SLOW IVP SCH ×2 (00:07→12:34)
[2019-04-27] MEDS: Haloperidol Lactate 5 MG/ML VIAL IM SCH ×6 (00:10→20:32)
[2019-04-27 04:12] LABS: #Lymphocytes 0.5 thou/uL (1.20-3.40); #Monocytes 0.6 thou/uL (0.11-0.59); #Neutrophils 8.5 thou/uL (1.40-6.50); %Eosinophils 0.4 % (0.0-10.0); %Lymphocytes 5.4 % (21.0-51.0); %Monocytes 5.8 % (0.0-10.0); %Neutrophils 88.4 % (42.0-75.0); Hemoglobin 7.7 g/dL (14.0-18.0); Mean Corpuscular HGB CONC 33.2 g/dL (32.0-36.0); Mean Corpuscular Hemoglobin 30.8 pg (27.0-31.0); Mean Corpuscular Volume 92.8 fL (78.0-98.0); Platelet Count 117 thou/uL (130-400); RBC Distribution Width 17.4 % (11.5-14.5); Red Blood Cell (RBC) Count 2.51 mill/uL (4.70-6.10); White Blood Cell (WBC) Count 9.6 thou/uL (4.8-10.8)
[2019-04-27 04:28] LABS: Albumin 3.7 g/dL (3.4-4.8); Anion Gap 10 mmol/L (10-20); BUN (Urea Nitrogen) 83 mg/dL (8.4-25.7); BUN/Creatinine Ratio 34.58; Calc. Creatinine Clearance 39 mL/min (70-130); Calcium 8.1 mg/dL (7.8-10.44); Carbon Dioxide 26 mmol/L (23-31); Chloride 113 mmol/L (98-107); Estimated GFR-MDRD 27; Glucose 81 mg/dL (80-115); Phosphorus 3.2 mg/dL (2.3-4.7); Potassium 3.2 mmol/L (3.5-5.1); Sodium 146 mmol/L (136-145)
[2019-04-27] MEDS: Dextrose 5 %-0.45 % NaCl 1,000 ML IV SCH (04:31)
[2019-04-27] MEDS: D5 1/4 NS 1,000 ML IV SCH ×2 (06:57→15:06)
[2019-04-27] MEDS: Potassium Chloride 40 MEQ in Premix Bag 1 BAG IVPB SCH ×2 (07:04→17:56)
--- NOTE | 2019-04-27 08:13 | PRG ---
DATE OF SERVICE: 04/27/2019 SUBJECTIVE: A 68-year-old male with chronic alcohol abuse and chronic systolic heart failure, admitted after an [id number] cardiac arrest. Nephrology is following for acute on chronic renal failure. The patient is doing well since extubation. He is getting, but continues to have repetitive movement of the head and neck as well as repetitive verbalization of some words. He reportedly slept well last night. Still n.p.o. due to dysphagia. OBJECTIVE: VITAL SIGNS: Temperature 97.9, pulse 99, respiratory rate 17, SpO2 of 100% on 4 L nasal cannula, and blood pressure is 105/61. GENERAL: Male patient, in no obvious distress. Agitated with some restlessness. Afebrile. Anicteric. Acyanotic. HEENT: Normocephalic, atraumatic. Oral mucosa is dry. NECK: Supple with no JVD. CARDIOVASCULAR: Irregular rhythm and rate with normal heart sounds. RESPIRATORY: Fair air entry bilaterally with coarse transmitted breath sounds. GASTROINTESTINAL: Full, soft, nontender, and nondistended with normal bowel sounds. UROGENITAL: Wobjkdvf-pa-agzzxg scrotal edema noted as well as Brower catheter in place. EXTREMITIES: Ldae-sm-jrxygacg edema of the extremities especially upper limbs noted. CENTRAL NERVOUS SYSTEM: Conscious and alert. Say some few words. Answers few questions appropriately. However, has a repetitive neck and head movement. Some confusion, agitation and restlessness persists. DIAGNOSTIC DATA: CBC showed WBC count of 9.6, hemoglobin of 7.7, MCV of 92.8, and platelet of 117. Renal function panel showed sodium 146, potassium 3.2, chloride 113, CO2 of 26, BUN 83, creatinine 2.40, glucose 81, calcium 8.1, phosphorus 3.2, and albumin 3.7. Iron chemistry performed on April 23 showed serum iron of 22, TIBC of 191 with saturation of 12% and ferritin of 352. ASSESSMENT: 1. Acute kidney injury. 2. Chronic kidney disease of unknown baseline. 3. Anemia in chronic kidney disease. 4. Hypokalemia. 5. Anasarca due to congestive heart failure and hypoalbuminemia. 6. Hypoalbuminemia. 7. Acute on chronic blood loss anemia due to gastrointestinal bleeding. 8. Gastrointestinal bleeding due to multiple ulcers in both the duodenum and the stomach. 9. Anoxic encephalopathy. 10. Tachyarrhythmia. 11. Hypernatremia: Due to free water deficit. PLAN: 1. We will substitute D5 with half-normal saline with D5 with quarter saline due to worsening hypernatremia. 2. We will also replete serum potassium with potassium chloride. 3. We will also get serum magnesium and replete if indicated. 4. We will also start the patient on IV iron therapy due to anemia. 5. Other treatment as per fire support man and primary attending. Job ID: [id number]
[2019-04-27] MEDS: Pantoprazole 40 MG VIAL IVP SCH (08:24)
[2019-04-27] MEDS: Insulin Glargine 10 UNITS in Pre-Filled Syringe SC SCH (08:25)
--- NOTE | 2019-04-27 08:32 | RAD ---
Chest one view HISTORY: Respiratory failure. Follow-up. COMPARISON: 04/25/2019. FINDINGS: Cardiac silhouette remains magnified and enlarged. Pulmonary vasculature remains upper limi ts of normal. Patient is rotated leftward. No lobar consolidation or evidence of pneumothorax. Endotracheal catheter, nasogastric tube, and left internal jugular central venous catheter have been removed. Old left rib fractures now better visualized. No evidence of pneumothorax. IMPRESSION: Removal of the lines and tubes. Otherwise stable radiographic appearance of the chest.
--- NOTE | 2019-04-27 09:04 | PRG ---
DATE OF SERVICE: 04/27/2019 SUBJECTIVE: Mr. Henning's principal issues continued, gastrointestinal blood loss despite previous endoscopy. He is confused, unable to give much in the way of history. OBJECTIVE: VITAL SIGNS: Temperature 97.9, pulse 99, blood pressure 105/61. Intake for 24 hours, 1579. Output, 1081. HEENT: Pale oral mucous membranes. NECK: No JVD. CHEST: Clear to auscultation. CARDIAC: S1 and S2 regular. ABDOMEN: Soft and nontender. EXTREMITIES: No edema. He has gross hematochezia. LABORATORY DATA: White blood cell count 9.6, hematocrit 23.3, and platelet count 117. Sodium 146, potassium 3.2, chloride 113, CO2 of 26, BUN 83, creatinine 2.4, glucose 81. ASSESSMENT: 1. Continue diffuse gastrointestinal blood loss. 2. Acute kidney injury. 3. Encephalopathy. 4. Previous respiratory failure requiring mechanical ventilation. 5. Hypernatremia. 6. Hypokalemia. PLAN: 1. Electrolytes have been replaced by the [facility]. His respiratory status is stable. He is apparently receiving blood products. 2. GI is managing gastrointestinal blood loss. Job ID: [id number]
[2019-04-27] MEDS: Iron, Sodium Ferric Gluconate 250 MG in Sodium Chloride 0.9% 100 ML IVPB SCH (09:15)
[2019-04-27] MEDS: Cefepime 0.5 GM, Admixture Fee 1 EACH in Sodium Chloride 0.9% 100 ML IVPB SCH ×2 (09:30→20:32)
[2019-04-27] MEDS: Pantoprazole 80 MG, Admixture Fee 1 EACH in Sodium Chloride 0.9% 100 ML IVPB SCH ×2 (10:40→20:23)
[2019-04-27] MEDS: Pregabalin 75 MG CAP PO SCH ×2 (10:42→20:38)
--- NOTE | 2019-04-27 13:56 | PDOC.HOSPP ---
- Subjective Encounter Date: 04/27/19 Encounter Time: 09:50 Subjective: awakens easily, not oriented tries to talk, not fully legible at bedside - Objective Vital Signs & Weight: Vital Signs (12 hours) Temp Pulse Resp BP Pulse Ox 04/27/19 13:34 97.2 F L 104 H 18 105/59 L 97 04/27/19 11:39 96.2 F L 114 H 26 H 79/60 L 100 04/27/19 11:03 96.1 F L 110 H 21 H 83/51 L 98 04/27/19 11:02 97.1 F L 110 H 26 H 78/56 L 98 04/27/19 10:31 96 F L 108 H 19 66/47 L 100 04/27/19 10:13 96 F L 108 H 24 H 80/47 L 99 04/27/19 07:39 100 04/27/19 07:00 97.9 F 04/27/19 04:00 98.2 F Weight Admit Weight 179 lb 0.246 oz Weight 202 lb 2.622 oz Most Recent Monitor Data Heart Rate from ECG 113 NIBP 105/59 NIBP BP-Mean 74 Respiration from ECG 20 SpO2 100 I&O: 04/26/19 04/27/19 04/28/19 06:59 06:59 06:59 Intake Total 3045 1579 1120 Output Total 929 1081 230 Balance 2116 498 890 Result Diagrams: 04/27/19 03:50 04/27/19 03:50 Additional Labs: Accuchecks 04/27/19 04/27/19 04/26/19 10:58 03:55 21:39 POC Glucose 112 H 86 103 04/26/19 17:58 POC Glucose 152 H Hospitalist ROS - Medication Medications: Active Medications Generic Name Dose Route Start Last Admin Trade Name Freq PRN Reason Stop Dose Admin Epoetin Cortez-epbx 20,000 unit 04/19/19 18:00 04/26/19 18:47 Retacrit SC 20,000 unit Q7D OMAR Administration Haloperidol Lactate 10 mg 04/26/19 13:00 04/27/19 12:35 Haldol IM 10 mg Q4HR OMAR Administration Norepinephrine Bitartrate 16 250 mls @ 0 mls/hr 04/17/19 05:00 04/24/19 14:37 mg/ Dextrose/Water IVPB 250 mls INF OMAR Administration Protocol Titrate Cefepime HCl 0.5 gm/ 100 mls @ 0 mls/hr 04/18/19 09:00 04/27/19 09:30 Miscellaneous Medication 1 IVPB 100 mls each/ Sodium Chloride Q12HR OMAR Administration Insulin Glargine 10 units/ 0.1 mls @ 0 mls/hr 04/22/19 09:00 04/27/19 08:25 Miscellaneous Medication SC 0.1 mls QAM OMAR Administration Multivitamins 10 ml/ Folic 1,011.2 mls @ 100 mls/hr 04/24/19 17:45 04/26/19 18:03 Acid 1 mg/ Thiamine HCl 100 mg IV 1,011.2 mls / Dextrose/Sodium Chloride Q24HR OMAR Administration Dextrose/Sodium Chloride 1,000 mls @ 125 mls/hr 04/27/19 06:15 04/27/19 06:57 D5 1/4 Ns IV 1,000 mls .Q8H OMAR Administration Potassium Chloride 40 meq/ 100 mls @ 25 mls/hr 04/27/19 06:30 04/27/19 07:04 Device IVPB 04/27/19 22:29 100 mls 0630,1830 OMAR Administration Ferric Sodium Gluconate 120 mls @ 60 mls/hr 04/27/19 09:00 04/27/19 09:15 Complex 250 mg/ Sodium IVPB 04/29/19 09:01 120 mls Chloride DAILY OMAR Administration Pantoprazole Sodium 80 mg/ 100 mls @ 10 mls/hr 04/27/19 10:15 04/27/19 10:40 Miscellaneous Medication 1 IVPB 100 mls each/ Sodium Chloride INF OMAR Administration Insulin Human Lispro 0 units 04/17/19 13:18 04/26/19 18:03 Humalog SC 2 unit .MILD SLIDING SCALE PRN Administration MILD SLIDING SCALE Protocol Lorazepam 0.5 mg 04/24/19 12:00 04/27/19 12:34 Ativan SLOW IVP 0.5 mg Q12H OMAR Administration Pregabalin 150 mg 04/26/19 21:00 04/27/19 10:42 Lyrica PO Not Given BID OMAR Propofol 1,000 mg 04/17/19 04:13 04/24/19 06:14 Diprivan IV 05/17/19 04:13 1,000 mg INF PRN Administration TO ACHIEVE GOAL RASS Protocol Quetiapine Fumarate 25 mg 04/26/19 21:00 04/27/19 10:43 Seroquel PO Not Given BID OMAR Sertraline HCl 150 mg 04/27/19 09:00 04/27/19 10:43 Zoloft PO Not Given DAILY OMAR - Exam General Appearance: awake alert, ill appearing General - other findings: pallor++ Eye: PERRL, anicteric sclera ENT: no oropharyngeal lesions, dry oral mucosa Neck: supple, no JVD Heart: RRR, no murmur Respiratory: no wheezes, no rales Gastrointestinal: soft, non-tender, non-distended, normal bowel sounds Gastrointestinal - other findings: scrotal edema++, lower back edema Extremities: no cyanosis, 2+ LE edema Neurological - other findings: ?right hemiparesis Hosp A/P (1) s/p cardiac arrest Status: Acute (2) Acute respiratory failure with hypoxia Code(s): J96.01 - ACUTE RESPIRATORY FAILURE WITH HYPOXIA Status: Resolved (3) Cardiogenic shock Code(s): R57.0 - CARDIOGENIC SHOCK Status: Resolved (4) CHF exacerbation Code(s): I50.9 - HEART FAILURE, UNSPECIFIED Status: Acute Qualifiers: Heart failure type: systolic Qualified Code(s): I50.23 - Acute on chronic systolic (congestive) heart failure (5) Acute metabolic encephalopathy Code(s): G93.41 - METABOLIC ENCEPHALOPATHY Status: Acute (6) Anemia Code(s): D64.9 - ANEMIA, UNSPECIFIED Status: Chronic Qualifiers: Anemia type: unspecified type Qualified Code(s): D64.9 - Anemia, unspecified (7) Anasarca Code(s): R60.1 - GENERALIZED EDEMA Status: Acute (8) Acute kidney injury Code(s): N17.9 - ACUTE KIDNEY FAILURE, UNSPECIFIED Status: Acute (9) Chronic systolic heart failure Code(s): I50.22 - CHRONIC SYSTOLIC (CONGESTIVE) HEART FAILURE Status: Chronic (10) Acute blood loss anemia Code(s): D62 - ACUTE POSTHEMORRHAGIC ANEMIA Status: Acute (11) Duodenal ulcer Status: Acute - Plan Had large amount of blood per rectum this am, appears pale, will transfuse 2 u prbc, Hb around 7g extubated 04/25/2019, is stable on nasal canula still encephalopathic, likely from anoxic brain injury seroquel 25mg bid, home dose of zoloft and lyrica...pt is npo not getting these now, haldol q4h prn ef of 20% on cefepime, lantus and nebs multiple duodenal ulcers, s/p EGD with control 04/24/2019 by , on protonix iv, likely rebleed now suspected anoxic brain injury due to cpr, moves left extremities freely than right side, CT/MRI to see the extent of injury when he is more calm. prognosis guarded, is aware of underlying multiple medical issues and current anoxic insult to brain On banana bag Not sure if he can have a repeat egd, might end up on vent, is aware of risks involved in getting another egd. had expressed not to have trach or peg on him, if he ends up on vent again might need those. Appreciate help from all consults
[2019-04-27] MEDS: Multivitamins, Adult 10 ML, Folic Acid 1 MG, Thiamine HCl 100 MG in Dextrose 5 %-0.45 %... IV SCH (15:06)
--- NOTE | 2019-04-27 15:33 | PRG ---
DATE OF SERVICE: 04/27/2019 SUBJECTIVE: Mr. Henning passed 3 maroon stools today. He developed hypotension with his blood pressure dropping down into the 60s with that today. He received 2 units of transfusion, and his blood pressure has improved since then. He remains confused and only with nonsensical speech. Had no vomiting. OBJECTIVE: VITAL SIGNS: Current blood pressure is 110/81 with a pulse of 113, temperature 97.2. GENERAL: He is pale. Really, he is not oriented to his name, place, or year. He is unable to answer any questions directly other than when I palpated his abdomen and asked if he is tender, he specifically stated he had no tenderness. LUNGS: Have bilateral expiratory wheezes and crackles. HEART: Tachycardic. S1 and S2. ABDOMEN: Soft, nontender, and nondistended. Bowel sounds are present. EXTREMITIES: 2+ pitting lower extremity edema. LABORATORY DATA: Hemoglobin is 7.7 today, down from 8.6 yesterday. IMPRESSION: 1. Recurrent bleeding from duodenal ulcers. He just underwent endoscopy with cautery and hemoclipping of vessels in the duodenum on 04/24. Appears to be re-bleeding from these now. Unfortunately, at this point, he is not stable for endoscopy, and he is a very poor candidate for any kind of anesthesia. He has had the appropriate intervention and endoscopy as unlikely to be successful at this point. He is not a candidate for surgery. We will support him with blood products and restart proton pump inhibitor drip; however, I believe his overall prognosis is likely poor with this. 2. Status post cardiac arrest and some evidence of anoxic brain injury. He is completely confused since he was extubated. 3. Acute renal failure. 4. Congestive heart failure. 5. Poor underlying functional status before he ever had the initial bleed. RECOMMENDATIONS: 1. Pantoprazole drip. 2. Transfusion as needed. 3. The patient is DNAR and is not planned for a repeat intubation. I discussed his status with this family including his , his brother, and his niece. Job ID: [id number]
[2019-04-27 16:26] LABS: Hemoglobin 7.1 g/dL (14.0-18.0)
[2019-04-27 17:08] VITALS: BP 105/68
[2019-04-28] MEDS: Lorazepam 2 MG/ML VIAL SLOW IVP SCH ×2 (00:04→12:08)
[2019-04-28] MEDS: Haloperidol Lactate 5 MG/ML VIAL IM SCH ×4 (01:24→13:13)
[2019-04-28] MEDS: D5 1/4 NS 1,000 ML IV SCH ×3 (01:45→13:18)
[2019-04-28 04:47] LABS: Albumin 2.9 g/dL (3.4-4.8); Anion Gap 10 mmol/L (10-20); BUN (Urea Nitrogen) 82 mg/dL (8.4-25.7); BUN/Creatinine Ratio 37.44; Calc. Creatinine Clearance 42 mL/min (70-130); Calcium 7.4 mg/dL (7.8-10.44); Carbon Dioxide 23 mmol/L (23-31); Chloride 118 mmol/L (98-107); Estimated GFR-MDRD 30; Glucose 111 mg/dL (80-115); Phosphorus 2.4 mg/dL (2.3-4.7); Potassium 4.3 mmol/L (3.5-5.1); Sodium 147 mmol/L (136-145)
[2019-04-28] MEDS: Pantoprazole 80 MG, Admixture Fee 1 EACH in Sodium Chloride 0.9% 100 ML IVPB SCH (05:26)
[2019-04-28 07:00] LABS: #Eosinphils 0.1 thou/uL (0.0-0.7); #Lymphocytes 0.7 thou/uL (1.20-3.40); #Neutrophils 8.7 thou/uL (1.40-6.50); %Basophils 0.2 % (0.0-1.0); %Eosinophils 0.8 % (0.0-10.0); %Lymphocytes 6.5 % (21.0-51.0); %Monocytes 9.8 % (0.0-10.0); %Neutrophils 82.6 % (42.0-75.0); Hemoglobin 7.6 g/dL (14.0-18.0); Mean Corpuscular HGB CONC 33.9 g/dL (32.0-36.0); Mean Corpuscular Hemoglobin 31.2 pg (27.0-31.0); Mean Corpuscular Volume 92.1 fL (78.0-98.0); Mean Platelet Volume 10.3 fL (7.4-10.4); Platelet Count 108 thou/uL (130-400); RBC Distribution Width 14.9 % (11.5-14.5); Red Blood Cell (RBC) Count 2.43 mill/uL (4.70-6.10); White Blood Cell (WBC) Count 10.6 thou/uL (4.8-10.8)
[2019-04-28] MEDS ORDERED: WATER IVPB SCH ×2 (08:00→09:00)
[2019-04-28] MEDS ORDERED: ADMIXTURE FEE IVPB SCH ×2 (08:00→09:00)
[2019-04-28] MEDS ORDERED: DEXTROSE IVPB SCH ×2 (08:00→09:00)
[2019-04-28] MEDS ORDERED: PANTOPRAZOLE IVPB SCH (08:00)
[2019-04-28] MEDS: Pregabalin 75 MG CAP PO SCH (08:44)
[2019-04-28] MEDS ORDERED: CEFEPIME IVPB SCH (09:00)
[2019-04-28] MEDS: Insulin Glargine 10 UNITS in Pre-Filled Syringe SC SCH (11:10)
--- NOTE | 2019-04-28 11:38 | PRG ---
DATE OF SERVICE: 04/26/2019 SUBJECTIVE: Mr. Henning still continues with [id number] head movements. OBJECTIVE: VITAL SIGNS: Blood pressure 119/78, heart rate is 112, respiratory rate is in the 20s, oximetry is 95. GENERAL: He will follow commands. He is in no distress. He is not able to swallow successfully yet. He will not leave a Dobbhoff tube in place. Intake and output positive at 2116. LUNGS: Clear. HEART: Regular rhythm. S1 and S2 are normal. ABDOMEN: Soft and nontender. EXTREMITIES: Without edema. NEUROLOGIC: Grossly nonfocal. LABORATORY DATA: White count 14.6, hemoglobin 8.6, and platelets 107,000. Sodium 145, potassium 3.8, chloride 110, bicarb 22, BUN 86, and creatinine 2.53. IMPRESSION: 1. Status post mechanical ventilation after an arrest. 2. Congestive heart failure. 3. Chronic kidney disease. 4. Probable cirrhosis. 5. Gastrointestinal blood loss secondary to an ulcer, that was bleeding. PLAN: His prognosis is quite guarded. We will try to adjust medications for his combative and confused behavior. He is getting Haldol 5 mg every 4 hours IM, we may change this to 10 mg every 4 hours to see if this helps. His prognosis is quite poor for long-term survival in my opinion even if he were to return to normal neurological, he has a long history of noncompliance with medical care. Job ID: [id number]
--- NOTE | 2019-04-28 11:46 | PRG ---
DATE OF SERVICE: 04/28/2019 SUBJECTIVE: Mr. Henning has been extubated over the last couple of days. Unfortunately, he continues to have a GI bleed. His hemoglobin remains low. He has been transfused. Even with recent extubation, he remains confused. OBJECTIVE: VITAL SIGNS: Blood pressure 112/72, pulse 100, respirations 20. LUNGS: Clear to auscultation. HEART: Regular rate and rhythm. Tachycardic. ABDOMEN: Soft, nontender, nondistended. EXTREMITIES: No edema. GENERAL: The patient appears pale. LABORATORY DATA: Hemoglobin 7.6. Creatinine 2.1. IMPRESSION: 1. Metabolic encephalopathy. 2. Cardiac arrest. 3. Profound anemia. 4. Acute on chronic renal insufficiency. RECOMMENDATIONS: Certainly difficult situation. I spoke with the and daughter today. I do not feel he is an appropriate candidate for more aggressive cardiac approach. At this point, he is not able to consent. His quality of life is unlikely to improve with a more aggressive approach. The only aggressive approach would be a potential ICD, but would need to be cleared by EP. Even with ICD, there are some reservations, unless his mental status improved. May have them come by and give us an opinion. Otherwise, from my standpoint, I have no further recommendations. Job ID: [id number]
[2019-04-28] MEDS: Iron, Sodium Ferric Gluconate 250 MG in Sodium Chloride 0.9% 100 ML IVPB SCH (12:03)
[2019-04-28] MEDS: Multivitamins, Adult 10 ML, Folic Acid 1 MG, Thiamine HCl 100 MG in Dextrose 5 %-0.45 %... IV SCH (13:17)
--- NOTE | 2019-04-28 13:41 | PDOC.HOSPP ---
- Subjective Encounter Date: 04/28/19 Encounter Time: 12:30 Subjective: awake, is talking to family members at bedside not fully oriented, although family say he makes sense most of the time?. - Objective Vital Signs & Weight: Vital Signs (12 hours) Temp Pulse Ox 04/28/19 12:00 97.9 F 04/28/19 08:00 98.1 F 04/28/19 07:54 99 04/28/19 06:52 98 04/28/19 04:00 98.1 F Weight Admit Weight 179 lb 0.246 oz Weight 210 lb 8.663 oz Most Recent Monitor Data Heart Rate from ECG 114 NIBP 105/61 NIBP BP-Mean 75 Respiration from ECG 21 SpO2 99 I&O: 04/27/19 04/28/19 04/29/19 06:59 06:59 06:59 Intake Total 1579 4327.5 Output Total 1081 1130 420 Balance 498 3197.5 -420 Result Diagrams: 04/28/19 06:38 04/28/19 03:50 Additional Labs: Accuchecks 04/28/19 04/28/19 04/27/19 10:45 04:00 22:41 POC Glucose 159 H 117 H 107 04/27/19 16:15 POC Glucose 127 H Hospitalist ROS - Medication Medications: Active Medications Generic Name Dose Route Start Last Admin Trade Name Freq PRN Reason Stop Dose Admin Epoetin Cortez-epbx 20,000 unit 04/19/19 18:00 04/26/19 18:47 Retacrit SC 20,000 unit Q7D OMAR Administration Haloperidol Lactate 10 mg 04/26/19 13:00 04/28/19 13:13 Haldol IM 10 mg Q4HR OMAR Administration Norepinephrine Bitartrate 16 250 mls @ 0 mls/hr 04/17/19 05:00 04/24/19 14:37 mg/ Dextrose/Water IVPB 250 mls INF OMAR Administration Protocol Titrate Insulin Glargine 10 units/ 0.1 mls @ 0 mls/hr 04/22/19 09:00 04/28/19 11:10 Miscellaneous Medication SC 0.1 mls QAM OMAR Administration Dextrose/Sodium Chloride 1,000 mls @ 125 mls/hr 04/27/19 06:15 04/28/19 13:18 D5 1/4 Ns IV 1,000 mls .Q8H OMAR Administration Ferric Sodium Gluconate 120 mls @ 60 mls/hr 04/27/19 09:00 04/28/19 12:03 Complex 250 mg/ Sodium IVPB 04/29/19 09:01 120 mls Chloride DAILY OMAR Administration Cefepime HCl 0.5 gm/ 100 mls @ 200 mls/hr 04/28/19 09:00 04/28/19 08:18 Miscellaneous Medication 1 IVPB 100 mls each/ Dextrose/Water Q12HR OMAR Administration Insulin Human Lispro 0 units 04/17/19 13:18 04/26/19 18:03 Humalog SC 2 unit .MILD SLIDING SCALE PRN Administration MILD SLIDING SCALE Protocol Lorazepam 0.5 mg 04/24/19 12:00 04/28/19 12:08 Ativan SLOW IVP 0.5 mg Q12H OMAR Administration Pregabalin 150 mg 04/26/19 21:00 04/28/19 08:44 Lyrica PO Not Given BID [facility] Propofol 1,000 mg 04/17/19 04:13 04/24/19 06:14 Diprivan IV 05/17/19 04:13 1,000 mg INF PRN Administration TO ACHIEVE GOAL RASS Protocol Quetiapine Fumarate 25 mg 04/26/19 21:00 04/28/19 08:44 Seroquel PO Not Given BID [facility] Sertraline HCl 150 mg 04/27/19 09:00 04/28/19 08:44 Zoloft PO Not Given DAILY [facility] - Exam General Appearance: ill appearing Eye: PERRL, anicteric sclera ENT: no oropharyngeal lesions, moist mucosa Neck: supple, no JVD Heart: RRR, no murmur Respiratory: no wheezes, no rales Gastrointestinal: soft, normal bowel sounds, no rigidity Gastrointestinal - other findings: scrotal edema+++ Extremities: 2+ LE edema Neurological: speech deficit Neurological - other findings: right hemiparesis Hosp A/P (1) s/p cardiac arrest Status: Acute (2) Acute respiratory failure with hypoxia Code(s): J96.01 - ACUTE RESPIRATORY FAILURE WITH HYPOXIA Status: Resolved (3) Cardiogenic shock Code(s): R57.0 - CARDIOGENIC SHOCK Status: Resolved (4) CHF exacerbation Code(s): I50.9 - HEART FAILURE, UNSPECIFIED Status: Acute Qualifiers: Heart failure type: systolic Qualified Code(s): I50.23 - Acute on chronic systolic (congestive) heart failure (5) Acute metabolic encephalopathy Code(s): G93.41 - METABOLIC ENCEPHALOPATHY Status: Acute (6) Anemia Code(s): D64.9 - ANEMIA, UNSPECIFIED Status: Chronic Qualifiers: Anemia type: unspecified type Qualified Code(s): D64.9 - Anemia, unspecified (7) Anasarca Code(s): R60.1 - GENERALIZED EDEMA Status: Acute (8) Acute kidney injury Code(s): N17.9 - ACUTE KIDNEY FAILURE, UNSPECIFIED Status: Acute (9) Chronic systolic heart failure Code(s): I50.22 - CHRONIC SYSTOLIC (CONGESTIVE) HEART FAILURE Status: Chronic (10) Acute blood loss anemia Code(s): D62 - ACUTE POSTHEMORRHAGIC ANEMIA Status: Acute (11) Duodenal ulcer Status: Acute (12) Physical deconditioning Code(s): R53.81 - OTHER MALAISE Status: Acute - Plan d/w and family extensively at bedside, they will talk to hospice for likely inpt hospice. multiple organ failures Has gotten total of 11 units prbc's this admission, Hb around 7g with rec gi bleed extubated 04/25/2019, is stable on nasal canula still encephalopathic, likely from anoxic brain injury seroquel 25mg bid, home dose of zoloft and lyrica...pt is npo not getting these now, haldol q4h prn ef of 20% on cefepime, lantus and nebs multiple duodenal ulcers, s/p EGD with control 04/24/2019 by , on protonix iv, likely rebleed now suspected anoxic brain injury due to cpr, moves left extremities freely than right side, CT/MRI to see the extent of injury when he is more calm. prognosis poor On banana bag No repeat egd with high risk of resp failure and needing to go back on vent had expressed not to have trach or peg on him, if he ends up on vent again might need those. Appreciate help from all consults
[2019-04-28] MEDS ORDERED: [UNRECOGNIZED DRUG - OTHER] IV SCH (15:00)
[2019-04-28] MEDS ORDERED: THIAMINE HCL IV SCH (15:00)
[2019-04-28] MEDS ORDERED: DEXTROSE 5% IV SCH (15:00)
[2019-04-28] MEDS ORDERED: MULTIVITAMINS IV SCH (15:00)
[2019-04-28] MEDS ORDERED: FOLIC ACID IV SCH (15:00)
[2019-04-28 15:19] VITALS: TEMP 97.6
[2019-04-28] MEDS ORDERED: Lorazepam 2 MG/ML VIAL ONE (16:24)
--- NOTE | 2019-04-28 18:41 | PRG ---
DATE OF SERVICE: 04/28/2019 SUBJECTIVE: Bear Henning is still encephalopathic. He does verbalize, but will not consistently follow commands. His hemodynamics have been stable. OBJECTIVE: LUNGS: Clear. HEART: Regular rate and rhythm. ABDOMEN: Soft. I met with the niece. It was in the room. The family is opting for hospice care, moving forward. I believe this seems reasonable. It is unlikely given his liver dysfunction, his renal insufficiency, his cardiomyopathy and recent arrest with a post arrest encephalopathy that he will ever be able to live independently again. They all agree that he would never want to live like he is currently. Job ID: [id number]
--- NOTE | 2019-04-28 19:12 | PRG ---
DATE OF SERVICE: 04/28/2019 SUBJECTIVE: Mr. Henning remains confused. He passed another bloody stool today. OBJECTIVE: His abdomen is soft. Shows no signs of tenderness currently. IMPRESSION: 1. Multiorgan failure with cardiomyopathy. 2. Renal failure. 3. Persistent encephalopathy after cardiac arrest. 4. Persistent GI bleeding despite intervention endoscopically. RECOMMENDATIONS: The family has opted to proceed with hospice care. This is appropriate for Mr. Henning. GI will be available as needed. Job ID: [id number]
--- NOTE | 2019-04-28 20:08 | DIS ---
DATE OF ADMISSION: 04/17/2019 DATE OF DISCHARGE: 04/28/2019 DISCHARGE DISPOSITION: [facility]. PRIMARY DISCHARGE DIAGNOSES: Status post cardiac arrest with suspected anoxic brain injury, acute respiratory failure with hypoxia, cardiogenic shock on arrival, CHF exacerbation with systolic dysfunction and poor ejection fraction, acute blood loss anemia with duodenal ulcer bleeds, anasarca, acute kidney injury, severe physical deconditioning. PROCEDURES DONE DURING HOSPITALIZATION: CT of the brain done showed no acute intracranial abnormality on the day of admission. This was without contrast. CT of the abdomen and pelvis without contrast done showed small right and tiny left pleural effusion with bibasilar atelectasis. Colonic diverticulosis was seen. Echo with 2D Doppler showed EF of 15% to 20%, moderate mitral regurgitation was seen. EEG done on 04/22/2019 showed diffuse slowing consistent with diffuse encephalopathic process. No evidence of seizure activity was seen. Upper endoscopy was done on 04/24/[address] Hurtado. This showed large duodenal 2.1 cm ulcer and scattered ulcerations throughout the 2nd and 3rd portions of the duodenum with two ulcers with visible vessels, actively spurting blood, one just distal to the ampulla and one just proximal. Both were treated with epinephrine and ablated. The larger bleeding vessel had a hemoclip placed as well. The patient had a total of 11 units of packed cell transfusions given. Blood cultures x2, no growth. Urine culture , no growth. Hemoglobin and hematocrit on the day of discharge 7.6 and 22, platelet count 108. Had initial hemoglobin of 5.5 g and hematocrit of 17 on the day of admission. PT, INR, PTT on the day of admission 22, 2.0, and 30. Discharge BUN and creatinine were 82 and 2.1. Admitting creatinine was 4.0. Admitting BUN was 127, albumin 2.9 on the day of discharge. Serum iron 22, TIBC 191, percent saturation 12, ferritin was 352. Admitting AST 616, ALT 345, alkaline phosphatase 55, CK- MB 27. Troponin I was 2.17. BNP was 4014 on the day of admission. Lactic acid was 9.6 on the day of admission. DISCHARGE MEDICATION: Please note the patient is being discharged to inpatient hospice. ALLERGIES: NO KNOWN DRUG ALLERGIES. INPATIENT CONSULT: 1. Dr. Ashley for Pulmonology. 2. Dr. Jeff Sagastume/Bryant for Gastroenterology. 3. Dr. Mcmullen for Nephrology. 4. Dr. Shoemaker for Cardiology. BRIEF COURSE DURING HOSPITALIZATION: The patient initially got admitted on the after he sustained cardiac arrest. The patient had CPR done en route in the EMS and brought to ER. He was intubated in the emergency room. The patient was on hypothermia protocol. Prior to hospitalization, the patient had very poor functional status and was barely getting up from his bed. He had known history of CHF with systolic dysfunction, generalized anasarca prior to hospitalization. This got worse during his stay here. The patient also had hemoglobin of 5 g on arrival. He was suspected to have GI bleed with a creatinine of 4 and BUN of 127 on the day of admission. He has had consultation with Dr. Jeff Sagastume. The patient was too unstable for any procedures. He has had multiple transfusions done for his anemia. In fact, a total of 11 units of packed cell was given. He was successfully extubated despite which the patient did not make good progress. He likely has sustained anoxic encephalopathy and was occasionally following commands, but was mostly talking gibberish. In view of multiple medical issues, generalized anasarca, likely ischemic cardiomyopathy, acute kidney injury, recurrent GI bleed with 11 units of packed cell transfusions, encephalopathy, and multiple organ failure, the patient's family opted for inpatient hospice as he did not want to live like this. He has been accepted by [facility] and will be shortly discharged there. Please see a [id number] documentation for the day of discharge on Fast Orientation. Job ID: [id number] MTDD
--- NOTE | 2019-04-30 10:19 | PQF ---
ROJAS URENA VINAYA KUMAR MD [id number] CLINICAL DOCUMENTATION CLARIFICATION FORM: POST DISCHARGE Addendum to original discharge summary date: ____ Late entry note date: __ DATE:04/30/2019 ATTN: CORONA AMEZCUA MD Please exercise your independent, professional judgment in responding to the clarification form. Clinical indicators are provided on the bottom of this form for your review Please check appropriate box(s) to clarify if the following diagnosis has been ruled in or ruled out: NSTEMI type II [ x ] Ruled in diagnosis [ ] Continue to treat [ x ] Resolved [ ] Ruled out diagnosis [ ] Cannot rule out diagnosis [ ] Other diagnosis [ ] Unable to determine In addition, please specify: Present on Admission (POA): [ x ] Yes [ ] No [ ] Unable to determine For continuity of documentation, please document condition throughout progress notes and discharge summary. Thank You. CLINICAL INDICATORS - SIGNS / SYMPTOMS / LABS Cardiac arrest w mati, Acute CHF,NSTEMI Type II-Documented in ED on 04/17 by Devin Bruce 12 lead EKG show first degree AV block,T waves ,Eldred normal-Documented in ED on 04/17 by Devin Bruce Elevated troponin-Documented in PN on 04/18 by Case, Mitesh Cardiogenic shocck-Documented in PN on 04/18 by Case, Mitesh RISK FACTORS Cardiac arrest w mati-Documented in ED on 04/17 by Devin Bruce Cardiogenic shocck-Documented in PN on 04/18 by Case, Mitesh CHF Exacerbation-Documented in DS on 04/28 by corona Painter TREATMENTS Echo with 2D Doppler-Documented in DS on 04/28 by corona Painter [employer] Winform ViewerEEG-Cardiogenic shocck- Documented in DS on 04/28 by corona Painter Furosemide 40 mg IV -Documented in medication snapshot Aspirin 81 mg po-Documented in medication snapshot (This form is maintained as a part of the permanent medical record) 2014 [employer]. All Rights Reserved [email or web address] [not provided] MTDD
--- NOTE | 2019-05-04 00:15 | PQF ---
ROJAS URENA VINAYA KUMAR MD [id number] [id number] CLINICAL DOCUMENTATION CLARIFICATION FORM: POST DISCHARGE Addendum to original discharge summary date: ____ Late entry note date: __ DATE:05/03/2019 ATTN:NIKKO MUNOZ MD Please exercise your independent, professional judgment in responding to the clarification form. Clinical indicators are provided on the bottom of this form for your review Please check appropriate box(s) to determine sequence of events: kindly clarify the cardiac arrest etiology: [ ] Cardiac arrest is due to Acute kidney injury [ ] Cardiac arrest is due to CHF exacerbation [ ] Cardiac arrest is due to Gastrointestinal bleeding [ ] Cardiac arrest is due to Acute blood loss anemia [ ] Other diagnosis [ x ] Unable to determine In addition, please specify: Present on Admission (POA): [ ] Yes [ ] No [ ] Unable to determine For continuity of documentation, please document condition throughout progress notes and discharge summary. Thank You. CLINICAL INDICATORS - SIGNS / SYMPTOMS / LABS BNP is more then 4000-Documented in H&P on 04/17 by Jean Washington Creatinine-4.0,BUN is 127-Documented in H&P on 04/17 by Jean Washington Hemoglobin 5.5-Documented in H&P on 04/17 by Jean Washington Multiple duodenal ulcers s/p EGD with control 04/24/2019 by - Documented in Hospitalist PN on 04/28 Nikko Munoz Status post cardiac arrest with suspected anoxic brain injury- Documented in Discharge summary on 04/28 by Nikko Munoz CHF exacerbation with systolic dysfunction and poor ejection fraction- Documented in Discharge summary on 04/28 by Nikko Munoz Acute blood loss anemia with duodenal ulcer bleeds-Documented in Discharge summary on 04/28 by Nikko Munoz Acute kidney injury-Documented in Discharge summary on 04/28 by Nikko Munoz RISKS: CHF exacerbation with systolic dysfunction and poor ejection fraction- Documented in Discharge summary on 04/28 by Nikko Munoz Acute blood loss anemia with duodenal ulcer bleeds-Documented in Discharge summary on 04/28 by Nikko Munoz Acute kidney injury-Documented in Discharge summary on 04/28 by Nikko Munoz TREATMENT: Titrate vasopressors for map of 65-Documented in H&P on 04/17 by Jean Washington Type and cross and transfuse packed RBCs-Documented in H&P on 04/17 by Jean Bañuelos IV proton pump inhibitor drip-Documented in H&P on 04/17 by Jean Washington To consult GI for evaluation and further management-Documented in H&P on 04/17 by Jean Washington Protonix IV-Documented in Hospitalist PN on 04/28 Nikko Munoz has gotten total of 11 units PRBC's this admission-Documented in Hospitalist PN on 04/28 Nikko Munoz (This form is maintained as a part of the permanent medical record) 2014 [employer] All Rights Reserved [email or web address] [not provided] MTDD
== END 2019-04-28 16:56 | disposition hospice, inpatient (51) | DRG 280 ==
LOC: ERS 20:39 → CCU 04-17 00:48
PROVIDERS: ADMIT Internal Medicine; ATTEND Internal Medicine
PROC: 0BH17EZ Insertion of Endotracheal Airway into Trachea, Via Natural or Artificial Opening (ICD-10-PCS; 2019-04-17)
PROC: 5A1955Z Respiratory Ventilation, Greater than 96 Consecutive Hours (ICD-10-PCS; 2019-04-17)
PROC: 30233N1 Transfusion of Nonautologous Red Blood Cells into Peripheral Vein, Percutaneous Approach (ICD-10-PCS; 2019-04-20)
PROC: 0DJ08ZZ Inspection of Upper Intestinal Tract, Via Natural or Artificial Opening Endoscopic (ICD-10-PCS; principal; 2019-04-24)
DX: I46.9 Cardiac arrest, cause unspecified (principal); K72.00 Acute and subacute hepatic failure without coma; I21.A1 Myocardial infarction type 2; N17.0 Acute kidney failure with tubular necrosis; J69.0 Pneumonitis due to inhalation of food and vomit; I50.23 Acute on chronic systolic (congestive) heart failure; G93.41 Metabolic encephalopathy; J96.01 Acute respiratory failure with hypoxia; K26.0 Acute duodenal ulcer with hemorrhage; K25.0 Acute gastric ulcer with hemorrhage; G93.1 Anoxic brain damage, not elsewhere classified; D62 Acute posthemorrhagic anemia; E87.2 Acidosis; D68.9 Coagulation defect, unspecified; I42.9 Cardiomyopathy, unspecified; E87.0 Hyperosmolality and hypernatremia; I13.0 Hypertensive heart and chronic kidney disease with heart failure and stage 1 through stage 4 chronic kidney disease, or unspecified chronic kidney disease; E87.1 Hypo-osmolality and hyponatremia; E03.9 Hypothyroidism, unspecified; F17.200 Nicotine dependence, unspecified, uncomplicated; J44.9 Chronic obstructive pulmonary disease, unspecified; E87.6 Hypokalemia; E83.39 Other disorders of phosphorus metabolism; E11.40 Type 2 diabetes mellitus with diabetic neuropathy, unspecified; E11.22 Type 2 diabetes mellitus with diabetic chronic kidney disease; Z66 Do not resuscitate; Z51.5 Encounter for palliative care; E11.65 Type 2 diabetes mellitus with hyperglycemia; E88.09 Other disorders of plasma-protein metabolism, not elsewhere classified; N18.3 Chronic kidney disease, stage 3 (moderate)
CPT/HCPCS: 31500; 36415; 36416; 36430; 36556; 51702; 70450; 71045; 74176; 80048; 80053; 80069; 80076; 81003; 82040; 82140; 82533; 82550; 82553; 82728; 82805; 83540; 83550; 83605; 83690; 83735; 83880; 84100; 84439; 84443; 84484; 85025; 85610; 85730; 86850; 86900; 86901; 87040; 87086; 93005; 93306; 94002; 94003; 94760; 95816; 95819; 96365; 96366; 96367; 96368; 96375; 99292; C9113; J0171; J0692; J0696; J1100; J1630; J1720; J1815; J1940; J2060; J2270; J2354; J2543; J2704; J2916; J3010; J3370; J3411; J3480; J3490; J7042; J7050; J7070; P9016; P9047; Q5105